=== PATIENT | male | born 1975 | race Caucasian/White ===

== ENCOUNTER 2017-01-20 18:09 | Inpatient (IN) | payer OTHER, MEDICARE ==
[~2017-01-20] VITALS: Ht 177.8 cm; Wt 95.3 kg
[~2017-01-20 18:09] MED LIST: COLACE100 MG PO; GOOD NEIGHBOR100 M5 PO; KEPPRA 500MG T500 MG PO; METFORMIN HCL500 MG PO; MIRTAZAPINE15 MG PO; NEURONTIN300 MG PO; OS-CAL 500500 M1 PO; OXYCODONE HYDRO10 M1 PO; OXYCODONE5 M1 PO; PROTONIX 40MG T40 MG PO; TRAZODONE100 MG PO; WARFARIN SODIU7.5 MG PO
--- NOTE | 2017-01-20 18:15 | NUR ---
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 PT HAD NO INCONTINENCE NO LOC.
--- NOTE | 2017-01-20 18:18 | ED NECK/BACK PAIN COMPLAINT ---
History of Present Illness General Chief Complaint: Low Back Pain/Injury Stated Complaint: BIBA FOR BACK PAIN Vital Signs & Intake/Output Vital Signs & Intake/Output Vital Signs Date Time Temp Pulse Resp B/P Pulse O2 O2 Flow FiO2 Ox Delivery Rate 01/21 709 97.3 75 18 130/74 93 Room Air 01/20 2210 77 22 124/71 98 Room Air 01/20 2200 96.9 67 20 120/78 94 Room Air 01/20 2046 97.8 81 16 130/74 95 Room Air 01/20 1820 98.5 92 18 129/64 92 Room Air ED Intake and Output 01/21 0000 01/20 1200 Intake Total Output Total 350 Balance -350 Output, Urine 350 Patient 210 lb Weight Allergies Coded Allergies: cat pelt standardized allergenic ex (CAT PELT STANDARDIZED EXTRACT) (CATS ) Reconcile Medications Folic Acid 1 MG TABLET 1 TAB PO DAILY SUPPLEMENT (Reported) Furosemide (Unknown Strength) TABLET (Unknown Dose) UNKNOWN (Reported) Gabapentin 300 MG CAPSULE 1 CAP PO TID NERVE PAIN (Reported) Levetiracetam (Keppra) 750 MG TABLET 1 TAB PO BID SEIZURES (Reported) Lidocaine 5 % ADH..PATCH 1 PAT TOP DAILY PAIN (Reported) Metformin HCl 500 MG TABLET 1 TAB PO BID DM (Reported) Oxycodone HCl 10 MG TABLET 1 TAB PO TID PAIN (Reported) Trazodone HCl 100 MG TABLET 1 TAB PO QPM SLEEP (Reported) Warfarin Sodium (Coumadin) (Unknown Strength) TABLET (Unknown Dose) PO AD BLOOD THINNER (Reported) Triage Note: PER PT GOING TO SIT IN CHAIR LAST NIGHT AND LEGS GAVE OUT LAST DOSE OF 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 PT HAD NO INCONTINENCE NO LOC. Past History Travel History Traveled to [place] past 21 day No Medical History Neurological: seizure, BRAIN LESIONS EENT: NONE Cardiovascular: NONE Respiratory: NONE Gastrointestinal: NONE Hepatic: NONE Renal: NONE Musculoskeletal: BACK PAIN Psychiatric: ETOH USE Endocrine: NIDDM Blood Disorders: DVT Cancer(s): NONE ALARM MECHANIC/Reproductive: NONE History of MRSA: No History of VRE: No History of CDIFF: No Surgical History Surgical History: non-contributory Psychosocial History Who do you live with Family Services at Home None What is your primary language South African Tobacco Use: Never used Progress Plan of Care: Orders Procedure Date/time Status Regular Diet 01/21 B Active PROTHROMBIN TIME 01/21 06 Complete CBC WITHOUT DIFFERENTIAL 01/21 06 Complete BASIC ELECTROLYTES PLUS BUN&CR 01/21 06 Complete Seizure Precautions 01/21 0143 Active PT EVAL MOD COMPLEX 30 MIN 01/21 UNK Complete Nursing Misc 01/21 UNK Active FingerStick- Glucose 01/21 UNK Active MISSING MEDICATION FORM 01/21 UNK Active PHYSICIAN CONSULT 01/21 UNK Active Vital Signs 01/20 2259 Active Teach/Educate 01/20 225 Active Pain Treatment and Response 01/20 2259 Active Nutritional Intake, Monitor 01/20 2259 Active Isolation 01/20 2259 Active Intake & Output 01/20 2259 Active Patient Care Conference 01/20 2259 Active Activity/Ambulation 01/20 225 Active Pathway - chart 01/20 221 Active House Staff 01/20 221 Active Patient Data 01/20 221 Active Saline Lock 01/20 2150 Active Misc Message 01/20 215 Active ED Holding Orders 01/20 215 Active Admit to inpatient 01/20 215 Active Vital Signs 01/20 215 Active Activity/Ambulation 01/20 215 Active Code Status 01/20 215 Active Intake & Output 01/20 2125 Active URINALYSIS 01/20 211 Complete Patient Data 01/20 210 Active PARTIAL THROMBOPLASTIN TIME 01/20 204 Complete PROTHROMBIN TIME 01/20 204 Complete COMPREHENSIVE METABOLIC PANEL 01/20 204 Complete CBC WITHOUT DIFFERENTIAL 01/20 2042 Complete PT Evaluate & Treat 01/20 UNK Active Lab Add-on Test 01/20 UNK Active VTE Mechanical Prophylaxis 01/20 UNK Active Current Medications Sig/Diane Start time Last Medication Dose Stop Time Status Admin Trazodone HCl 100 MG QPM 01/21 2200 AC (Desyrel) Hydromorphone HCl 1 MG Q6P PRN 01/21 1200 AC (Dilaudid) Hydromorphone HCl 2 MG Q6P PRN 01/21 1145 CAN (Dilaudid) Enoxaparin Sodium 40 MG DAILY 01/21 1000 CAN (Lovenox) Insulin Aspart 0 TIDAC 01/21 0800 AC (NovoLOG) Ibuprofen 600 MG Q6P PRN 01/20 2215 AC (Motrin) Laboratory Tests 01/21/17 0636: Anion Gap 8, Estimated GFR > 60, BUN/Creatinine Ratio 13.3, PT 28.5 H, INR 2.74 H, CBC w Diff NO MAN DIFF REQ, RBC 4.63 L, MCV 87.4, MCH 29.1, RDW 15.6 H, MPV 8.5, Gran % 67.8, Lymphocytes % 19.4 L, Monocytes % 10.3 H, Eosinophils % 2.1, Basophils % 0.4, Absolute Granulocytes 4.1, Absolute Lymphocytes 1.2, Absolute Monocytes 0.6, Absolute Eosinophils 0.1, Absolute Basophils 0, PUBS MCHC 33.3 01/20/170: Anion Gap 10, Estimated GFR > 60, BUN/Creatinine Ratio 11.7, Glucose 90, Calcium 9.5, Total Bilirubin 1.0, AST 24, ALT 27, Alkaline Phosphatase 141 H, Total Protein 7.3, Albumin 3.9, Globulin 3.4, Albumin/Globulin Ratio 1.1, PT 37.6 H, INR 3.63 H, APTT 45 H, CBC w Diff NO MAN DIFF REQ, RBC 4.73, MCV 86.7, MCH 28.7, RDW 15.2 H, MPV 8.0, Gran % 64.4, Lymphocytes % 23.1, Monocytes % 9.9 H, Eosinophils % 1.7, Basophils % 0.9, Absolute Granulocytes 4.2, Absolute Lymphocytes 1.5, Absolute Monocytes 0.6, Absolute Eosinophils 0.1, Absolute Basophils 0.1, PUBS MCHC 33.1, Urinalysis LIGHT H, Urine Color YEL, Urine Clarity CLEAR, Urine pH 7.5, Ur Specific [place] 1.020, Urine Protein TRACE H, Urine Ketones NEG, Urine Nitrite NEG, Urine Bilirubin NEG, Urine Urobilinogen 1.0, Ur Leukocyte Esterase NEG, Ur Microscopic SEDIMENT EXAMINED, Urine RBC RARE , Urine WBC RARE, Ur Epithelial Cells FEW, Urine Bacteria FEW H, Urine Mucus FEW, Urine Hemoglobin NEG, Urine Glucose NEG Departure Departure Condition: Stable Referrals: SANDY MANNING MD (PCP/Family) Departure Forms: Customer Survey General Discharge Information
[2017-01-20] MEDS ORDERED: OXYCODONE HCL10 M2 PO (18:20)
[2017-01-20] MEDS ORDERED: TRAZODONE HCL100 M1 PO (18:21)
[2017-01-20] MEDS ORDERED: COUMADIN2.5 M1 PO (18:21)
[2017-01-20] MEDS ORDERED: KEPPRA750 M1 PO (18:22)
[2017-01-20] MEDS ORDERED: FOLIC ACID1 M1 PO (18:22)
[2017-01-20] MEDS ORDERED: GABAPENTIN300 M2 PO (18:22)
[2017-01-20] MEDS ORDERED: METFORMIN HCL500 M3 PO (18:22)
[2017-01-20] MEDS ORDERED: LIDOCAINE1 EACH TOP (18:23)
[2017-01-20] MEDS ORDERED: FUROSEMIDE40 M1 PO (18:23)
--- NOTE | 2017-01-20 18:36 | ED NECK/BACK PAIN COMPLAINT ---
See Addendum History of Present Illness General Chief Complaint: Low Back Pain/Injury Stated Complaint: BIBA FOR BACK PAIN Source: patient, family Exam Limitations: no limitations Allergies Coded Allergies: cat pelt standardized allergenic ex (CAT PELT STANDARDIZED EXTRACT) (CATS ) Reconcile Medications Folic Acid 1 MG TABLET 1 TAB PO DAILY SUPPLEMENT (Reported) Furosemide (Unknown Strength) TABLET (Unknown Dose) UNKNOWN (Reported) Gabapentin 300 MG CAPSULE 1 CAP PO TID NERVE PAIN (Reported) Levetiracetam (Keppra) 750 MG TABLET 1 TAB PO BID SEIZURES (Reported) Lidocaine 5 % ADH..PATCH 1 PAT TOP DAILY PAIN (Reported) Metformin HCl 500 MG TABLET 1 TAB PO BID DM (Reported) Oxycodone HCl 10 MG TABLET 1 TAB PO TID PAIN (Reported) Trazodone HCl 100 MG TABLET 1 TAB PO QPM SLEEP (Reported) Warfarin Sodium (Coumadin) (Unknown Strength) TABLET (Unknown Dose) PO AD BLOOD THINNER (Reported) Triage Note: PER PT GOING TO SIT IN CHAIR LAST NIGHT AND LEGS GAVE OUT LAST DOSE OF OXYCODONE 10 MG 2 HRS HEAD OF INTEGRATED MEDIA WITH MINIMAL EFFECT. PT HAD NO INCONTINENCE NO LOC. Triage Nurses Notes Reviewed? yes Onset: Abrupt Duration: day(s): (1), constant, getting worse Timing: recent history Location: lumbar spine HPI: 41-year-old male brought into the emergency room by ambulance for low back pain. Patient has a history of brain tumor. Patient had been on prednisone chronically for a long time and therefore as a result has had some chronic issues with avascular necrosis of bilateral hips as well as he gets fractures easily. Patient reports that last night he slipped out of his chair and came down on the ground on his rear end and felt a crack. Patient has been having severe pain since then. Radiates down the left side. Denies any other associated symptoms. Pain is severe. Worse with range of motion. (TEN URBANO) Vital Signs & Intake/Output Vital Signs & Intake/Output Vital Signs Date Time Temp Pulse Resp B/P Pulse O2 O2 Flow FiO2 Ox Delivery Rate 01/22 0733 98.6 61 20 102/70 97 01/21 2229 98.2 84 20 122/82 96 01/21 1457 98.2 86 20 114/70 94 Room Air ED Intake and Output 03/09 0000 01/21 1200 Intake Total 800 120 Output Total 1000 Balance -200 120 Intake, IV 0 Intake, Oral 800 120 Number 0 Bowel Movements Output, Urine 1000 Past History Travel History Traveled to [place] past 21 day No Medical History Any Pertinent Medical History? see below for history Neurological: seizure, BRAIN LESIONS EENT: NONE Cardiovascular: NONE Respiratory: NONE Gastrointestinal: NONE Hepatic: NONE Renal: NONE Musculoskeletal: NONE Psychiatric: ETOH USE Endocrine: NONE Blood Disorders: DVT Cancer(s): NONE MANAGER INTERVENTIONAL/Reproductive: NONE History of MRSA: No History of VRE: No History of CDIFF: No Surgical History Surgical History: non-contributory Psychosocial History Who do you live with Family Services at Home None What is your primary language Lebanese Tobacco Use: Never used Family History Hx Contributory? No (TEN URBANO) Review of Systems Review of Systems Constitutional: Reports: no symptoms. Eyes: Reports: no symptoms. Ears, Nose, Throat, Mouth: Reports: no symptoms. Respiratory: Reports: no symptoms. Cardiovascular: Reports: no symptoms. Gastrointestinal/Abdominal: Reports: no symptoms. Musculoskeletal: Reports: see HPI. Skin: Reports: no symptoms. Neurological/Psychological: Reports: no symptoms. All Other Systems: Reviewed and Negative (TEN URBANO) Physical Exam Physical Exam General Appearance: well developed/nourished, mild distress Head: atraumatic Eyes: Bilateral: normal appearance, EOMI. Ears, Nose, Throat, Mouth: hearing grossly normal, moist mucous membrane Neck: normal inspection, full range of motion Respiratory: normal breath sounds, no respiratory distress Back: normal inspection, vertebral tenderness Extremities: normal range of motion Motor: Deficit L4 Right: No Deficit L4 Left: No Deficit L5 Right: No Deficit L5 Left: No Deficit S1 Right: No Deficit S1 Right: No Neurologic/Psych: awake, alert, oriented x 3, normal mood/affect Skin: intact, normal color, warm/dry (TEN URBANO) Progress Differential Diagnosis: cauda equina syn, herniated disc, myofascial strain, pyelo/UTI, sciatica, spinal cord inj, thoracic outlet syn, ureterolithiasis, COMPRESSION FRACTURE Diagnostic Imaging: Viewed by Me: CT Scan. Discussed w/RAD: CT Scan. Radiology Impression: SERVICE DATE: 01/20/17 EXAM TYPE: CAT - CT LUMB SPINE WO IV CONTRAST EXAMINATION: CT LUMBAR SPINE WITHOUT CONTRAST CLINICAL INFORMATION: Fall. Pain. History of osteoporosis. COMPARISON: Lumbar spine radiographs 04/25/2013. CT scan of the abdomen and pelvis 09/04/2008. TECHNIQUE: Helical non-contrast CT images were obtained through the lumbar spine and 1.25 and 2.5 mm axial reconstructions were reviewed along with sagittal and coronal MPRs. DLP: 781.73 mGy-cm FINDINGS: There is acute compression fracture of the L4 vertebral body with impaction of the upper endplate causing 10% vertebral body height loss centrally. There is no anterior wedging. No retropulsion of posterior cortex. Vertebral body heights are otherwise maintained and intervertebral disc spaces are preserved. There is no evidence of canal or neuroforaminal compromise. Limited visualization of the retroperitoneal structures demonstrates a retroaortic left renal vein. An IVC filter is noted below the venous confluence of the left renal vein and the IVC. Psoas and paraspinal muscle groups are symmetric. IMPRESSION: There is an acute compression fracture of the L4 vertebral body with impaction of the upper endplate causing 10% vertebral body height loss centrally. There is no anterior wedging. No retropulsion of the posterior cortex. Grossly no evidence of canal or neuroforaminal compromise. DICTATED BY: BIJAL DAVIS,SRIRAM Molina DATE/TIME DICTATED:01/20/171899 REFINISHER:TADEO DATE/TIME TRANSCRIBED:1899 Hand-Off Endorsed To: GASTON ESPINO Endorsed Time: 1945 Pending: labs, other (reevaluation) (TEN URBANO) Plan of Care: Orders Procedure Date/time Status PROTHROMBIN TIME 01/22 600 Complete CBC WITHOUT DIFFERENTIAL 01/22 600 Complete CALCIUM 01/21 0636 Complete Lab Add-on Test 01/21 UNK Active Nursing Misc 01/21 UNK Active Current Medications Sig/Diane Start time Last Medication Dose Stop Time Status Admin Hydromorphone HCl 2 MG Q6P PRN 01/21 1145 CAN (Dilaudid) Insulin Aspart 0 TIDAC 01/21 0800 AC (NovoLOG) Ibuprofen 600 MG Q6P PRN 01/20 2215 AC (Motrin) Laboratory Tests 01/22/17 0646: PT 23.4 H, INR 2.25 H, CBC w Diff NO MAN DIFF REQ, RBC 4.55 L, MCV 87.8, MCH 28.9, RDW 15.8 H, MPV 8.4, Gran % 62.3, Lymphocytes % 24.5, Monocytes % 10.1 H , Eosinophils % 2.5, Basophils % 0.6, Absolute Granulocytes 3.5, Absolute Lymphocytes 1.4, Absolute Monocytes 0.6, Absolute Eosinophils 0.1, Absolute Basophils 0, PUBS MCHC 32.9 L After medications were administered patient was severely limited to get out of bed and is a fall risk and has gait instability and which patient will be admitted for lumbar spine compression fracture and will require three-day stay and was likely short-term rehabilitation. Discussed disposition and plan with patient and family member who agrees (GASTON ESPINO) Departure Departure Disposition: STILL A PATIENT Condition: Stable Clinical Impression Primary Impression: Lumbar compression fracture Secondary Impressions: Gait instability, Intractable back pain Referrals: SANDY MANNING MD (PCP/Family) Departure Forms: Customer Survey General Discharge Information (TEN URBANO) Admission Note Spoke With: SANDY MANNING MD Documentation of Exam: Documentation of any treatments & extenuating circumstances including Concerns Regarding Discharge (functional status, medication knowledge or non-compliance, living conditions, etc.) that warrant an admission rather than observation: [ Intractable back pain with gait instability. Patient is unsafe to go home. Patient will require IV pain medication and PT evaluation.] PA/ADVERTISING AGENCY MANAGER Co-Sign Statement Statement: ED Attending supervision documentation- [X] I saw and evaluated the patient. I have also reviewed all the pertinent lab results and diagnostic results. I agree with the findings and the plan of care as documented in the PA's/ADVERTISING AGENCY MANAGER's documentation. [X] I have reviewed the ED Record and agree with the PA's/ADVERTISING AGENCY MANAGER's documentation. [] Additions or exceptions (if any) to the PAs/ADVERTISING AGENCY MANAGER's note and plan are summarized below: [] (YISSEL DAVIS,JOE Martinez) Admission Note Documentation of Exam: Documentation of any treatments & extenuating circumstances including Concerns Regarding Discharge (functional status, medication knowledge or non-compliance, living conditions, etc.) that warrant an admission rather than observation: (GASTON ESPINO) PA/ADVERTISING AGENCY MANAGER Co-Sign Statement Statement: ED Attending supervision documentation- [] I saw and evaluated the patient. I have also reviewed all the pertinent lab results and diagnostic results. I agree with the findings and the plan of care as documented in the PA's/ADVERTISING AGENCY MANAGER's documentation. [] I have reviewed the ED Record and agree with the PA's/ADVERTISING AGENCY MANAGER's documentation. [] Additions or exceptions (if any) to the PAs/ADVERTISING AGENCY MANAGER's note and plan are summarized below: [] (FRANCES DAVIS,GUZMAN) Absolute Monocytes 0.6, Absolute Eosinophils 0.1, Absolute Basophils 0, [facility] MCHC 33.3 01/20/172109: Anion Gap 10, Estimated GFR > 60, BUN/Creatinine Ratio 11.7, Glucose 90, Calcium 9.5, Total Bilirubin 1.0, AST 24, ALT 27, Alkaline Phosphatase 141 H, Total Protein 7.3, Albumin 3.9, Globulin 3.4, Albumin/Globulin Ratio 1.1, PT 37.6 H, INR 3.63 H, APTT 45 H, CBC w Diff NO MAN DIFF REQ, RBC 4.73, MCV 86.7, MCH 28.7, RDW 15.2 H, MPV 8.0, Gran % 64.4, Lymphocytes % 23.1, Monocytes % 9.9 H, Eosinophils % 1.7, Basophils % 0.9, Absolute Granulocytes 4.2, Absolute Lymphocytes 1.5, Absolute Monocytes 0.6, Absolute Eosinophils 0.1, Absolute Basophils 0.1, PUBS MCHC 33.1, Urinalysis LIGHT H, Urine Color YEL, Urine Clarity CLEAR, Urine pH 7.5, Ur Specific [place] 1.020, Urine Protein TRACE H, Urine Ketones NEG, Urine Nitrite NEG, Urine Bilirubin NEG, Urine Urobilinogen 1.0, Ur Leukocyte Esterase NEG, Ur Microscopic SEDIMENT EXAMINED, Urine RBC RARE , Urine WBC RARE, Ur Epithelial Cells FEW, Urine Bacteria FEW H, Urine Mucus FEW, Urine Hemoglobin NEG, Urine Glucose NEG After medications were administered patient was severely limited to get out of bed and is a fall risk and has gait instability and which patient will be admitted for lumbar spine compression fracture and will require three-day stay and was likely short-term rehabilitation. Discussed disposition and plan with patient and family member who agrees (BENTON MICHAEL,GASTON) Departure Departure Disposition: STILL A PATIENT Condition: Stable Clinical Impression Primary Impression: Lumbar compression fracture Secondary Impressions: Gait instability, Intractable back pain Referrals: SANDY MANNING MD (PCP/Family) Departure Forms: Customer Survey General Discharge Information (TEN URBANO) Admission Note Spoke With: SANDY MANNING MD Documentation of Exam: Documentation of any treatments & extenuating circumstances including Concerns Regarding Discharge (functional status, medication knowledge or non-compliance, living conditions, etc.) that warrant an admission rather than observation: [ Intractable back pain with gait instability. Patient is unsafe to go home. Patient will require IV pain medication and PT evaluation.] PA/ADVERTISING AGENCY MANAGER Co-Sign Statement Statement: ED Attending supervision documentation- [X] I saw and evaluated the patient. I have also reviewed all the pertinent lab results and diagnostic results. I agree with the findings and the plan of care as documented in the PA's/ADVERTISING AGENCY MANAGER's documentation. [X] I have reviewed the ED Record and agree with the PA's/ADVERTISING AGENCY MANAGER's documentation. [] Additions or exceptions (if any) to the PAs/ADVERTISING AGENCY MANAGER's note and plan are summarized below: [] (YISSEL DAVIS,JOE Martinez) Admission Note Documentation of Exam: Documentation of any treatments & extenuating circumstances including Concerns Regarding Discharge (functional status, medication knowledge or non-compliance, living conditions, etc.) that warrant an admission rather than observation: (GASTON ESPINO) PA/ADVERTISING AGENCY MANAGER Co-Sign Statement Statement: ED Attending supervision documentation- [] I saw and evaluated the patient. I have also reviewed all the pertinent lab results and diagnostic results. I agree with the findings and the plan of care as documented in the PA's/ADVERTISING AGENCY MANAGER's documentation. [] I have reviewed the ED Record and agree with the PA's/ADVERTISING AGENCY MANAGER's documentation. [] Additions or exceptions (if any) to the PAs/ADVERTISING AGENCY MANAGER's note and plan are summarized below: [] (FRANCES DAVIS,GUZMAN)
--- NOTE | 2017-01-20 18:52 | NUR ---
PT AT CT SCAN
--- NOTE | 2017-01-20 19:10 | CT SCAN REPORT ---
EXAMINATION: CT LUMBAR SPINE WITHOUT CONTRAST CLINICAL INFORMATION: Fall. Pain. History of osteoporosis. COMPARISON: Lumbar spine radiographs 04/25/2013. CT scan of the abdomen and pelvis 09/04/2008. TECHNIQUE: Helical non-contrast CT images were obtained through the lumbar spine and 1.25 and 2.5 mm axial reconstructions were reviewed along with sagittal and coronal MPRs. DLP: 781.73 mGy-cm FINDINGS: There is acute compression fracture of the L4 vertebral body with impaction of the upper endplate causing 10% vertebral body height loss centrally. There is no anterior wedging. No retropulsion of posterior cortex. Vertebral body heights are otherwise maintained and intervertebral disc spaces are preserved. There is no evidence of canal or neuroforaminal compromise. Limited visualization of the retroperitoneal structures demonstrates a retroaortic left renal vein. An IVC filter is noted below the venous confluence of the left renal vein and the IVC. Psoas and paraspinal muscle groups are symmetric. IMPRESSION: There is an acute compression fracture of the L4 vertebral body with impaction of the upper endplate causing 10% vertebral body height loss centrally. There is no anterior wedging. No retropulsion of the posterior cortex. Grossly no evidence of canal or neuroforaminal compromise.
--- NOTE | 2017-01-20 20:42 | NUR ---
PT UNABLE TO AMBULATE WITH SIGNIFICANT ASSISTANCE, MOM AT BEDSIDE, DOES NOT GIVE ANY ENCOURAGEMENT TO PT, PRIOR TO ATTEMPTING TO AMBULATE WITH CANE, MOTHER STATES, HE CANT DO IT, I CANT LISTEN TO HIM SCREAMING AND THE PAIN MEDS DON'T WORK. PT ENCOURAGED TO TRY, ATTEMPTED BUT CAN ONLY GET UP [address] WITHOUT SIGNIFICANT INCREASE IN PAIN.
--- NOTE | 2017-01-20 21:00 | NUR ---
PER MOTHER PT NEEDS TO GO TO LONGTERM FROM HERE SHE CANNOT MANAGE HIM AT HOME, PT "JUST LEFT [facility]" MOTHER WOULD LIKE HIM TO GO BACK THERE.
--- NOTE | 2017-01-20 21:23 | NUR ---
LABS DRAWN AND SENT PT ONCOUMADIN WAS TO HAVE LABS DONE IN AM AND DR. PENNINGTON IN AM.
[2017-01-20 21:31] LABS: ABSOLUTE BASOPHIL COUNT 0.1 /CUMM (0.0-0.2); ABSOLUTE EOSINOPHIL COUNT 0.1 /CUMM (0.0-0.7); ABSOLUTE GRANULOCYTE CT 4.2 /CUMM (1.4-6.5); ABSOLUTE LYMPH COUNT 1.5 /CUMM (1.2-3.4); ABSOLUTE MONOCYTE COUNT 0.6 /CUMM (0.10-0.60); BASOPHIL % 0.9 % (0.0-2.0); EOSINOPHIL % 1.7 % (0-5); GRANULOCYTE % 64.4 % (42.2-75.2); MEAN CORPUSCULAR HGB 28.7 PG (27.0-31.0); MEAN CORPUSCULAR HGB CONC 33.1 G/DL (33.0-37.0); MEAN CORPUSCULAR VOLUME 86.7 FL (80.0-94.0); PLATELET COUNT 183 /CUMM (130-400); RBC DISTRIBUTION WIDTH 15.2 % (11.5-14.5); RED BLOOD CELL CT 4.73 /CUMM (4.70-6.10); WHITE BLOOD CELL COUNT 6.5 /CUMM (4.8-10.8)
[2017-01-20 21:40] LABS: PT 37.6 SEC (9.4-12.5); PTT 45 SEC (25-37)
--- NOTE | 2017-01-20 21:47 | NUR ---
PT MED WITH 1 MG OF DILAUDID IV, RED SLIPPERS PLACED, FALL LBAND IN PLACE.
[2017-01-20 22:00] VITALS: BP 120/78
--- NOTE | 2017-01-20 22:03 | NUR ---
HOUSESTAFF AT BEDSIDE.
--- NOTE | 2017-01-20 22:03 | NUR ---
HOUSESTAFF AT BEDSIDE FOR EVAL.
--- NOTE | 2017-01-20 22:05 | History & Physical ---
JON DAVIS,[facility] 01/20/17 2204: General Information and HPI MD Statement: I have seen and personally examined SRIRAM GILL and documented this H&P. The patient is a 41 year old M who presented with a patient stated chief complaint of back pain. Source of Information: patient Exam Limitations: no limitations History of Present Illness: This is a 41-year-old gentleman with past medical history of type 2 diabetes, chronic back pain seizures, brain lesions, pulmonary embolism 2013 on Coumadin therapy, b/l hip degeneration with some necrosis secondary to chronic prednisone use who was in rehabilitation for 8 months and discharged 3 weeks ago is BIBA for evaluation of severe back pain secondary to a fall. Patient reports that last night, while attempting to stand up using his crutchesm he fell down on his buttocks and felt a cracking sound. Patient denies hitting his head and losing consciousness. He reports expressing severe pain after the episode and today in the afternoon his mother decided to activate EMS. She describes the pain as severe stabbing 10 out of 10 worsened by movement or range of motion. He reports taking his home medication of Oxycodone with minimal relief. He denies any dizziness, focal neurological deficits, seizure-like activities, chest pain, palpitation, fever, chills, nausea, vomiting abdominal pain or dysuria. Of note, patient has been wheelchair-bound most of the time during rehabilitation. He is also scheduled for bilateral hip replacement. Currently at home patient uses crutches to help him stand up and minimally ambulate. Allergies/Medications Allergies: Coded Allergies: cat pelt standardized allergenic ex (CAT PELT STANDARDIZED EXTRACT) (CATS ) Home Med list Folic Acid 1 MG TABLET 1 TAB PO DAILY SUPPLEMENT (Reported) Furosemide (Unknown Strength) TABLET (Unknown Dose) UNKNOWN (Reported) Gabapentin 300 MG CAPSULE 1 CAP PO TID NERVE PAIN (Reported) Levetiracetam (Keppra) 750 MG TABLET 1 TAB PO BID SEIZURES (Reported) Lidocaine 5 % ADH..PATCH 1 PAT TOP DAILY PAIN (Reported) Metformin HCl 500 MG TABLET 1 TAB PO BID DM (Reported) Oxycodone HCl 10 MG TABLET 1 TAB PO TID PAIN (Reported) Trazodone HCl 100 MG TABLET 1 TAB PO QPM SLEEP (Reported) Warfarin Sodium (Coumadin) (Unknown Strength) TABLET (Unknown Dose) PO AD BLOOD THINNER (Reported) Past History Travel History Traveled to [place] past 21 day No Medical History Neurological: seizure, BRAIN LESIONS EENT: NONE Cardiovascular: NONE Respiratory: PULM EMBOLUS Gastrointestinal: NONE Hepatic: NONE Renal: NONE Musculoskeletal: BACK PAIN, BILAT NECROCTI HIPS Psychiatric: ETOH USE Endocrine: NIDDM Blood Disorders: DVT Cancer(s): NONE SALES AND LEASING CONSULTANT/Reproductive: NONE History of MRSA: No History of VRE: No History of CDIFF: No Surgical History Surgical History: non-contributory Past Family/Social History Psychosocial History Services at Home: None Review of Systems Review of Systems Constitutional: Reports: see HPI. EENTM: Denies: double vision, visual changes, eye pain. Cardiovascular: Denies: chest pain, edema, orthopena, palpitations, peripheral edema, syncope. Respiratory: Denies: cough, short of breath, sputum production, wheezing. GI: Denies: diarrhea, melena, nausea, vomiting. Genitourinary: Denies: frequency, hematuria, hesitation. Musculoskeletal: Reports: back pain. Skin: Denies: change in skin color, erythema. Neurological/Psychological: Denies: numbness. Hematologic/Endocrine: Reports: no symptoms. Exam & Diagnostic Data Last 24 Hrs of Vital Signs/I&O Vital Signs Date Time Temp Pulse Resp B/P Pulse O2 O2 Flow FiO2 Ox Delivery Rate 01/21 0709 97.3 75 18 130/74 93 Room Air 01/20 2210 77 22 124/71 98 Room Air 01/20 2200 96.9 67 20 120/78 94 Room Air 01/20 2046 97.8 81 16 130/74 95 Room Air 01/20 1820 98.5 92 18 129/64 92 Room Air Intake & Output 01/21 0800 / 0000 01/20 1600 Intake Total 120 Output Total 350 Balance 120 -350 Intake, IV 0 Intake, Oral 120 Number 0 Bowel Movements Output, Urine 350 Patient 95.254 kg Weight Physical Exam General Appearance Alert, Oriented X3, Cooperative Skin No Significant Lesion HEENT Atraumatic, PERRLA, EOMI Neck Supple, No JVD, No thryomegaly, +2 Carotid Pulse wo Bruit Lymphatic Cervical nl Cardiovascular Regular Rate, Normal S1, Normal S2, No Murmurs, Gallops, Rubs Lungs Clear to Auscultation, Normal Air Movement Abdomen Normal Bowel Sounds, Soft, No Tenderness Neurological Normal Speech, Sensation Intact, Reflexes 2+, not able to assess pain due to patient's pain Extremities No Clubbing, No Cyanosis, Normal Pulses, No Tenderness/Swelling Assessment/Plan Assessment: This is a 41-year-old gentleman with a past medical history significant for chronic back pain, tonic-clonic seizures, peripheral neuropathy, chronic prednisone use is resulting in bilateral hip degenerative changes and scheduled for bilateral hip replacement in the near future, is presenting for evaluation of acute low back pain secondary to a fall. Assessment and plan #Intractable back pain This is secondary to a fall. Plan Would admit to general medicine floor Will start patient on oxycodone to monitor pain morphine for severe pain #Acute Compression fracture Radiological finding of a compression fracture of L4 vertebral body. Secondary to a fall in the setting of chronic use of prednisone. Plan Conservative management with pain regimen, bracing, and rehabilitation is normally adequate for compression fractures with no neurological complications If pain is persistent and intractable, percutaneous vertebroplasty could be considered Will obtain orthopedic consult in the morning PT/OT evaluation tomorrow morning As Ranked By This Provider Problem List: 1. Intractable back pain 2. Lumbar compression fracture Core Measures/Miscellaneous Acute Coronary Syndrome ACS Diagnosis: No Cerebrovascular Accident CVA/TIA Diagnosis: No Congestive Heart Failure CHF Diagnosis: No Venous Thromboembolism VTE Risk Factors: Age > 40 No [facility] VTE prophylaxis d/t: No contraindications No VTE Pharm Prophylaxis d/t: No contraindications VTE Diagnosis: No VTE Type: NONE VTE Confirmed by (Test): NONE Severe Sepsis Severe Sepsis Present: No Septic Shock Septic Shock Present: No Miscellaneous Documentation Attending Case Discussed With: SANDY MANNING MD Primary Care Physician: SANDY MANNING MD Patient sees these Specialists . 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 Patient reported that last night he slipped out of his chair and then came down on the floor, and felt a crack, denied any evidence of head injury. Since then he's been having severe lower back pain as 9/10 in severity sharp in character tried oxycodone at home without any improvement in his symptoms, worse with movement, not associated with any numbness and tingling or weakness in his legs denied any urinary bowel incontinence. Patient remained in pain all day and decided to come to the ED for further evaluation. While on admission temperature 98.5, pulse 92, respiratory rate 18, blood pressure 128/64 on room air. On examination General Appearance: Alert and oriented 3 , not in acute distress Skin: Grossly normal HEENT: PEERLA Neck: Supple, No JVD Cardiovascular: Regular Rate, Normal S1, Normal S2, No Murmurs Lungs: Chest clear to auscultation bilaterally on exam Abdomen: Normal Bowel Sounds, without any tenderness, Extremities: No evidence of any lower extremity swelling/injuries. Vascular: Normal Pulses. Pertinent labs: Normal CBC and BEP, slightly elevated ALP CT lumbar spine:There is an acute compression fracture of the L4 vertebral body with impaction of the upper endplate causing 10% vertebral body height loss centrally. There is no anterior wedging. No retropulsion of the posterior cortex. Grossly no evidence of canal or neuroforaminal compromise. Assessment and plan: 1. Acute compression fracture of the L4 vertebral body: * We'll admit the patient is a [facility] floor * And obtain orthopedic consult in the morning * Moderate to severe pain control with IV morphine and oxycodone * PT/OT consult in the morning * Patient will be evaluated for possible rehabilitation. 2. History of diabetes mellitus with peripheral neuropathy * Hold metformin * Maintain finger sugar controlled with NovoLog sliding scale * Accu-Cheks. * Continue home dose of gabapentin 3. History of pulmonary embolism: * INR today is 3.63 * Repeat INR tomorrow dose Coumadin accordingly. 4. History of anxiety with insomnia * Continue home dose of trazodone Moderate to severe pain control with IV morphine and oxycodone DVT prophylaxis with Lovenox Patient is full code
--- NOTE | 2017-01-20 22:08 | NUR ---
Emergency Dept UC Admit Note: To be admitted to [facility] by DR MANNING with FRACTURE,PLACEMENT as the diagnosis, to [facility] location. Nursing Resident Caregiver and admitting notified 01/20/17 at 2153 PT WILL GO TO ROOM 210-1
--- NOTE | 2017-01-20 22:40 | NUR ---
PT'S BED HAS CHANGED TO 216-1
--- NOTE | 2017-01-20 22:41 | NUR ---
REPORT TO Mario OSEGUERA TRANSPORT BOOKED.
--- NOTE | 2017-01-21 00:28 | NUR ---
PT ARRIVED TO FLOOR AT 2247 VIA STRETCHER. A&OX3, ON RA, LUNGS CLEAR, VSS. COMPLIANTS OF PAIN WHEN TRANSFERRING FROM STRETCHER TO BED, PT REQUESTING TRAZADONE MED HE NORMALLY TAKES AT HOME, DENIES NEED FOR PAIN MEDICATION AT THIS TIME. EXPLAINED PAIN MEDS AVAILABLE TO HIM, ONE TIME ORDER OF TRAZADONE ORDERED. SKIN INTACT, +SENSATION OF LOWER EXTREMITIES, PT STATES BASELINE IS WHEELCHAIR DEPENDENT, BED ALARM IN PLACE AND FALL PRECAUTIONS IN PLACE. IV #[address], WILL CONTINUE TO MONITOR.
[2017-01-21 07:09] VITALS: BP 130/74
--- NOTE | 2017-01-21 07:26 | PN- Housestaff ---
Subjective Follow-up For: Low back pain Subjective: I saw and examined the patient this morning. He is alert awake oriented appears in mild distress, reports 8/10 pain in the lower back. Patient reports weakness in his legs during the last 8 months for which he has been wheelchair-bound. Patient denies bowel and bladder incontinence, tingling or numbness in the lower extremities. Denies any headache, coughing, fever chills, shortness of breath, abdominal pain , changes in the stool or urine. Review of Systems Constitutional: Reports: weakness. Denies: chills, fever. EENTM: Reports: no symptoms. Cardiovascular: Denies: chest pain, palpitations. Respiratory: Denies: cough, short of breath. Gastrointestinal: Denies: abdominal pain, changes in stool. Genitourinary: Denies: discharge, dysuria, frequency. Musculoskeletal: Reports: back pain. Denies: joint pain, joint swelling. Skin: Reports: no symptoms. Neurological/Psychological: Reports: weakness. Hematologic/Endocrine: Reports: no symptoms. Objective Last 24 Hrs of Vital Signs/I&O Vital Signs Date Time Temp Pulse Resp B/P Pulse O2 O2 Flow FiO2 Ox Delivery Rate 01/21 0709 97.3 75 18 130/74 93 Room Air 01/20 2210 77 22 124/71 98 Room Air 01/20 2200 96.9 67 20 120/78 94 Room Air 01/20 2046 97.8 81 16 130/74 95 Room Air 01/20 1820 98.5 92 18 129/64 92 Room Air Intake & Output 01/21 1600 /08 0800 / 0000 Intake Total 120 Output Total 350 Balance 120 -350 Intake, IV 0 Intake, Oral 120 Number 0 Bowel Movements Output, Urine 350 Patient 95.254 kg Weight Physical Exam General Appearance: Alert, Oriented X3, Cooperative, Mild Distress Skin: No Significant Lesion HEENT: Atraumatic, EOMI Neck: Supple, No JVD Cardiovascular: Regular Rate, Normal S1, Normal S2, No Murmurs Lungs: Clear to Auscultation, Normal Air Movement Abdomen: Soft, No Tenderness Neurological: Normal Speech, Normal Tone Extremities: Normal Pulses, No Tenderness/Swelling Vascular: Pulses Symmetrical Current Medications: Current Medications Sig/Diane Start time Last Medication Dose Route Stop Time Status Admin Diazepam 0 .STK-MED ONE 01/20 1918 DC .ROUTE Diazepam 5 MG ONCE ONE 01/20 1845 DC 01/20 IV 01/20 1846 191 Enoxaparin Sodium 40 MG DAILY 01/21 1000 AC SC Gabapentin 0 .STK-MED ONE 01/21 2240 DC PO Gabapentin 300 MG TID 01/20 2217 AC 01/20 PO 2241 Hydromorphone HCl 1 MG ONCE ONE 01/20 2145 DC 01/20 IV 01/20 Hydromorphone HCl 0 .STK-MED ONE 01/20 2145 DC .ROUTE Hydromorphone HCl 0 .STK-MED ONE 01/20 1937 DC .ROUTE Hydromorphone HCl 1 MG ONCE ONE 01/20 1845 DC 01/20 IV 01/20 Ibuprofen 600 MG Q6P PRN 01/20 2215 AC PO Insulin Aspart 0 TIDAC 01/21 08 AC SC Levetiracetam 750 MG BID 01/20 2245 AC 01/20 PO 2241 Morphine Sulfate 4 MG Q4P PRN 01/20 2215 AC 01/21 IV 0903 Oxycodone HCl 10 MG Q4-6 PRN PRN 01/20 221 AC 01/21 PO 0755 Trazodone HCl 100 MG QPM 01/21 2200 AC PO Trazodone HCl 100 MG ONCE ONE 01/21 0015 DC 01/21 PO 01/21 0016 0041 Last 24 Hrs of Lab/Osorio Results Last 24 Hrs of Labs/Mics: Laboratory Tests 01/21/17 0636: Anion Gap 8, Estimated GFR > 60, BUN/Creatinine Ratio 13.3, PT 28.5 H, INR 2.74 H, CBC w Diff NO MAN DIFF REQ, RBC 4.63 L, MCV 87.4, MCH 29.1, RDW 15.6 H, MPV 8.5, Gran % 67.8, Lymphocytes % 19.4 L, Monocytes % 10.3 H, Eosinophils % 2.1, Basophils % 0.4, Absolute Granulocytes 4.1, Absolute Lymphocytes 1.2, Absolute Monocytes 0.6, Absolute Eosinophils 0.1, Absolute Basophils 0, PUBS MCHC 33.3 01/20/172109: Anion Gap 10, Estimated GFR > 60, BUN/Creatinine Ratio 11.7, Glucose 90, Calcium 9.5, Total Bilirubin 1.0, AST 24, ALT 27, Alkaline Phosphatase 141 H, Total Protein 7.3, Albumin 3.9, Globulin 3.4, Albumin/Globulin Ratio 1.1, PT 37.6 H, INR 3.63 H, APTT 45 H, CBC w Diff NO MAN DIFF REQ, RBC 4.73, MCV 86.7, MCH 28.7, RDW 15.2 H, MPV 8.0, Gran % 64.4, Lymphocytes % 23.1, Monocytes % 9.9 H, Eosinophils % 1.7, Basophils % 0.9, Absolute Granulocytes 4.2, Absolute Lymphocytes 1.5, Absolute Monocytes 0.6, Absolute Eosinophils 0.1, Absolute Basophils 0.1, PUBS MCHC 33.1, Urinalysis LIGHT H, Urine Color YEL, Urine Clarity CLEAR, Urine pH 7.5, Ur Specific [place] 1.020, Urine Protein TRACE H, Urine Ketones NEG, Urine Nitrite NEG, Urine Bilirubin NEG, Urine Urobilinogen 1.0, Ur Leukocyte Esterase NEG, Ur Microscopic SEDIMENT EXAMINED, Urine RBC RARE , Urine WBC RARE, Ur Epithelial Cells FEW, Urine Bacteria FEW H, Urine Mucus FEW, Urine Hemoglobin NEG, Urine Glucose NEG Assessment/Plan Assessment: Patient is a 41-year-old woman with a past medical history significant for 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 Problem list and plan: Acute compression fracture of the L4 vertebral body * Obtained orthopedic consult in the morning, followed recs, ordered a lumbosacral corset type brace * Moderate to severe pain control with IV dilaudid and oxycodone * PT/OT consult placed, will work further after immobilizing of the lumbar spine with the brace * Patient will be evaluated for possible rehabilitation History of diabetes mellitus with peripheral neuropathy * Hold metformin * Maintain finger sugar controlled with NovoLog sliding scale * Accu-Cheks. * Continue home dose of gabapentin History of pulmonary embolism Patient has been taking coumadin 2.5 mg most recently (was previously on a combination of 2.5 and 4). He tool 2.5 mg for 2 consecutive days before presentation and came with INR of 3.63 * INR today is 2.7 * gave 2 mg coumadin today, check INr again tomorrow, attending, Dr. Cornejo aware of the plan. History of anxiety with insomnia * Continue home dose of trazodone Regular diet Moderate to severe pain control with IV morphine and oxycodone DVT prophylaxis coumadin (home med) Full code Problem List: 1. Alcohol abuse 2. Seizure 3. History of pulmonary embolism 4. Gait instability 5. Lumbar compression fracture Pain Ratin Pain Location: lower back Pain Goal: Pain 4 or less Pain Plan: Tylenol for mild pain, Oxycodone for moderate pain, morphine for severe pain Tomorrow's Labs & Rationales: INR (on coumadin) * INR today is 3.63 * Repeat INR tomorrow dose Coumadin accordingly. History of anxiety with insomnia * Continue home dose of trazodone Regular diet Moderate to severe pain control with IV morphine and oxycodone DVT prophylaxis coumadin (home med) Full code Problem List: 1. Alcohol abuse 2. Seizure 3. History of pulmonary embolism 4. Gait instability 5. Lumbar compression fracture Pain Ratin Pain Location: lower back Pain Goal: Pain 4 or less Pain Plan: Tylenol for mild pain, Oxycodone for moderate pain, morphine for severe pain On examination General Appearance: Alert and oriented 3 , not in acute distress Skin: Grossly normal HEENT: PEERLA Neck: Supple, No JVD Cardiovascular: Regular Rate, Normal S1, Normal S2, No Murmurs Lungs: Chest clear to auscultation bilaterally on exam Abdomen: Normal Bowel Sounds, without any tenderness, Extremities: No evidence of any lower extremity swelling/injuries. Vascular: Normal Pulses. Pertinent labs: Normal CBC and BEP, slightly elevated ALP CT lumbar spine:There is an acute compression fracture of the L4 vertebral body with impaction of the upper endplate causing 10% vertebral body height loss centrally. There is no anterior wedging. No retropulsion of the posterior cortex. Grossly no evidence of canal or neuroforaminal compromise. Assessment and plan: Acute compression fracture of the L4 vertebral body * We'll admit the patient is a [facility] floor * And obtain orthopedic consult in the morning * Moderate to severe pain control with IV morphine and oxycodone * PT/OT consult in the morning * Patient will be evaluated for possible rehabilitation. History of diabetes mellitus with peripheral neuropathy * Hold metformin * Maintain finger sugar controlled with NovoLog sliding scale * Accu-Cheks. * Continue home dose of gabapentin History of pulmonary embolism * INR today is 3.63 * Repeat INR tomorrow dose Coumadin accordingly. History of anxiety with insomnia * Continue home dose of trazodone Regular diet Moderate to severe pain control with IV morphine and oxycodone DVT prophylaxis with Lovenox Full code Problem List: 1. Alcohol abuse 2. Seizure 3. History of pulmonary embolism 4. Gait instability 5. Lumbar compression fracture Pain Ratin Pain Location: lower back Pain Goal: Pain 4 or less Pain Plan: Tylenol for mild pain, Oxycodone for moderate pain, morphine for severe pain
[2017-01-21 08:19] LABS: ABSOLUTE BASOPHIL COUNT 0 /CUMM (0.0-0.2); ABSOLUTE EOSINOPHIL COUNT 0.1 /CUMM (0.0-0.7); ABSOLUTE GRANULOCYTE CT 4.1 /CUMM (1.4-6.5); ABSOLUTE LYMPH COUNT 1.2 /CUMM (1.2-3.4); ABSOLUTE MONOCYTE COUNT 0.6 /CUMM (0.10-0.60); BASOPHIL % 0.4 % (0.0-2.0); EOSINOPHIL % 2.1 % (0-5); GRANULOCYTE % 67.8 % (42.2-75.2); HEMATOCRIT 40.5 % (42-52); MEAN CORPUSCULAR HGB 29.1 PG (27.0-31.0); MEAN CORPUSCULAR HGB CONC 33.3 G/DL (33.0-37.0); MEAN CORPUSCULAR VOLUME 87.4 FL (80.0-94.0); MEAN PLATELET VOLUME 8.5 FL (7.4-10.4); PLATELET COUNT 180 /CUMM (130-400); RBC DISTRIBUTION WIDTH 15.6 % (11.5-14.5); RED BLOOD CELL CT 4.63 /CUMM (4.70-6.10)
--- NOTE | 2017-01-21 08:33 | Cons- Orthopedic ---
General Information and HPI Consulting Request Date of Consult: 01/21/17 Requested By: SANDY MANNING MD Reason for Consult: New back pain and chronic hip pain Source of Information: patient, family, old records Exam Limitations: no limitations History of Present Illness: This patient is a 41-year-old man who has been admitted for acute injury to his back. There was a fall that resulted in a fracture of his L4 vertebral body. Patient states that he was getting up from the wheelchair using crutches and fell with significant impacted back onto the chair. Patient is primarily wheelchair bound secondary to severe sequela of avascular necrosis of both hips. This condition most likely resulted from chronic use of prednisone/ corticosteroids for treatment of brain tumor. He is known to our office due to evaluation of his hips. He was originally planning for total hip arthroplasty but there were some medical issues that needed to be assessed by his primary physician. Intervention for his hip problem was postponed indefinitely due to these medical/social issues. He denies any lower extremity weakness following the fall. Allergies/Medications Allergies: Coded Allergies: cat pelt standardized allergenic ex (CAT PELT STANDARDIZED EXTRACT) (CATS ) Home Med List: Folic Acid 1 MG TABLET 1 TAB PO DAILY SUPPLEMENT (Reported) Furosemide (Unknown Strength) TABLET (Unknown Dose) UNKNOWN (Reported) Gabapentin 300 MG CAPSULE 1 CAP PO TID NERVE PAIN (Reported) Levetiracetam (Keppra) 750 MG TABLET 1 TAB PO BID SEIZURES (Reported) Lidocaine 5 % ADH..PATCH 1 PAT TOP DAILY PAIN (Reported) Metformin HCl 500 MG TABLET 1 TAB PO BID DM (Reported) Oxycodone HCl 10 MG TABLET 1 TAB PO TID PAIN (Reported) Trazodone HCl 100 MG TABLET 1 TAB PO QPM SLEEP (Reported) Warfarin Sodium (Coumadin) (Unknown Strength) TABLET (Unknown Dose) PO AD BLOOD THINNER (Reported) Past History Medical History Blood Transfusion Hx: Yes Neurological: seizure, BRAIN LESIONS EENT: NONE Cardiovascular: NONE Respiratory: PULM EMBOLUS Gastrointestinal: NONE Hepatic: NONE Renal: NONE Musculoskeletal: BACK PAIN, BILAT NECROCTI HIPS Psychiatric: ETOH USE Endocrine: NIDDM Blood Disorders: DVT Cancer(s): NONE ENTRY LEVEL SALES REPRESENTATIVE/Reproductive: NONE Surgical History Pertinent Surgical History: non-contributory Psychosocial History Services at Home: None Smoking Status: Never Smoked Exam & Diagnostic Data Vital Signs and I&O Vital Signs Date Time Temp Pulse Resp B/P Pulse O2 O2 Flow FiO2 Ox Delivery Rate 01/21 709 97.3 75 18 130/74 93 Room Air 01/20 2210 77 22 124/71 98 Room Air 01/20 2200 96.9 67 20 120/78 94 Room Air 01/20 2046 97.8 81 16 130/74 95 Room Air 01/20 1820 98.5 92 18 129/64 92 Room Air Intake & Output 01/21 0000 01/20 1600 01/20 0801/20 0000 Intake Total 120 Output Total 350 Balance 120 -350 Intake, IV 0 Intake, Oral 120 Number 0 Bowel Movements Output, Urine 350 Patient 210 lb Weight Physical Exam: Patient is alert and appropriate. He answers questions appropriately. Patient lies in a supine position in bed. There is discomfort with movement. Primarily complains of low back pain Calf is soft and nontender bilaterally Rotation of both hips causes discomfort and apprehension. No rotatory deformity. No leg length discrepancy. Normal strength and ankle dorsiflexion and plantarflexion. Quad and hamstring testing is limited by patient's back pain. No definite focal neurologic findings on exam. Imaging Results: I reviewed CT scan of the lumbar spine. It did show compression deformity of L4. No evidence of foraminal stenosis. No evidence of central canal stenosis Assessment/Plan Assessment/Plan #1. Acute L4 compression fracture secondary to fall and presumably patient's underlying pharmacologic osteopenia/ osteoporosis(previous corticosteroid use)- this injury will be treated conservatively. Initial bedrest for a couple of days is reasonable. DVT prophylaxis should be instituted. With mobilization, would benefit from a lumbosacral corset type brace for support. 2. Bilateral hip avascular necrosis-this has been a documented problem. At one time he was planning total hip arthroplasty but this needed to be postponed indefinitely due to medical/social issues. This has been previously discussed with his primary. No plan for acute hip arthroplasty at this time. This decision can be revisited in the future after healing of his compression fracture as well as resolution of previous concerns involving alcohol use Consult Acknowledgment - Thank you for your consult request. Attending Review Statement Attending Statement Attending Statement: examined this patient, discuss w/resident/PA/REGIONAL CLINICAL DIRECTOR, reviewed images
[2017-01-21 08:55] LABS: PT 28.5 SEC (9.4-12.5)
--- NOTE | 2017-01-21 13:20 | Admission Certification ---
Admission Certification Certification Statement - As attending physician, I certify that at the time of - admission, based on clinical presentation, severity of - symptoms, need for further diagnostic testing and - therapeutic interventions, and risk of adverse outcomes - without in-hospital treatment, in my clinical assessment, - this patient requires an acute hospital stay for a minimum - of two nights or longer. I have also considered psychsocial - factors such as support system, advanced age, financial - issues, cognitive issues, and failed out-patient treatments, - past re-admission history, safety of patient, and lack of - compliance as applicable. Specific rationale supporting this admission is: Recurrent falls and weakness severe back pain secondary to no compression fracture of the spine
--- NOTE | 2017-01-21 13:25 | PN- Att Addend ---
Attending Addendum Attending Brief Note 41-year-old white male who spent several weeks in a senior living for rehabilitation recently went back home, still on anticoagulation fluctuating INRs, had a fall at home and after also complaining of severe back pain despite being on home pain medications came to the ER and the workup showed an acute compression fracture of L4 patient was admitted for pain management and probably will need to return to the senior living but does not seem to be safe at home. Laboratory Tests 01/21 01/20 0636 2110 Chemistry Sodium (137 - 145 mmol/L) 137 139 Potassium (3.5 - 5.1 mmol/L) 4.0 4.2 Chloride (98 - 107 mmol/L) 102 102 Carbon Dioxide (22 - 30 mmol/L) 27 27 Anion Gap (5 - 16) 8 10 BUN (9 - 20 mg/dL) 8 L 7 L Creatinine (0.7 - 1.2 mg/dL) 0.6 L 0.6 L Estimated GFR (>60 ml/min) > 60 > 60 BUN/Creatinine Ratio (7 - 25 %) 13.3 11.7 Glucose (65 - 99 mg/dL) 90 Calcium (8.4 - 10.2 mg/dL) 9.5 Total Bilirubin (0.2 - 1.3 mg/dL) 1.0 AST (17 - 59 U/L) 24 ALT (21 - 72 U/L) 27 Alkaline Phosphatase (< 127 U/L) 141 H Total Protein (6.3 - 8.2 g/dL) 7.3 Albumin (3.5 - 5.0 g/dL) 3.9 Globulin (1.9 - 4.2 gm/dL) 3.4 Albumin/Globulin Ratio (1.1 - 2.2 %) 1.1 Coagulation PT (9.4 - 12.5 SEC) 28.5 H 37.6 H INR (0.90 - 1.17) 2.74 H 3.63 H APTT (25 - 37 SEC) 45 H Hematology CBC w Diff NO MAN DIFF REQ NO MAN DIFF REQ WBC (4.8 - 10.8 /CUMM) 6.0 6.5 RBC (4.70 - 6.10 /CUMM) 4.63 L 4.73 Hgb (14.0 - 18.0 G/DL) 13.5 L 13.6 L Hct (42 - 52 %) 40.5 L 41.0 L MCV (80.0 - 94.0 FL) 87.4 86.7 MCH (27.0 - 31.0 PG) 29.1 28.7 RDW (11.5 - 14.5 %) 15.6 H 15.2 H Plt Count (130 - 400 /CUMM) 180 183 MPV (7.4 - 10.4 FL) 8.5 8.0 Gran % (42.2 - 75.2 %) 67.8 64.4 Lymphocytes % (20.5 - 51.1 %) 19.4 L 23.1 Monocytes % (1.7 - 9.3 %) 10.3 H 9.9 H Eosinophils % (0 - 5 %) 2.1 1.7 Basophils % (0.0 - 2.0 %) 0.4 0.9 Absolute Granulocytes (1.4 - 6.5 /CUMM) 4.1 4.2 Absolute Lymphocytes (1.2 - 3.4 /CUMM) 1.2 1.5 Absolute Monocytes (0.10 - 0.60 /CUMM) 0.6 0.6 Absolute Eosinophils (0.0 - 0.7 /CUMM) 0.1 0.1 Absolute Basophils (0.0 - 0.2 /CUMM) 0 0.1 PUBS MCHC (33.0 - 37.0 G/DL) 33.3 33.1 Urines Urinalysis LIGHT H Urine Color (YEL,AMB,STR) YEL Urine Clarity (CLEAR) CLEAR Urine pH (5.0 - 8.0) 7.5 Ur Specific [place] (1.001 - 1.035) 1.020 Urine Protein (NEG,<30 MG/DL) TRACE H Urine Ketones (NEG) NEG Urine Nitrite (NEG) NEG Urine Bilirubin (NEG) NEG Urine Urobilinogen (0.1 - 1.0 EU/dl) 1.0 Ur Leukocyte Esterase (NEG) NEG Ur Microscopic SEDIMENT EXAMINED Urine RBC (0 - 5 /HPF) RARE Urine WBC (0 - 2 /HPF) RARE Ur Epithelial Cells (NONE,FEW) FEW Urine Bacteria (NEG/NONE) FEW H Urine Mucus (FEW,NONE) FEW Urine Hemoglobin (NEG) NEG Urine Glucose (N MG/DL) NEG
[2017-01-21 14:57] VITALS: BP 114/70
--- NOTE | 2017-01-21 19:24 | Discharge Summary ---
Visit Information Visit Dates Admission Date: 01/20/17 Discharge Date: 01/24/17 Hospital Course Course Attending Physician: SANDY MANNING MD Primary Care Physician: SANDY MANNING MD Consulting Request: Consulting Specialty: Orthopedics Hospital Course: Mr. 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 Patient reported a mechanical fall while ambulating with his crutches landing on his bottom with no preceding dizziness, LOC. Patient describes the pain as 10/ 10 worse with any movement with no relief on his current pain regimen of oxycodone. VS on admission: BP 129/64, HR 92, RR 18, SPO2 92% on RA, T 95 Physical exam: Alert, no acute distress. Extraocular muscles intact. RRR, normal S1/S2. Lungs CTA BL. Normal bowel sounds. Unable to assess straight leg test secondary to severe pain. Sensation intact to the distal lower extremities Pertinent labs: WBC 6.5, H&H 13.6/41.0, platelets 183, BUN/CR 7/0.6, alkaline phosphatase 141 INR: 3.[address]: There is an acute compression fracture of the L4 vertebral body with impaction of the upper endplate causing 10% vertebral body height loss centrally. There is no anterior wedging. No retropulsion of the posterior cortex. Grossly no evidence of canal or neuroforaminal compromise. The patient was admitted to the general medicine floor for management of foreign problems: 1. Acute compression fracture of L4 2. Pain management 3. Supratherapeutic INR 4. Diabetes 5. History of seizure disorder Hospital course: 1. Acute compression fracture of L4 * Consulted with the orthopedic team (Dr. 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 Initial plan was for total hip arthroplasty which unfortunately has not occurred at this point secondary to medical/social challenges. * Recommendations moving forward: Conservative management with bedrest for a few days. Patient would benefit from a lumbosacral corset brace for support * PT/OT during hospital stay 2. Pain management * Previous home dose of oxycodone 10 mg PO TID was adjusted in the setting of acute compression fracture. Additional Dilaudid 1 mg IV PRN that he did require approximately 3 times per day 3. Supratherapeutic INR * INR on admission was 3.63 for which we adjusted the Coumadin dose with target INR between 2 and 3 4. Diabetes * Started the patient on low-dose sliding scale with Accu-Cheks showing well- controlled blood sugars run hospital course 5. History of seizure disorder * We continued the patient on Keppra 750 mg PO BID 6. Neuropathy * Continue the patient on gabapentin 300 mg TID * Renal function remained normal Allergies: Coded Allergies: cat pelt standardized allergenic ex (CAT PELT STANDARDIZED EXTRACT) (CATS ) Disposition Summary Disposition Principal Diagnosis: Acute L4 compression fracture Additional Diagnosis: Pain management Supratherapeutic INR Diabetes History of seizure disorder Discharge Disposition: SNF Discharge Instructions General Discharge Information Code Status: Full Code Patient's Diet: Diabetic diet Patient's Activity: Bedrest for the first few days. lumbosacral corset brace for support Follow-Up Instructions/Appts: Please follow-up with her PCP within 1-2 weeks after discharge. Please follow-up with the orthopedic surgeon in the future for possible intervention for avascular necrosis of the hip Medications at Discharge Discharge Medications: Stop taking the following medications: Furosemide (Furosemide) (Unknown Strength) TABLET ORAL DAILY Qty = 14 Continue taking these medications: Oxycodone HCl (Oxycodone HCl) 10 MG TABLET 1 Tablet ORAL THREE TIMES DAILY as needed for Pain Qty = 90 Comments: Last Taken: 01/24/17 Time: 0550 AM Trazodone HCl (Trazodone HCl) 100 MG TABLET 1 Tablet ORAL Every night Qty = 30 Comments: Last Taken: 01/23/17 Time: 10:20 PM Warfarin Sodium (Coumadin) (Unknown Strength) TABLET 2.5 Milligram ORAL 5 PM Qty = 30 Comments: Last Taken: 01/23/17 Time: 6:18 PM Metformin HCl (Metformin HCl) 500 MG TABLET 1 Tablet ORAL TWICE DAILY Qty = 60 Comments: NOT GIVEN IN HOSPITAL ON NOVOLOG SS- HAD NOT RECIEVED ANY UNITS THIS VISIT PSS Levetiracetam (Keppra) 750 MG TABLET 1 Tablet ORAL TWICE DAILY Qty = 60 Comments: Last Taken: 01/24/17 Time: 0900 AM Folic Acid (Folic Acid) 1 MG TABLET 1 Tablet ORAL DAILY Qty = 30 Comments: NOT GIVEN IN HOSPITAL Gabapentin (Gabapentin) 300 MG CAPSULE 1 Capsule ORAL THREE TIMES DAILY Qty = 90 Comments: Last Taken: 01/24/17 Time: 0900 AM Lidocaine (Lidocaine) 5 % ADH..PATCH 1 Patch On the skin DAILY Qty = 30 Comments: NOT GIVEN IN HOSPITAL Start taking the following new medications: Oxycodone HCl/Acetaminophen (Percocet 5-325 MG Tablet) 5 MG-325 MG TABLET 1 Tablet ORAL EVERY 4-6 HOURS as needed for PAIN SCALE 7-10 (SEVERE) Qty = 20 No Refills Comments: Last Taken: 01/24/17 Time: 09:10 AM Docusate Sodium (Colace) 100 MG CAPSULE 1 Capsule ORAL DAILY as needed for CONSTIPATION Qty = 30 No Refills Comments: Last Taken: 01/24/17 Time: 09:00 AM Copies To: SHIRIN DAVIS,MICHAEL Reeder; CHITO DAVIS,HARRIS; SANDY MANNING MD
[2017-01-21 22:29] VITALS: BP 122/82
--- NOTE | 2017-01-22 07:00 | PN- Housestaff ---
Subjective Follow-up For: back pain, compression fx lumbosacral spine Hx of PE on coumadin Subjective: I saw and examined the patient at bedside in the a.m., patient is alert awake and oriented. Does not report any pain in states that his pain has been well controlled with medications. Patient has been able to walk to the bathroom using a walker. However he feels pain when he does weightbearing on the hips. He has been using the lumbosacral brace when sitting and walking. Patient reports that he has not been drinking alcohol since 8 months ago. Review of Systems Constitutional: Denies: chills, fever, weakness. EENTM: Reports: no symptoms. Cardiovascular: Denies: chest pain, palpitations. Respiratory: Denies: cough, short of breath. Gastrointestinal: Denies: abdominal pain, changes in stool. Genitourinary: Reports: no symptoms. Musculoskeletal: Reports: back pain. Skin: Reports: no symptoms. Neurological/Psychological: Reports: no symptoms. Hematologic/Endocrine: Reports: no symptoms. Objective Last 24 Hrs of Vital Signs/I&O Vital Signs Date Time Temp Pulse Resp B/P Pulse O2 O2 Flow FiO2 Ox Delivery Rate 01/22 733 98.6 61 20 102/70 97 01/21 2229 98.2 84 20 122/82 96 01/21 1457 98.2 86 20 114/70 94 Room Air Intake & Output 01/22 1600 01/22 0800 01/22 0000 Intake Total 100 200 Output Total 350 300 600 Balance -350 -200 -400 Intake, Oral 100 200 Output, Urine 350 300 600 Physical Exam General Appearance: Alert, Oriented X3, Cooperative, No Acute Distress Skin: No Significant Lesion HEENT: Atraumatic, EOMI Neck: Supple Cardiovascular: Normal S1, Normal S2, No Murmurs Lungs: Clear to Auscultation, Normal Air Movement Abdomen: Soft, No Tenderness Neurological: Normal Speech, Normal Tone, 4+/5 forces in the lower extremities, 5/5 which is on the upper extremities. Extremities: No Edema, Normal Pulses Vascular: Pulses Symmetrical Current Medications: Current Medications Sig/Diane Start time Last Medication Dose Route Stop Time Status Admin Enoxaparin Sodium 40 MG DAILY 01/21 1156 DC SC Enoxaparin Sodium 40 MG DAILY 01/21 1000 CAN SC Gabapentin 300 MG TID 01/20 2217 AC 01/21 PO 2127 Hydromorphone HCl 1 MG Q6P PRN 01/21 1200 AC 01/22 IV 0314 Hydromorphone HCl 1 MG ONCE ONE 01/21 1145 DC 01/21 IV 01/21 1146 1237 Hydromorphone HCl 2 MG Q6P PRN 01/21 1145 CAN PO Ibuprofen 600 MG Q6P PRN 01/20 2215 AC PO Insulin Aspart 0 TIDAC 01/21 0800 AC SC Levetiracetam 750 MG BID 01/20 2245 AC 01/21 PO 2127 Morphine Sulfate 4 MG Q4P PRN 01/20 2215 DC 01/21 IV 0903 Oxycodone HCl 10 MG Q4-6 PRN PRN 01/20 2215 AC 01/22 PO 0712 Patient Medication 1 ED .STK-MED ONE 01/21 1349 DC Teaching ED 01/21 1350 Trazodone HCl 100 MG QPM 01/21 2200 AC 01/21 PO 2127 Warfarin Sodium 2 MG COUMADIN 1700 ONE 01/21 1700 DC 01/21 PO 01/21 1701 1650 Last 24 Hrs of Lab/Osorio Results Last 24 Hrs of Labs/Mics: Laboratory Tests 01/22/17 0646: PT Pending, INR Pending, CBC w Diff Pending, WBC Pending, RBC Pending, Hgb Pending, Hct Pending, MCV Pending, MCH Pending, RDW Pending, Plt Count Pending, MPV Pending, PUBS MCHC Pending Assessment/Plan Assessment: Patient is a 41-year-old woman with a past medical history significant for 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 Problem list and plan: Acute compression fracture of the L4 vertebral body * Obtained orthopedic consult , followed recs, patient is using the lumbosacral corset type brace * Moderate to severe pain control with IV dilaudid and oxycodone * PT/OT consult placed, will work further after immobilizing of the lumbar spine with the brace * Patient will be evaluated for possible rehabilitation History of diabetes mellitus with peripheral neuropathy Sugars have been in the range of 70 to 100 * Held metformin * Maintain finger sugar controlled with NovoLog sliding scale * Accu-Cheks. * Continue home dose of gabapentin History of pulmonary embolism Patient has been taking coumadin 2.5 mg most recently (was previously on a combination of 2.5 and 4). He tool 2.5 mg for 2 consecutive days before presentation and came with INR of 3.63 * INR today is 2.25 * will give 2 mg coumadin today, check INr again tomorrow History of anxiety with insomnia * Continue home dose of trazodone Regular diet Moderate to severe pain control with IV morphine and oxycodone DVT prophylaxis coumadin (home med) Full code Problem List: 1. History of pulmonary embolism 2. Gait instability 3. Intractable back pain 4. Lumbar compression fracture 5. Seizure 6. Hyperlipidemia Pain Ratin Pain Location: Currently no pain, patient has back pain Pain Goal: Pain 4 or less Pain Plan: Mild, moderate and severe pain pathways. Tomorrow's Labs & Rationales: INR (patient is on Coumadin) Consulting Request: Consulting Specialty: Orthopedics
[2017-01-22 07:33] VITALS: BP 102/70
[2017-01-22 08:24] LABS: ABSOLUTE BASOPHIL COUNT 0 /CUMM (0.0-0.2); ABSOLUTE EOSINOPHIL COUNT 0.1 /CUMM (0.0-0.7); ABSOLUTE GRANULOCYTE CT 3.5 /CUMM (1.4-6.5); ABSOLUTE LYMPH COUNT 1.4 /CUMM (1.2-3.4); ABSOLUTE MONOCYTE COUNT 0.6 /CUMM (0.10-0.60); BASOPHIL % 0.6 % (0.0-2.0); EOSINOPHIL % 2.5 % (0-5); GRANULOCYTE % 62.3 % (42.2-75.2); HEMATOCRIT 39.9 % (42-52); MEAN CORPUSCULAR HGB 28.9 PG (27.0-31.0); MEAN CORPUSCULAR HGB CONC 32.9 G/DL (33.0-37.0); MEAN CORPUSCULAR VOLUME 87.8 FL (80.0-94.0); MEAN PLATELET VOLUME 8.4 FL (7.4-10.4); PLATELET COUNT 188 /CUMM (130-400); RBC DISTRIBUTION WIDTH 15.8 % (11.5-14.5); RED BLOOD CELL CT 4.55 /CUMM (4.70-6.10); WHITE BLOOD CELL COUNT 5.6 /CUMM (4.8-10.8)
[2017-01-22 08:30] LABS: PT 23.4 SEC (9.4-12.5)
--- NOTE | 2017-01-22 09:36 | PN- Att Addend ---
Attending Addendum Attending Brief Note I saw and examined the patient at bedside in the a.m., patient is alert awake and oriented. Does not report any pain in states that his pain has been well controlled with medications. Patient has been able to walk to the bathroom using a walker. However he feels pain when he does weightbearing on the hips. He has been using the lumbosacral brace when sitting and walking. Patient reports that he has not been drinking alcohol since 8 months ago. Review of Systems Constitutional: Denies: chills, fever, weakness. EENTM: Reports: no symptoms. Cardiovascular: Denies: chest pain, palpitations. Respiratory: Denies: cough, short of breath. Gastrointestinal: Denies: abdominal pain, changes in stool. Genitourinary: Reports: no symptoms. Musculoskeletal: Reports: back pain. Skin: Reports: no symptoms. Neurological/Psychological: Reports: no symptoms. Hematologic/Endocrine: Reports: no symptoms. Physical Exam General Appearance: Alert, Oriented X3, Cooperative, No Acute Distress Skin: No Significant Lesion HEENT: Atraumatic, EOMI Neck: Supple Cardiovascular: Normal S1, Normal S2, No Murmurs Lungs: Clear to Auscultation, Normal Air Movement Abdomen: Soft, No Tenderness Neurological: Normal Speech, Normal Tone, 4+/5 forces in the lower extremities, 5/5 which is on the upper extremities. Extremities: No Edema, Normal Pulses Vascular: Pulses Symmetrical Intake & Output 01/22 1600 01/22 0800 01/22 0000 Intake Total 100 200 Output Total 350 300 600 Balance -350 -200 -400 Intake, Oral 100 200 Output, Urine 350 300 600 Current Medications Sig/Diane Start time Last Medication Dose Route Stop Time Status Admin Enoxaparin Sodium 40 MG DAILY 01/21 1156 DC SC Enoxaparin Sodium 40 MG DAILY 01/21 1000 CAN SC Gabapentin 300 MG TID 01/20 2217 AC 01/21 PO 2127 Hydromorphone HCl 1 MG Q6P PRN 01/21 1200 AC 01/22 IV 0314 Hydromorphone HCl 1 MG ONCE ONE 01/21 1145 DC 01/21 IV 01/21 1146 1237 Hydromorphone HCl 2 MG Q6P PRN 01/21 1145 CAN PO Ibuprofen 600 MG Q6P PRN 01/20 2215 AC PO Insulin Aspart 0 TIDAC 01/21 0800 AC SC Levetiracetam 750 MG BID 01/20 2245 AC 01/21 PO 2127 Morphine Sulfate 4 MG Q4P PRN 01/20 221 DC 01/21 IV 0903 Oxycodone HCl 10 MG Q4-6 PRN PRN 01/20 2215 AC 01/22 PO 0712 Patient Medication 1 ED .STK-MED ONE 01/21 1349 DC Teaching ED 01/21 1350 Trazodone HCl 100 MG QPM 01/21 2200 AC 01/21 PO 2127 Warfarin Sodium 2 MG COUMADIN 1700 ONE 01/21 1700 DC 01/21 PO 01/21 1701 1650 Laboratory Tests 01/22 01/21 0646 0636 Chemistry Sodium (137 - 145 mmol/L) 137 Potassium (3.5 - 5.1 mmol/L) 4.0 Chloride (98 - 107 mmol/L) 102 Carbon Dioxide (22 - 30 mmol/L) 27 Anion Gap (5 - 16) 8 BUN (9 - 20 mg/dL) 8 L Creatinine (0.7 - 1.2 mg/dL) 0.6 L Estimated GFR (>60 ml/min) > 60 BUN/Creatinine Ratio (7 - 25 %) 13.3 Calcium (8.4 - 10.2 mg/dL) 9.7 Coagulation PT (9.4 - 12.5 SEC) 23.4 H 28.5 H INR (0.90 - 1.17) 2.25 H 2.74 H Hematology CBC w Diff NO MAN DIFF REQ NO MAN DIFF REQ WBC (4.8 - 10.8 /CUMM) 5.6 6.0 RBC (4.70 - 6.10 /CUMM) 4.55 L 4.63 L Hgb (14.0 - 18.0 G/DL) 13.1 L 13.5 L Hct (42 - 52 %) 39.9 L 40.5 L MCV (80.0 - 94.0 FL) 87.8 87.4 MCH (27.0 - 31.0 PG) 28.9 29.1 RDW (11.5 - 14.5 %) 15.8 H 15.6 H Plt Count (130 - 400 /CUMM) 188 180 MPV (7.4 - 10.4 FL) 8.4 8.5 Gran % (42.2 - 75.2 %) 62.3 67.8 Lymphocytes % (20.5 - 51.1 %) 24.5 19.4 L Monocytes % (1.7 - 9.3 %) 10.1 H 10.3 H Eosinophils % (0 - 5 %) 2.5 2.1 Basophils % (0.0 - 2.0 %) 0.6 0.4 Absolute Granulocytes (1.4 - 6.5 /CUMM) 3.5 4.1 Absolute Lymphocytes (1.2 - 3.4 /CUMM) 1.4 1.2 Absolute Monocytes (0.10 - 0.60 /CUMM) 0.6 0.6 Absolute Eosinophils (0.0 - 0.7 /CUMM) 0.1 0.1 Absolute Basophils (0.0 - 0.2 /CUMM) 0 0 PUBS MCHC (33.0 - 37.0 G/DL) 32.9 L 33.3 03/07 2110 Chemistry Sodium (137 - 145 mmol/L) 139 Potassium (3.5 - 5.1 mmol/L) 4.2 Chloride (98 - 107 mmol/L) 102 Carbon Dioxide (22 - 30 mmol/L) 27 Anion Gap (5 - 16) 10 BUN (9 - 20 mg/dL) 7 L Creatinine (0.7 - 1.2 mg/dL) 0.6 L Estimated GFR (>60 ml/min) > 60 BUN/Creatinine Ratio (7 - 25 %) 11.7 Glucose (65 - 99 mg/dL) 90 Calcium (8.4 - 10.2 mg/dL) 9.5 Total Bilirubin (0.2 - 1.3 mg/dL) 1.0 AST (17 - 59 U/L) 24 ALT (21 - 72 U/L) 27 Alkaline Phosphatase (< 127 U/L) 141 H Total Protein (6.3 - 8.2 g/dL) 7.3 Albumin (3.5 - 5.0 g/dL) 3.9 Globulin (1.9 - 4.2 gm/dL) 3.4 Albumin/Globulin Ratio (1.1 - 2.2 %) 1.1 Coagulation PT (9.4 - 12.5 SEC) 37.6 H INR (0.90 - 1.17) 3.63 H APTT (25 - 37 SEC) 45 H Hematology CBC w Diff NO MAN DIFF REQ WBC (4.8 - 10.8 /CUMM) 6.5 RBC (4.70 - 6.10 /CUMM) 4.73 Hgb (14.0 - 18.0 G/DL) 13.6 L Hct (42 - 52 %) 41.0 L MCV (80.0 - 94.0 FL) 86.7 MCH (27.0 - 31.0 PG) 28.7 RDW (11.5 - 14.5 %) 15.2 H Plt Count (130 - 400 /CUMM) 183 MPV (7.4 - 10.4 FL) 8.0 Gran % (42.2 - 75.2 %) 64.4 Lymphocytes % (20.5 - 51.1 %) 23.1 Monocytes % (1.7 - 9.3 %) 9.9 H Eosinophils % (0 - 5 %) 1.7 Basophils % (0.0 - 2.0 %) 0.9 Absolute Granulocytes (1.4 - 6.5 /CUMM) 4.2 Absolute Lymphocytes (1.2 - 3.4 /CUMM) 1.5 Absolute Monocytes (0.10 - 0.60 /CUMM) 0.6 Absolute Eosinophils (0.0 - 0.7 /CUMM) 0.1 Absolute Basophils (0.0 - 0.2 /CUMM) 0.1 PUBS MCHC (33.0 - 37.0 G/DL) 33.1 Urines Urinalysis LIGHT H Urine Color (YEL,AMB,STR) YEL Urine Clarity (CLEAR) CLEAR Urine pH (5.0 - 8.0) 7.5 Ur Specific [place] (1.001 - 1.035) 1.020 Urine Protein (NEG,<30 MG/DL) TRACE H Urine Ketones (NEG) NEG Urine Nitrite (NEG) NEG Urine Bilirubin (NEG) NEG Urine Urobilinogen (0.1 - 1.0 EU/dl) 1.0 Ur Leukocyte Esterase (NEG) NEG Ur Microscopic SEDIMENT EXAMINED Urine RBC (0 - 5 /HPF) RARE Urine WBC (0 - 2 /HPF) RARE Ur Epithelial Cells (NONE,FEW) FEW Urine Bacteria (NEG/NONE) FEW H Urine Mucus (FEW,NONE) FEW Urine Hemoglobin (NEG) NEG Urine Glucose (N MG/DL) NEG Vital Signs Date Time Temp Pulse Resp B/P Pulse O2 O2 Flow FiO2 Ox Delivery Rate 01/22 0733 98.6 61 20 102/70 97 01/21 2229 98.2 84 20 122/82 96 01/21 1457 98.2 86 20 114/70 94 Room Air Patient is a 41-year-old woman with a past medical history significant for 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 Problem list and plan: Acute compression fracture of the L4 vertebral body * to rehab with po pain meds dc iv meds History of diabetes mellitus with peripheral neuropathy Sugars have been in the range of 70 to 100 * Accu-Cheks. * Continue home dose of gabapentin * May need metformin if sugars are high check hemoglobin azc * History of pulmonary embolism COnt warfarin History of anxiety with insomnia * Continue home dose of trazodone OK to dc
--- NOTE | 2017-01-22 09:51 | NUR ---
Physical Therapy: Pt's chart reviewed this morning for treatment. Ortho consult suggests bedrest for a few day. Will cx treatment today and follow up tomorrow as appropriate. Thank you.
[2017-01-22 14:32] VITALS: BP 112/77
[2017-01-22 22:26] VITALS: BP 118/62
--- NOTE | 2017-01-23 06:03 | Patient Discharge Instructions ---
Discharge Instructions General Discharge Information You were seen/treated for: L4 vertebral body fracture Watch for these problems: Numbness/weakness in the lower extremities. New onset bladder or bowel incontinence/retention Special Instructions: PLEASE CHECK BEP AND CBC IN 1 WEEK AND COPY PCP Please follow-up with your PCP within 1-2 weeks after discharge. Please contact the orthopedic doctor within 1 week after discharge for follow-up recommendations Diet Recommended Diet: Diabetic Activity Activity Self Limited: Yes Acute Coronary Syndrome Inclusion Criteria At DC or during hospital stay patient has or had the following: ACS DIAGNOSIS No Discharge Core Measures Meds if any: Prescribed or Continued at Discharge Meds if any: NOT Prescribed or Continued at Discharge Congestive Heart Failure Inclusion Criteria At DC or during hospital stay patient has or had the following: CHF DIAGNOSIS No Discharge Core Measures Meds if any: Prescribed or Continued at Discharge Meds if any: NOT Prescribed or Continued at Discharge Cerebrovascular accident Inclusion Criteria At DC or during hospital stay patient has or had the following: CVA/TIA Diagnosis No Discharge Core Measures Meds if any: Prescribed or Continued at Discharge Meds if any: NOT Prescribed or Continued at Discharge Venous thromboembolism Inclusion Criteria VTE Diagnosis No VTE Type NONE VTE Confirmed by (Test) NONE Discharge Core Measures - Per Current guidelines, there needs to be overlap - treatment for the first 5 days of Warfarin therapy. - If discharged on Warfarin prior to 5 days of - overlap therapy, the patient will need to be - assessed for post discharge needs including - *Post discharge parental anticoagulation - *Warfarin and/or parental anticoagulation education - *Follow up date to check INR post discharge At least 5 days overlap therapy as Inpatient No Meds if any: Prescribed or Continued at Discharge Note: Overlap Therapy is Warfarin and Anticoagulant Meds if any: NOT Prescribed or Continued at Discharge
[2017-01-23 06:13] VITALS: BP 118/76
--- NOTE | 2017-01-23 07:25 | PN- Housestaff ---
Subjective Follow-up For: back pain Subjective: I saw and examined the patient at bedside, he is laert and oriented in no distress, reports back pain is better controlled with the lumbosacral brace while sitting and walking. Has no complaints, will go to the rehab facility later today. Review of Systems Constitutional: Reports: no symptoms. EENTM: Reports: no symptoms. Cardiovascular: Reports: no symptoms. Respiratory: Reports: no symptoms. Gastrointestinal: Reports: no symptoms. Genitourinary: Reports: no symptoms. Musculoskeletal: Reports: back pain, joint pain. Skin: Reports: no symptoms. Neurological/Psychological: Reports: no symptoms. Hematologic/Endocrine: Reports: no symptoms. Objective Last 24 Hrs of Vital Signs/I&O Vital Signs Date Time Temp Pulse Resp B/P Pulse O2 O2 Flow FiO2 Ox Delivery Rate 01/23 1413 98.3 78 20 118/80 96 Room Air 01/23 0613 98.7 60 20 118/76 97 Room Air 01/22 2226 98.7 70 20 118/62 96 Room Air Intake & Output 01/23 1600 01/23 0800 01/23 0000 Intake Total 900 120 240 Output Total 200 400 700 Balance 700 -280 -460 Intake, Oral 900 120 240 Number 0 0 Bowel Movements Output, Urine 200 400 700 Physical Exam General Appearance: Alert, Oriented X3, Cooperative, No Acute Distress Skin: No Significant Lesion HEENT: Atraumatic, EOMI Neck: Supple, No JVD Cardiovascular: Regular Rate, Normal S1, Normal S2, No Murmurs Lungs: Normal Air Movement Abdomen: Soft, No Tenderness Neurological: Normal Speech, Normal Tone Extremities: No Edema, Normal Pulses, No Tenderness/Swelling Current Medications: Current Medications Sig/Diane Start time Last Medication Dose Route Stop Time Status Admin Docusate Sodium 100 MG DAILY 01/23 1000 AC 01/23 PO 1024 Gabapentin 300 MG TID 01/20 2217 AC 01/23 PO 1605 Hydromorphone HCl 1 MG Q6P PRN 01/21 1200 DC 01/23 IV 0003 Ibuprofen 600 MG .STK-MED ONE 01/22 204 DC PO 01/22 204 Ibuprofen 600 MG Q6P PRN 01/20 2215 AC 01/23 PO 1245 Insulin Aspart 0 TIDAC 01/21 0800 AC SC Levetiracetam 750 MG BID 01/20 2245 AC 01/23 PO 1024 Oxycodone HCl 10 MG Q4-6 PRN PRN 01/20 2215 AC 01/23 PO 1450 Oxycodone/ 1 TAB Q6P PRN 01/23 0615 AC 01/23 Acetaminophen PO 0845 Patient Medication 1 ED .STK-MED ONE 01/23 1408 DC Teaching ED 01/23 1409 Polyethylene Glycol 17 GM DAILY 01/23 0745 AC 01/23 PO 1024 Senna 187 MG ONCE ONE 01/23 0745 DC 01/23 PO 01/23 0746 1024 Trazodone HCl 100 MG QPM 01/21 2200 AC 01/22 PO 2058 Warfarin Sodium 2.5 MG COUMADIN 1700 ONE 01/23 1700 DC PO 01/23 170 Warfarin Sodium 2 MG ONCE ONE 01/22 2030 DC 01/22 PO 01/22 Last 24 Hrs of Lab/Osorio Results Last 24 Hrs of Labs/Mics: Laboratory Tests 01/23/17 0634: PT 19.6 H, INR 1.88 H Assessment/Plan Assessment: Patient is a 41-year-old woman with a past medical history significant for 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 Problem list and plan: Acute compression fracture of the L4 vertebral body * Obtained orthopedic consult , followed recs, patient is using the lumbosacral corset type brace, has been using the brace and reports improvement of pain while sitting and walking with brace * Moderate to severe pain control with IV dilaudid and oxycodone * Patient will go to rehabilitation today (he will go back to [place]) History of diabetes mellitus with peripheral neuropathy BS 86 in am * Metformin is on hold will resume at discharge * Maintain finger sugar controlled with NovoLog sliding scale * Accu-Cheks. * Continue home dose of gabapentin History of pulmonary embolism Patient has been taking coumadin 2.5 mg most recently (was previously on a combination of 2.5 and 4). He tool 2.5 mg for 2 consecutive days before presentation and came with INR of 3.63 * INR today is 1.88 * will give 2.5 mg coumadin today, check INr again tomorrow History of anxiety with insomnia * Continue home dose of trazodone Regular diet Moderate to severe pain control with IV morphine and oxycodone DVT prophylaxis coumadin (home med) Full code Problem List: 1. Gait instability 2. Intractable back pain 3. Lumbar compression fracture Pain Ratin Pain Location: lower back Pain Goal: Pain 4 or less Pain Plan: mild and moderate and severe pain pathways Tomorrow's Labs & Rationales: none Consulting Request: Consulting Specialty: Orthopedics
[2017-01-23 08:19] LABS: PT 19.6 SEC (9.4-12.5)
--- NOTE | 2017-01-23 11:08 | PN- Att Addend ---
Attending Addendum Attending Brief Note The only issue today is constipation, has not moved his bowels otherwise no major changes his vital signs are stable, no changes on physical. After having a bowel movement start disposition plans to short-term rehabilitation again, see the discharge summary and C [facility] georges will follow the patient at the facility. Current Medications Sig/Diane Start time Last Medication Dose Route Stop Time Status Admin Docusate Sodium 100 MG DAILY 01/23 1000 AC 01/23 PO 1024 Gabapentin 300 MG TID 01/20 2217 AC 01/23 PO 1026 Hydromorphone HCl 1 MG Q6P PRN 01/21 1200 DC 01/23 IV 0003 Ibuprofen 600 MG .STK-MED ONE 01/22 2041 DC PO 01/22 204 Ibuprofen 600 MG Q6P PRN 01/20 2215 AC 01/22 PO 2045 Insulin Aspart 0 TIDAC 01/21 0800 AC SC Levetiracetam 750 MG BID 01/20 2245 AC 01/23 PO 1024 Oxycodone HCl 10 MG Q4-6 PRN PRN 01/20 2215 AC 01/23 PO 1048 Oxycodone/ 1 TAB Q6P PRN 01/23 0615 AC 01/23 Acetaminophen PO 0845 Polyethylene Glycol 17 GM DAILY 01/23 0745 AC 01/23 PO 1024 Senna 187 MG ONCE ONE 01/23 0745 DC 01/23 PO 01/23 0746 1024 Trazodone HCl 100 MG QPM 01/21 2200 AC 01/22 PO 205 Warfarin Sodium 2 MG ONCE ONE 01/22 2030 DC 01/22 PO 01/22 Laboratory Tests 01/23/17 0634: PT 19.6 H, INR 1.88 H 01/22/17 0646: PT 23.4 H, INR 2.25 H, CBC w Diff NO MAN DIFF REQ, RBC 4.55 L, MCV 87.8, MCH 28.9, RDW 15.8 H, MPV 8.4, Gran % 62.3, Lymphocytes % 24.5, Monocytes % 10.1 H , Eosinophils % 2.5, Basophils % 0.6, Absolute Granulocytes 3.5, Absolute Lymphocytes 1.4, Absolute Monocytes 0.6, Absolute Eosinophils 0.1, Absolute Basophils 0, PUBS MCHC 32.9 L Vital Signs Date Time Temp Pulse Resp B/P Pulse O2 O2 Flow FiO2 Ox Delivery Rate 01/23 613 98.7 60 20 118/76 97 Room Air
[2017-01-23] MEDS ORDERED: PERCOCET 5-3251 EACH PO (11:40)
[2017-01-23] MEDS ORDERED: COLACE100 M1 PO (11:41)
[2017-01-23 14:13] VITALS: BP 118/80
--- NOTE | 2017-01-23 17:00 | NUR ---
NURSING NOTE: PATIENT NEEDS TO HAVE BOWEL MOVEMENT BEFORE HE CAN BE DISCHARGED TO REHAB. PATIENT GIVEN MIRALAX, SENNA AND COLACE DURING AM SHIFT. PATIENT ALSO GIVEN PRUNE JUICE, COFFEE AND OFFERED A SUPPOSITORY WHICH THE PATIENT REFUSED. PATIENT ALSO ENCOURAGED TO SIT ON TOILET AND TRY TO GO, BUT PATIENT REFUSED AND STATED "IT WILL COME IN A FEW HOURS, ILL JUST WAIT IT OUT". WILL CONTINUE TO MONITOR.
[2017-01-23 22:55] VITALS: BP 104/72
[2017-01-24 06:45] VITALS: BP 112/82
--- NOTE | 2017-01-24 08:15 | PN- Housestaff ---
Subjective Follow-up For: back pain Constipation Subjective: Patient is feeling well, pain is controlled with medication. Patient had BM this morning. Patient will be discharged to [facility] this morning. Review of Systems Constitutional: Reports: see HPI. Objective Last 24 Hrs of Vital Signs/I&O Vital Signs Date Time Temp Pulse Resp B/P Pulse O2 O2 Flow FiO2 Ox Delivery Rate 01/24 0645 98.1 65 20 112/82 97 01/23 2255 98.1 62 20 104/72 95 Room Air 01/23 1413 98.3 78 20 118/80 96 Room Air Intake & Output 01/24 1600 01/24 0800 01/24 0000 Intake Total 240 480 Output Total 700 300 Balance -460 180 Intake, Oral 240 480 Output, Urine 700 300 Physical Exam General Appearance: Alert, Oriented X3, Cooperative, No Acute Distress Skin: No Rashes, No Breakdown, No Significant Lesion HEENT: Atraumatic, PERRLA, EOMI, Mucous Membr. 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 Problem list and plan: Acute compression fracture of the L4 vertebral body * Obtained orthopedic consult , followed recs, patient is using the lumbosacral corset type brace, has been using the brace and reports improvement of pain while sitting and walking with brace * Moderate to severe pain control with IV dilaudid and oxycodone * Patient will go to rehabilitation today (he will go back to [place]). Patient had bowel movement this morning History of diabetes mellitus with peripheral neuropathy BS 86 in am * Metformin is on hold will resume at discharge * Maintain finger sugar controlled with NovoLog sliding scale * Accu-Cheks. * Continue home dose of gabapentin History of pulmonary embolism Patient has been taking coumadin 2.5 mg most recently (was previously on a combination of 2.5 and 4). He tool 2.5 mg for 2 consecutive days before presentation and came with INR of 3.63 * INR today is 1.65 * will give 2.5 mg coumadin today History of anxiety with insomnia * Continue home dose of trazodone Regular diet Moderate to severe pain control with IV morphine and oxycodone DVT prophylaxis coumadin (home med) Full code Problem List: 1. Gait instability 2. Intractable back pain 3. Lumbar compression fracture Pain Ratin Pain Location: Back pain Pain Goal: Pain 4 or less Pain Plan: Severe pain pathway Tomorrow's Labs & Rationales: None Consulting Request: Consulting Specialty: Orthopedics
[2017-01-24 08:33] LABS: PT 17.2 SEC (9.4-12.5)
[2017-01-24 09:26] VITALS: BP 112/82
== END 2017-01-24 10:20 | DRG 543 ==
LOC: ENRESERVDT → ENRESERVTM → ERH 18:09 → ERHI 21:50 → ENPENDDIS 21:50 → 2NB 21:50 → DELPENDDIS 21:50 → 2NB 22:45
PROVIDERS: Internal Medicine; Ophthalmology; Physician Assistant; Student in an Organized Health Care Education/Training Program; ADMIT Internal Medicine
DX: M80.88XA Other osteoporosis with current pathological fracture, vertebra(e), initial encounter for fracture (principal); M87.851 Other osteonecrosis, right femur; E11.42 Type 2 diabetes mellitus with diabetic polyneuropathy; R56.9 Unspecified convulsions; M87.852 Other osteonecrosis, left femur; F32.9 Major depressive disorder, single episode, unspecified; F41.9 Anxiety disorder, unspecified; Z79.01 Long term (current) use of anticoagulants; Z86.711 Personal history of pulmonary embolism; Z86.718 Personal history of other venous thrombosis and embolism; E78.5 Hyperlipidemia, unspecified; Z79.84 Long term (current) use of oral hypoglycemic drugs
CPT/HCPCS: 2NBSP; 36415; 81001; 82436; 96374; 96375; 97116-GO; 97162-GP; 97530-GO; J1170; J1650; J1953; J3360

== ENCOUNTER 2017-03-23 13:27 | Emergency (ER) | payer OTHER, MEDICARE ==
[~2017-03-23 13:27] MED LIST changes: +COLACE100 M1 PO; +COUMADIN2.5 M1 PO; +FOLIC ACID1 M1 PO; +FUROSEMIDE40 M1 PO; +GABAPENTIN300 M2 PO; +KEPPRA750 M1 PO; +LIDOCAINE1 EACH TOP; +METFORMIN HCL500 M3 PO; +OXYCODONE HCL10 M2 PO; +PERCOCET 5-3251 EACH PO; +TRAZODONE HCL100 M1 PO
--- NOTE | 2017-03-23 16:13 | ED GENERAL ADULT ---
History of Present Illness General Chief Complaint: General Adult Stated Complaint: PAIN MEDS Source: patient, family, old records Exam Limitations: poor historian Vital Signs & Intake/Output Vital Signs & Intake/Output Vital Signs Date Time Temp Pulse Resp B/P B/P Pulse O2 O2 Flow FiO2 Mean Ox Delivery Rate 03/23 1827 99.2 78 21 128/80 100 Room Air 03/23 1636 99 Room Air 03/23 1335 99.0 88 20 122/84 99 Room Air Allergies Coded Allergies: cat dander (CANT BREATHE PER PT 03/23/17) Reconcile Medications Docusate Sodium (Colace) 100 MG CAPSULE 1 CAP PO DAILY PRN CONSTIPATION Folic Acid 1 MG TABLET 1 TAB PO DAILY SUPPLEMENT (Reported) Gabapentin 300 MG CAPSULE 1 CAP PO TID NERVE PAIN (Reported) Levetiracetam (Keppra) 750 MG TABLET 1 TAB PO BID SEIZURES (Reported) Lidocaine 5 % ADH..PATCH 1 PAT TOP DAILY PAIN (Reported) Metformin HCl 500 MG TABLET 1 TAB PO BID DM (Reported) Ondansetron (Zofran Odt) 4 MG TAB.RAPDIS 1 TAB SL TID PRN nausea Oxycodone HCl 10 MG TABLET 1 TAB PO TID PRN Pain (Reported) Oxycodone HCl 10 MG TABLET 1 TAB PO TID PRN pain Trazodone HCl 100 MG TABLET 1 TAB PO QPM SLEEP (Reported) Warfarin Sodium (Coumadin) (Unknown Strength) TABLET 2.5 MG PO 1700 BLOOD THINNER (Reported) Triage Note: PT BIBA FOR CHRONIC LOW BACK PAIN. PT STATES HE NEEDS PAIN MEDICATION BECAUSE HIS BACK IS BOTHERING HIM. PT DENIES ANY RECENT INJURY OR TRAUMA TO BACK. PT STATES HE HAS HAD ONGOING BACK ISSUES FOR YEARS. PT STATES TODAY HE FEELS MORE TIRED THEN NORMAL. PT ALSO C/O OF NAUSEA Triage Nurses Notes Reviewed? yes HPI: Patient is a 42-year-old male presents complaining of severe bilateral hip pain and low back pain. Pain severe over the past 3-4 days. Patient ran out of his oxycodone on March 19. Patient had an appointment today with his primary care doctor but was not able to make it to the appointment secondary to pain and presents to the emergency department for further evaluation. Vomiting intermittently for a couple of weeks, worse over the past 2-3 days. Patient's mother reports that patient is often noncompliant with treatment. Patient had his INR checked yesterday and it was 2.5. Blood sugar this morning was 88. Positive diaphoresis. (RAFI MICHELLE) Past History Travel History Traveled to [place] past 21 day No Medical History Any Pertinent Medical History? see below for history Neurological: seizure, BRAIN LESIONS EENT: NONE Cardiovascular: NONE Respiratory: PULM EMBOLUS Gastrointestinal: NONE Hepatic: NONE Renal: NONE Musculoskeletal: BACK PAIN, BILAT NECROCTI HIPS Psychiatric: ETOH USE Endocrine: NIDDM Blood Disorders: DVT Cancer(s): NONE FIELD ARTILLERY OFFICER/Reproductive: NONE History of MRSA: No History of VRE: No History of CDIFF: No Influenza Vaccine: 08/16/16 Surgical History Surgical History: non-contributory Psychosocial History Who do you live with Family Services at Home None What is your primary language Greenlandic Tobacco Use: Current Daily Use Daily Tobacco Use Amount/Type: => 5 Cigarettes daily ETOH Use: heavy use Family History Hx Contributory? No (RAFI MICHELLE) Review of Systems Review of Systems Constitutional: Reports: chills, diaphoresis, malaise, weakness. Denies: fever. EENTM: Reports: no symptoms. Respiratory: Denies: cough, short of breath. Cardiovascular: Denies: chest pain. GI: Reports: nausea, vomiting. Denies: abdominal pain. Genitourinary: Reports: no symptoms. Musculoskeletal: Reports: back pain. Skin: Reports: no symptoms. Neurological/Psychological: Reports: no symptoms. Hematologic/Endocrine: Reports: no symptoms. Immunologic/Allergic: Reports: no symptoms. (RAFI MICHELLE) Physical Exam Physical Exam General Appearance: alert, awake Head: atraumatic, normal appearance Eyes: Bilateral: normal appearance, PERRL, EOMI. Ears, Nose, Throat: normal pharynx, normal ENT inspection, hearing grossly normal Neck: normal inspection, supple, full range of motion, no midline tenderness Respiratory: normal breath sounds, chest non-tender, no respiratory distress, lungs clear Cardiovascular: regular rate/rhythm Peripheral Pulses: 2+ dorsalis pedis (R), 2+ dorsalis pedis (L) Gastrointestinal: soft, non-tender Back: normal inspection, normal range of motion, diffuse lumbar tenderness. no significant midline tenderness Extremities: 1+ bilateral lower extremity edema Neurologic/Psych: awake, alert, oriented x 3 Skin: diaphoresis Lymphatic: no anterior cervical donna Core Measures ACS in differential dx? No CVA/TIA Diagnosis: No Severe Sepsis Present: No Septic Shock Present: No (TALITA MICHAEL,RAFI) Progress Differential Diagnoses I considered the following diagnoses in my evaluation of the patient: Opiate withdrawal, alcohol intoxication, alcohol withdrawal, electrolyte abnormality, sepsis Plan of Care: Orders Procedure Date/time Status CIWA 03/23 175 Active URINE DRUG SCREEN FOR ER ONLY 03/23 1623 Complete URINALYSIS 03/23 1623 Complete PROTHROMBIN TIME 03/23 1623 Complete ETHANOL 03/23 1623 Complete COMPREHENSIVE METABOLIC PANEL 03/23 1623 Complete CBC WITHOUT DIFFERENTIAL 03/23 1623 Complete Laboratory Tests 03/23/17 1814: Urine Opiates Screen > 4000.00 H, Methadone Screen < 40, Barbiturate Screen < 60, Ur Phencyclidine Scrn < 6.00, Amphetamines Screen < 100, U Benzodiazepines Scrn < 85, Urine Cocaine Screen < 50, Urine Cannabis Screen 33.80, Urinalysis LIGHT H, Urine Color NIALL, Urine Clarity HAZY H, Urine pH 6.0, Ur Specific [place] 1.025, Urine Protein 100 H, Urine Ketones >=80, Urine Nitrite NEG, Urine Bilirubin NEG@ICTO, Urine Urobilinogen 4.0 H, Ur Leukocyte Esterase NEG, Ur Microscopic SEDIMENT EXAMINED, Urine RBC 3-5, Urine WBC RARE, Ur Epithelial Cells FEW, Urine Bacteria FEW H, Urine Mucus PACKD H, Urine Hemoglobin SMALL H, Urine Glucose NEG 03/23/17 1703: Anion Gap 16, Estimated GFR > 60, BUN/Creatinine Ratio 10.0, Glucose 77, Calcium 8.8, Total Bilirubin 1.5 H, AST 269 H, ALT 156 H, Alkaline Phosphatase 148 H , Total Protein 7.6, Albumin 4.5, Globulin 3.1, Albumin/Globulin Ratio 1.5, PT 28.7 H, INR 2.76 H, CBC w Diff NO MAN DIFF REQ, RBC 4.57 L, MCV 93.8, MCH 31.8 H, RDW 21.2 H, MPV 7.0 L, Gran % 73.1, Lymphocytes % 17.3 L, Monocytes % 8.0, Eosinophils % 0.8, Basophils % 0.8, Absolute Granulocytes 2.9, Absolute Lymphocytes 0.7 L, Absolute Monocytes 0.3, Absolute Eosinophils 0, Absolute Basophils 0, PUBS MCHC 33.9, Serum Alcohol 87.0 1800: Discussed with Dr. Cornejo: prescribe 1-2 days of patient's pain medication, and patient should follow up with him in the office. (RAFI MICHELLE) Initial ED EKG: none (RAFI MICHELLE) Departure Departure Time of Disposition: 1821 Disposition: HOME OR SELF CARE Condition: Stable Clinical Impression Primary Impression: Opiate withdrawal Secondary Impressions: Alcohol use disorder Referrals: SANDY CORNEJO MD (PCP/Family) Additional Instructions: Follow up with Dr. Cornejo this week for further evaluation and management. Call in the morning for appointment. Do not mix alcohol with your pain medication. Departure Forms: Customer Survey General Discharge Information Prescriptions: Current Visit Scripts Oxycodone HCl 1 TAB PO TID PRN pain #6 TAB Ondansetron (Zofran Odt) 1 TAB SL TID PRN nausea #10 TAB (RAFI MICHELLE) PA/UI APPLICATION DEVELOPER Co-Sign Statement Statement: ED Attending supervision documentation- [] I saw and evaluated the patient. I have also reviewed all the pertinent lab results and diagnostic results. I agree with the findings and the plan of care as documented in the PA's/UI APPLICATION DEVELOPER's documentation. [X] I have reviewed the ED Record and agree with the PA's/UI APPLICATION DEVELOPER's documentation. [] Additions or exceptions (if any) to the PAs/UI APPLICATION DEVELOPER's note and plan are summarized below: [] (FRANCES DAVIS,GUZMAN) Critical Care Note Critical Care Note Critical Care Time: non-applicable (RAFI MICHELLE)
[2017-03-23 17:11] LABS: ABSOLUTE BASOPHIL COUNT 0 /CUMM (0.0-0.2); ABSOLUTE EOSINOPHIL COUNT 0 /CUMM (0.0-0.7); ABSOLUTE GRANULOCYTE CT 2.9 /CUMM (1.4-6.5); ABSOLUTE LYMPH COUNT 0.7 /CUMM (1.2-3.4); ABSOLUTE MONOCYTE COUNT 0.3 /CUMM (0.10-0.60); BASOPHIL % 0.8 % (0.0-2.0); EOSINOPHIL % 0.8 % (0-5); GRANULOCYTE % 73.1 % (42.2-75.2); HEMATOCRIT 42.8 % (42-52); MEAN CORPUSCULAR HGB 31.8 PG (27.0-31.0); MEAN CORPUSCULAR HGB CONC 33.9 G/DL (33.0-37.0); MEAN CORPUSCULAR VOLUME 93.8 FL (80.0-94.0); PLATELET COUNT 135 /CUMM (130-400); RBC DISTRIBUTION WIDTH 21.2 % (11.5-14.5); RED BLOOD CELL CT 4.57 /CUMM (4.70-6.10); WHITE BLOOD CELL COUNT 3.9 /CUMM (4.8-10.8)
[2017-03-23 17:18] LABS: PT 28.7 SEC (9.4-12.5)
[2017-03-23] MEDS ORDERED: ZOFRAN ODT4 M1 SL (18:23)
[2017-03-23] MEDS ORDERED: OXYCODONE HCL10 M2 PO (18:23)
[2017-03-23 18:27] VITALS: BP 128/80
== END 2017-03-23 18:38 ==
LOC: ERH 13:27
PROVIDERS: Physician Assistant
DX: F11.23 Opioid dependence with withdrawal (principal); F10.10 Alcohol abuse, uncomplicated; Z79.01 Long term (current) use of anticoagulants; F17.210 Nicotine dependence, cigarettes, uncomplicated; Z86.718 Personal history of other venous thrombosis and embolism; E11.9 Type 2 diabetes mellitus without complications; Z91.19 Patient's noncompliance with other medical treatment and regimen
CPT/HCPCS: 80307; 81001; 96374; 96375; G0480; J2405; J7040

== ENCOUNTER 2017-04-29 06:31 | Inpatient (IN) | payer OTHER, MEDICARE ==
[~2017-04-29] VITALS: Ht 188 cm; Wt 99.8 kg
[2017-04-29] VITALS (17 sets, daily range): BP systolic 102–143; BP diastolic 63–97
[~2017-04-29 06:31] MED LIST changes: +ZOFRAN ODT4 M1 SL
--- NOTE | 2017-04-29 06:35 | NUR ---
AT BEDSIDE TO QUINTIN PT
--- NOTE | 2017-04-29 06:41 | ED GENERAL ADULT ---
History of Present Illness General Chief Complaint: General Adult Stated Complaint: BIBA ? ANXIETY, GENEREL WEAKNESS Source: patient, old records Exam Limitations: no limitations Vital Signs & Intake/Output Vital Signs & Intake/Output Vital Signs Date Time Temp Pulse Resp B/P B/P Pulse O2 O2 Flow FiO2 Mean Ox Delivery Rate 04/29 0823 106 16 143/93 100 Nasal 2.0L Cannula 04/29 715 98.0 107 15 136/79 04/29 0713 107 15 136/79 98 Room Air 04/29 0644 Room Air 04/29 0633 97.5 127 22 136/91 98 Room Air Allergies Coded Allergies: cat dander (CANT BREATHE PER PT 03/23/17) Reconcile Medications Docusate Sodium (Colace) 100 MG CAPSULE 1 CAP PO DAILY PRN CONSTIPATION Folic Acid 1 MG TABLET 1 TAB PO DAILY SUPPLEMENT (Reported) Gabapentin 300 MG CAPSULE 1 CAP PO TID NERVE PAIN (Reported) Levetiracetam (Keppra) 750 MG TABLET 1 TAB PO BID SEIZURES (Reported) Lidocaine 5 % ADH..PATCH 1 PAT TOP DAILY PAIN (Reported) Metformin HCl 500 MG TABLET 1 TAB PO BID DM (Reported) Ondansetron (Zofran Odt) 4 MG TAB.RAPDIS 1 TAB SL TID PRN nausea Oxycodone HCl 10 MG TABLET 1 TAB PO TID PRN Pain (Reported) Oxycodone HCl 10 MG TABLET 1 TAB PO TID PRN pain Trazodone HCl 100 MG TABLET 1 TAB PO QPM SLEEP (Reported) Warfarin Sodium (Coumadin) (Unknown Strength) TABLET 2.5 MG PO 1700 BLOOD THINNER (Reported) Triage Nurses Notes Reviewed? yes HPI: Patient called 911 because he was not feeling well. Patient states that he's been feeling very anxious as well as nausea and vomiting since last night. Patient states that his last drink was last night. Patient states that he is treated been drinking heavily for the past few months. Patient denies any fevers or chills. Upon EMS arrival patient was tachypneic at 34 and having carpopedal spasms. Patient was instructed to slow down his respiratory rate which she was able to his usual and the carpopedal spasms resolved. Patient has a history of abusing narcotics but states that he is been on the taking his oxycodone as this is prescribed for his compression fracture in his back. Patient is not sure that he has been taking his medication appropriately. (JOE DEY MD) Onset: 2 weeks Duration: week(s): Timing: recent history Severity: severe Modifying Factors: Improves With: rest. Worsens With: eating, movement. (VANNESA DAVIS,CHARLES) Past History Travel History Traveled to [place] past 21 day No Medical History Any Pertinent Medical History? see below for history Neurological: seizure, BRAIN LESIONS EENT: NONE Cardiovascular: NONE Respiratory: PULM EMBOLUS Gastrointestinal: NONE Hepatic: NONE Renal: NONE Musculoskeletal: BACK PAIN, BILAT NECROCTI HIPS Psychiatric: ETOH USE Endocrine: NIDDM Blood Disorders: DVT Cancer(s): NONE RESERVATION AGENT/Reproductive: NONE History of MRSA: No History of VRE: No History of CDIFF: No Influenza Vaccine: 08/16/16 Surgical History Surgical History: non-contributory Psychosocial History Who do you live with Family Services at Home None What is your primary language Sammarinese Tobacco Use: Never used ETOH Use: alcoholic Illicit Drug Use: denies illicit drug use Family History Hx Contributory? No (JOE DEY MD) Review of Systems Review of Systems Constitutional: Reports: see HPI, weakness. EENTM: Reports: no symptoms. Respiratory: Reports: no symptoms. Cardiovascular: Reports: no symptoms. GI: Reports: see HPI, nausea, vomiting. Genitourinary: Reports: no symptoms. Musculoskeletal: Reports: see HPI, back pain. Skin: Reports: no symptoms. Neurological/Psychological: Reports: see HPI, anxiety. Hematologic/Endocrine: Reports: no symptoms. Immunologic/Allergic: Reports: no symptoms. All Other Systems: Reviewed and Negative (YISSEL DAVIS,JOE Martinez) Physical Exam Physical Exam General Appearance: well developed/nourished, alert, awake, anxious, severe distress Head: atraumatic, normal appearance Eyes: Bilateral: PERRL, EOMI. Ears, Nose, Throat: normal pharynx, DRY MUCOSA Neck: normal inspection, supple, full range of motion, NO JVD Respiratory: normal breath sounds, no respiratory distress, lungs clear, TACHYPNIC Cardiovascular: regular rate/rhythm, normal peripheral pulses Gastrointestinal: normal bowel sounds, soft, non-tender, no organomegaly Back: normal inspection Extremities: normal inspection, normal capillary refill, normal range of motion, no edema Neurologic/Psych: no motor/sensory deficits, awake, alert, oriented x 3, ANXIOUS Skin: warm/dry Lymphatic: no anterior cervical donna Core Measures ACS in differential dx? No CVA/TIA Diagnosis: No Severe Sepsis Present: No Septic Shock Present: No (YISSEL DAVIS,JOE Martinez) Progress Differential Diagnoses I considered the following diagnoses in my evaluation of the patient: [Alcohol withdrawal, drug withdrawal, lactic acidosis secondary to metformin, UTI, sepsis ] Plan of Care: Orders Procedure Date/time Status Regular Diet 04/29 L Active LACTIC ACID 04/29 0940 Active Patient Data 04/29 0758 Active Add-on Test (ER Only) 04/29 0725 Active OXYGEN SETUP (GEN) 04/29 0724 Active Saline Lock 04/29 0724 Active Admit to inpatient 04/29 0724 Active Vital Signs 04/29 0724 Active Activity/Ambulation 04/29 0724 Active Code Status 04/29 0724 Active PARTIAL THROMBOPLASTIN TIME 04/29 0640 Complete PROTHROMBIN TIME 04/29 0640 Complete LACTIC ACID 04/29 0640 Complete Telemetry/Associate Professor Of Medicine 04/29 0639 Active CIWA 04/29 0639 Active URINE DRUGS OF ABUSE 04/29 0639 Complete URINALYSIS 04/29 0639 Active TROPONIN LEVEL 04/29 0639 Complete LIPASE 04/29 0639 Complete ETHANOL 04/29 0639 Complete COMPREHENSIVE METABOLIC PANEL 04/29 0639 Complete CBC WITHOUT DIFFERENTIAL 04/29 0639 Complete AMYLASE 04/29 0639 Complete EKG 04/29 0639 Active MAGNESIUM 04/29 0635 Complete Current Medications Sig/Diane Start time Last Medication Dose Stop Time Status Admin Cyanocobalamin/ 1 BAG DAILY 04/29 1000 AC Thiamine/Pyridoxine (Vitamin in I.V.) Dextrose/Water 1,000 ML (D5W 1000) Magnesium Sulfate 1 GM Q2H 04/29 0815 AC 04/29 (Mag Sulfate in D5) 04/29 1214 0819 Dextrose/Water 100 ML (D5W) Magnesium Sulfate 2 GM ONCE ONE 04/29 0800 CAN 04/29 0801 Potassium Chloride 10 MEQ Q1H 04/29 0730 AC 04/29 04/29 0831 0734 Laboratory Tests 04/29/17 0754: Urine Opiates Screen < 100.00, Methadone Screen < 40, Barbiturate Screen < 60, Ur Phencyclidine Scrn < 6.00, Amphetamines Screen < 100, U Benzodiazepines Scrn < 85, Urine Cocaine Screen < 50, Urine Cannabis Screen 6.20, Urinalysis MOD H, Urine Color YEL, Urine Clarity CLEAR, Urine pH 6.5, Ur Specific [place] <= 1.005 , Urine Protein TRACE H, Urine Ketones NEG, Urine Nitrite NEG, Urine Bilirubin NEG, Urine Urobilinogen 4.0 H, Ur Leukocyte Esterase NEG, Ur Microscopic SEDIMENT EXAMINED, Urine RBC 1-3, Urine WBC 1-3 H, Ur Epithelial Cells RARE, Urine Bacteria FEW H, Urine Mucus RARE, Urine Hemoglobin TRACE-INTACT H, Urine Glucose NEG 04/29/17 0635: Lactic Acid 9.6 H 04/29/17 0635: Anion Gap 25 H, Estimated GFR > 60, BUN/Creatinine Ratio 14.3, Glucose 131 H, Calcium 8.5, Magnesium 0.8 *L, Total Bilirubin 3.8 H, AST 189 H, ALT 117 H, Alkaline Phosphatase 145 H, Troponin I 0.09, Total Protein 7.5, Albumin 4.5, Globulin 3.0, Albumin/Globulin Ratio 1.5, Amylase 68, Lipase 238, PT 15.8 H, INR 1.51 H, APTT 27, CBC w Diff NO MAN DIFF REQ, RBC 4.69 L, MCV 98.3 H, MCH 33.3 H, RDW 16.5 H, MPV 8.1, Gran % 68.3, Lymphocytes % 17.4 L, Monocytes % 13.5 H, Eosinophils % 0, Basophils % 0.8, Absolute Granulocytes 6.3, Absolute Lymphocytes 1.6, Absolute Monocytes 1.2 H, Absolute Eosinophils 0, Absolute Basophils 0.1, PUBS MCHC 33.9, Serum Alcohol < 10.0 Diagnostic Imaging: Viewed by Me: Radiology Read. Discussed w/RAD: Radiology Read. Initial ED EKG: S TACH, NO STT CHANGES Prior EKG: unchanged Rhythm Strip: sinus tachycardia Hand-Off Endorsed To: CHARLES GRANADO MD Endorsed Time: 0700 Pending: labs, Xray (YISSEL DAVIS,JOE Martinez) Differential Diagnoses I considered the following diagnoses in my evaluation of the patient: (CHARLES GRANADO MD) Departure Departure Disposition: STILL A PATIENT Condition: Stable Referrals: SANDY MANNING MD (PCP/Family) Departure Forms: Customer Survey General Discharge Information (JOE DEY MD) Departure Clinical Impression Primary Impression: Lactic acidosis Secondary Impressions: Dehydration, Hypokalemia, Hypomagnesemia, Hyponatremia syndrome Admission Note Spoke With: SANDY MANNING MD Documentation of Exam: Documentation of any treatments & extenuating circumstances including Concerns Regarding Discharge (functional status, medication knowledge or non-compliance, living conditions, etc.) that warrant an admission rather than observation: Serial lab exam electrolyte replacement medication adjustment psychiatric evaluation for alcohol dependence continuing care discharge planning (CHARLES GRANADO MD) Critical Care Note Critical Care Note Critical Care Time: non-applicable (YISSEL DAVIS,JOE Martinez) Critical Care Note Critical Care Time: 30-74 min (40) (CHARLES GRANADO MD)
--- NOTE | 2017-04-29 06:42 | NUR ---
PT BIBA FROM HOME C/O SOB, +N/+V. PT REPORTS HEAVY ALCOHOL USE REGULARLY. LAST DRINK "SOMETIME LAST NIGHT." UPON EMS ARRIVAL PT BREATHING 36 BPM AND HAVING CARPAL PEDAL SPASMS. PT ARRIVES FLUSHED, DIAPHORETIC, RR 22. PER EMS BS 146. PT TACHY 127. AT BEDSIDE.
[2017-04-29 06:55] LABS: ABSOLUTE BASOPHIL COUNT 0.1 /CUMM (0.0-0.2); ABSOLUTE EOSINOPHIL COUNT 0 /CUMM (0.0-0.7); ABSOLUTE GRANULOCYTE CT 6.3 /CUMM (1.4-6.5); ABSOLUTE LYMPH COUNT 1.6 /CUMM (1.2-3.4); ABSOLUTE MONOCYTE COUNT 1.2 /CUMM (0.10-0.60); BASOPHIL % 0.8 % (0.0-2.0); EOSINOPHIL % 0 % (0-5); GRANULOCYTE % 68.3 % (42.2-75.2); HEMATOCRIT 46.1 % (42-52); MEAN CORPUSCULAR HGB 33.3 PG (27.0-31.0); MEAN CORPUSCULAR HGB CONC 33.9 G/DL (33.0-37.0); MEAN CORPUSCULAR VOLUME 98.3 FL (80.0-94.0); MEAN PLATELET VOLUME 8.1 FL (7.4-10.4); PLATELET COUNT 195 /CUMM (130-400); RBC DISTRIBUTION WIDTH 16.5 % (11.5-14.5); RED BLOOD CELL CT 4.69 /CUMM (4.70-6.10); WHITE BLOOD CELL COUNT 9.2 /CUMM (4.8-10.8)
[2017-04-29 07:04] LABS: PT 15.8 SEC (9.4-12.5); PTT 27 SEC (25-37)
--- NOTE | 2017-04-29 07:18 | NUR ---
ASSUMED CARE OF PT, PT RESTING IN BED AT THIS TIME, RESPIRATIONS EVEN AND NONLABORED, EQUAL RISE AND FALL OF THE CHEST AND IN NAD AT THIS TIME. IVF RUNNING AT THIS TIME. PT ON MONITORS IN ROOM. REPORTS MILD TINGLING IN BILATERAL HANDS. DENIES SOB OR CP. NO TREMORS NOTED. MOTHER AT BEDSIDE, WILL CONT TO MONITOR.
--- NOTE | 2017-04-29 07:20 | NUR ---
CRITICAL TEST RESULTS [id number] SRIRAM GILL 42 M TESTS AND RESULTS: POTASSIUM 2.5, LACTATE ACID 9.6 Results received and read back by: HUAN HARMAN Results received date and time: 04/29/17 0721 The following provider was notified of the results, and read the results back: DR. GRANADO Notified date and time: 04/29/17 at 0721
--- NOTE | 2017-04-29 07:26 | NUR ---
PHARM CALLED FOR BANANA BAG.
--- NOTE | 2017-04-29 07:26 | RADIOLOGY REPORT ---
EXAMINATION: XR PORTABLE CHEST CLINICAL INFORMATION: Pneumonia cough COMPARISON: Prior chest March 2014 TECHNIQUE: Portable frontal view of the chest was obtained. FINDINGS: No significant abnormality is noted involving the heart, lungs, mediastinum, bony thorax or soft tissues. IMPRESSION: Unremarkable examination.
--- NOTE | 2017-04-29 07:48 | NUR ---
CRITICAL TEST RESULTS [id number] SRIRAM GILL 42 Mario TESTS AND RESULTS: MAGNESIUM 0.8 Results received and read back by: LEAH DE LEÓN Results received date and time: 04/29/17 0748 The following provider was notified of the results, and read the results back: DR. GRANADO Notified date and time: 04/29/17 at 0748
--- NOTE | 2017-04-29 07:56 | NUR ---
URINE OBTAINED AND SENT TO LAB
--- NOTE | 2017-04-29 08:24 | NUR ---
SLOWED KCL DOWN TO 50CC/HR PT C/O BURNING.
--- NOTE | 2017-04-29 08:55 | History & Physical ---
See Addendum General Information and HPI MD Statement: I have seen and personally examined SRIRAM GILL and documented this H&P. The patient is a 42 year old M who presented with a patient stated chief complaint of [nausea, vomiting]. 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 Patient states that for the last 1 month he has been drinking excessively about 1.75 L of vodka every 2 days. His last drink was yesterday evening. His by mouth intake has been very poor. He has been throwing up a lot at home secondary to excessive alcohol intake. Last night he was very anxious and had intense nausea and vomiting. He also started getting muscle cramps and pain all over his body. His mother reports that he has been abusing narcotics for a long time due to chronic back pain, Dr. Manning did not want him to take any more pain meds. Therefore he might be withdrawing from narcotics as well. Patient denies any fever, chills, chest pain, urinary or bowel symptoms. He has been having palpitations, carpopedal spasms, numbness and tingling all over his body. He also has diffuse abdominal pain. He normally uses crutches at home to ambulate as he has bilateral degeneration of his hip secondary to chronic prednisone at use. But for the past month he has been very weak and hasn't been able to walk at all. He wanted to get in a detox program but was denied because of his incapability to ambulate. He has been off Coumadin for the past 10 days due to supratherapeutic INR. In the ED vital showed a temp of 97.5, pulse 127, respirations 22, blood pressure 136/91, saturating 98% on room air. Pertinent labs showed no white count, H&H of 15.6/ 46.1, MCV 98.3, sodium 126, potassium 2.5, chloride 76, anion gap 25, creatinine 0.7, glucose 131, lactic acid 9.6, magnesium 0.8, total bilirubin 3.8, normal calcium, AST 189, ALT 117, alkaline phosphatase 145, troponin 0.09, normal amylase and lipase, INR 1.51 UA normal U tox negative, serum alcohol level less than 10 EKG :Sinus Tach 110, no ST-T wave changes, prolonged QTC 531 Chest x-ray negative for any acute pathology Allergies/Medications Allergies: Coded Allergies: cat dander (CANT BREATHE PER PT 03/23/17) Home Med list Docusate Sodium (Colace) 100 MG CAPSULE 1 CAP PO DAILY PRN CONSTIPATION Folic Acid 1 MG TABLET 1 TAB PO DAILY SUPPLEMENT (Reported) Gabapentin 300 MG CAPSULE 1 CAP PO TID NERVE PAIN (Reported) Levetiracetam (Keppra) 750 MG TABLET 1 TAB PO BID SEIZURES (Reported) Lidocaine 5 % ADH..PATCH 1 PAT TOP DAILY PAIN (Reported) Metformin HCl 500 MG TABLET 1 TAB PO BID DM (Reported) Ondansetron (Zofran Odt) 4 MG TAB.RAPDIS 1 TAB SL TID PRN nausea Oxycodone HCl 10 MG TABLET 1 TAB PO TID PRN Pain (Reported) Oxycodone HCl 10 MG TABLET 1 TAB PO TID PRN pain Trazodone HCl 100 MG TABLET 1 TAB PO QPM SLEEP (Reported) Warfarin Sodium (Coumadin) 2.5 MG TABLET 2.5 MG PO 1700 BLOOD THINNER ( Reported) Past History Travel History Traveled to [place] past 21 day No Medical History Neurological: seizure, BRAIN LESIONS EENT: NONE Cardiovascular: NONE Respiratory: PULM EMBOLUS Gastrointestinal: NONE Hepatic: NONE Renal: NONE Musculoskeletal: BACK PAIN, BILAT NECROCTI HIPS Psychiatric: ETOH USE Endocrine: NIDDM Blood Disorders: DVT Cancer(s): NONE MEDICAL TECHNOLOGIST PRN/Reproductive: NONE History of MRSA: No History of VRE: No History of CDIFF: No Surgical History Surgical History: non-contributory Past Family/Social History Psychosocial History Services at Home: None ETOH Use: alcoholic Illicit Drug Use: denies illicit drug use Review of Systems Review of Systems Constitutional: Reports: malaise, weakness. EENTM: Reports: no symptoms. Cardiovascular: Reports: palpitations. Respiratory: Reports: no symptoms. GI: Reports: abdominal pain, vomiting. Genitourinary: Reports: no symptoms. Musculoskeletal: Reports: back pain, muscle pain, muscle stiffness. Skin: Reports: no symptoms. Neurological/Psychological: Reports: anxiety, numbness, tingling, tremors. Hematologic/Endocrine: Reports: no symptoms. Exam & Diagnostic Data Last 24 Hrs of Vital Signs/I&O Vital Signs Date Time Temp Pulse Resp B/P B/P Pulse O2 O2 Flow FiO2 Mean Ox Delivery Rate 04/29 0823 106 16 143/93 100 Nasal 2.0L Cannula 04/29 0815 103 15 143/93 04/29 0715 98.0 107 15 136/79 04/29 0713 107 15 136/79 98 Room Air 04/29 0644 Room Air 04/29 0633 97.5 127 22 136/91 98 Room Air Intake & Output 04/29 1600 04/29 0800 04/29 0000 Intake Total 1000 Output Total 320 250 Balance -320 750 Intake, IV 1000 Output, Urine 320 250 Patient 99.79 kg Weight Weight Estimated Measurement Method Physical Exam General Appearance Alert, Oriented X3, Moderate Distress Skin No Rashes, No Breakdown, No Significant Lesion Skin Temp/Moisture Exam: Warm/Dry Sepsis Skin Exam (color): Normal for Ethnicity HEENT Atraumatic, PERRLA, EOMI, dry mucous membranes Neck Supple, No JVD Lymphatic Cervical nl Cardiovascular No Murmurs, tachycardia Lungs Clear to Auscultation, Normal Air Movement Abdomen diffuse tenderness Neurological Normal Tone, Sensation Intact, tremors, power 3/5 in b/l lower extremities, 4/5 in upper extremities Extremities No Clubbing, No Cyanosis, No Edema, Normal Pulses Vascular Normal Pulses Last 24 Hrs of Labs/Osorio: Laboratory Tests 04/29/17 0754: Urine Opiates Screen < 100.00, Methadone Screen < 40, Barbiturate Screen < 60, Ur Phencyclidine Scrn < 6.00, Amphetamines Screen < 100, U Benzodiazepines Scrn < 85, Urine Cocaine Screen < 50, Urine Cannabis Screen 6.20, Urinalysis MOD H, Urine Color YEL, Urine Clarity CLEAR, Urine pH 6.5, Ur Specific [place] <= 1.005 , Urine Protein TRACE H, Urine Ketones NEG, Urine Nitrite NEG, Urine Bilirubin NEG, Urine Urobilinogen 4.0 H, Ur Leukocyte Esterase NEG, Ur Microscopic SEDIMENT EXAMINED, Urine RBC 1-3, Urine WBC 1-3 H, Ur Epithelial Cells RARE, Urine Bacteria FEW H, Urine Mucus RARE, Urine Hemoglobin TRACE-INTACT H, Urine Glucose NEG 04/29/17 0635: Lactic Acid 9.6 H 04/29/17 0635: Anion Gap 25 H, Estimated GFR > 60, BUN/Creatinine Ratio 14.3, Glucose 131 H, Calcium 8.5, Magnesium 0.8 *L, Total Bilirubin 3.8 H, AST 189 H, ALT 117 H, Alkaline Phosphatase 145 H, Troponin I 0.09, Total Protein 7.5, Albumin 4.5, Globulin 3.0, Albumin/Globulin Ratio 1.5, Amylase 68, Lipase 238, PT 15.8 H, INR 1.51 H, APTT 27, CBC w Diff NO MAN DIFF REQ, RBC 4.69 L, MCV 98.3 H, MCH 33.3 H, RDW 16.5 H, MPV 8.1, Gran % 68.3, Lymphocytes % 17.4 L, Monocytes % 13.5 H, Eosinophils % 0, Basophils % 0.8, Absolute Granulocytes 6.3, Absolute Lymphocytes 1.6, Absolute Monocytes 1.2 H, Absolute Eosinophils 0, Absolute Basophils 0.1, PUBS MCHC 33.9, Serum Alcohol < 10.0 Assessment/Plan Assessment: Patient is a 42-year-old male with past medical history of brain tumor status post resection, seizures on Keppra, PE in 2013 on Coumadin, diabetes mellitus with peripheral neuropathy, anxiety and depression, chronic back pain, degenerative changes and 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 In the ED vital showed a temp of 97.5, pulse 127, respirations 22, blood pressure 136/91, saturating 98% on room air. Pertinent labs showed no white count, H&H of 15.6/ 46.1, MCV 98.3, sodium 126, potassium 2.5, chloride 76, anion gap 25, creatinine 0.7, glucose 131, lactic acid 9.6, magnesium 0.8, total bilirubin 3.8, normal calcium, AST 189, ALT 117, alkaline phosphatase 145, troponin 0.09, normal amylase and lipase. Umol 239, Serum Osmol 270 UA normal U tox negative, serum alcohol level less than 10 EKG :Sinus Tach 110, no ST-T wave changes, prolonged QTC 531 Chest x-ray negative for any acute pathology Assessment: * Alcohol withdrawal * Beer Potomania with hyponatremia, hypokalemia, hypomagnesemia, low serum and urine osmolarity * Anion gap metabolic acidosis * Lactic acidosis * Transaminitis * Chronic back pain * Diabetes mellitus with peripheral neuropathy * Opiate abuse and opiate Withdrawal * Subtherapeutic INR * Anxiety, depression and insomnia * Prolonged Qtc 531, watch for arrythmias Plan * Admit patient to telemetry for monitoring arrhythmias * Patient's symptoms are likely secondary to excessive alcohol intake leading to dehydration with poor solute intake. He received 3 L of fluid in the ED. Would aim for slow correction of sodium less than 10 mEq in 24 hours/less than 18meq in 48 hours. * We'll recheck BEP every 2-3 hours * Magnesium and potassium is being repleted * 3 sets of troponin and EKGs to rule out ACS * Continue banana bag for hydration * CIWA protocol * Scheduled IV Ativan and IV Ativan per CIWA protocol * INR 1.51, we will dose Coumadin at 2.5 mg today * Continue Keppra for seizure phophylaxsis * Hold metformin, continue 3 times a day Accu-Cheks and NovoLog sliding scale * Nephrology consult for management of hyponatremia * Pain control with Motrin and IV morphine * IM Tigan for Nausea given prolonged Qtc * USG abdomen for transaminitis * Psych consult for anxiety, depression and insomnia * freezing room worker consult * Diabetic diet * Full code As Ranked By This Provider Problem List: 1. Alcohol abuse 2. Alcohol dependence 3. Reactive depression (situational) 4. Intractable back pain 5. Lumbar compression fracture 6. Opiate withdrawal 7. Hypokalemia 8. Hypomagnesemia 9. Lactic acidosis 10. Dehydration Core Measures/Miscellaneous Acute Coronary Syndrome ACS Diagnosis: No Cerebrovascular Accident CVA/TIA Diagnosis: No Congestive Heart Failure CHF Diagnosis: No VTE (View Protocol) VTE Risk Factors: Age > 40, Immobility, paresis [facility] d/t: No contraindications No VTE Pharm Prophylaxis d/t: No contraindications VTE Diagnosis: No VTE Type: NONE VTE Confirmed by (Test): NONE Sepsis (View Protocol) Severe Sepsis Present: No Septic Shock Septic Shock Present: No Miscellaneous Documentation Attending Case Discussed With: SANDY MANNING MD Primary Care Physician: SANDY MANNING MD Patient sees these Specialists none Level of Patient Care: Telemetry
--- NOTE | 2017-04-29 09:17 | NUR ---
PT REQUESTING PAIN MEDS, WHEN THIS NURSE ASKED HIM WHAT HE TAKES , STATES THAT HE TAKES OXYCODONE BUT HAS BEEN OUT OF THEM FOR 1.5 WEEKS, MOTHER STATES THAT PT HAS BEEN VOMITTING FOR OVER 2 WEEKS NON STOP . PT MEDICATED WITH DILAUDID 1 MG IV AND MEDICATED WITH REGLAN FOR CONTINUE COMPLAINTS OF NAUSEA. DR CEBALLOS AT BEDSIDE
--- NOTE | 2017-04-29 09:40 | Admission Certification ---
Admission Certification Certification Statement - As attending physician, I certify that at the time of - admission, based on clinical presentation, severity of - symptoms, need for further diagnostic testing and - therapeutic interventions, and risk of adverse outcomes - without in-hospital treatment, in my clinical assessment, - this patient requires an acute hospital stay for a minimum - of two nights or longer. I have also considered psychsocial - factors such as support system, advanced age, financial - issues, cognitive issues, and failed out-patient treatments, - past re-admission history, safety of patient, and lack of - compliance as applicable. Specific rationale supporting this admission is: electrolyte imbalance, lactic acidosis opiod withdrawal alcohol withdrawal
--- NOTE | 2017-04-29 09:44 | NUR ---
PT RESTING IN BED AT THIS TIME, REMAINS ON MONITOR, RESP EVEN AND NONLABORED, A&OX4.
--- NOTE | 2017-04-29 09:46 | PN- Att Addend ---
Attending Addendum Attending Brief Note 42 year old male homebound, with chronic pain in his hips on chronic pain medications none for the last week, on anticoagulation and recently his INR was supratherapeutic and he was holding the anticoagulation for a couple of days. Also still drinking alcohol comes in not feeling well nausea vomiting usual pains, in the ER found to have hyponatremia, hypokalemia and hypomagnesemia, lactic acidosis.Sub Therapeutic INR now, also withdrawing from alcohol and opiates. Patient will be admitted try to correct the electrolyte imbalance, keep him on telemetry. Giv him his Coumadin monitor the labs very closely. Input from relief operator, may need ICU care depending on the next blood work. Also get psychiatry and social workers consultation. Laboratory Tests 04/29 04/29 04/29 0931 0931 075 Chemistry Sodium Pending Potassium Pending Chloride Pending Carbon Dioxide Pending Anion Gap Pending BUN Pending Creatinine Pending BUN/Creatinine Ratio Pending Lactic Acid Pending Troponin I Pending Urines Urinalysis MOD H Urine Color (YEL,AMB,STR) YEL Urine Clarity (CLEAR) CLEAR Urine pH (5.0 - 8.0) 6.5 Ur Specific [place] (1.001 - 1.035) <= 1.005 Urine Protein (NEG,<30 MG/DL) TRACE H Urine Ketones (NEG) NEG Urine Nitrite (NEG) NEG Urine Bilirubin (NEG) NEG Urine Urobilinogen (0.1 - 1.0 EU/dl) 4.0 H Ur Leukocyte Esterase (NEG) NEG Ur Microscopic SEDIMENT EXAMINED Urine RBC (0 - 5 /HPF) 1-3 Urine WBC (0 - 2 /HPF) 1-3 H Ur Epithelial Cells (NONE,FEW) RARE Urine Bacteria (NEG/NONE) FEW H Urine Mucus (FEW,NONE) RARE Urine Hemoglobin (NEG) TRACE-INTACT H Urine Glucose (N MG/DL) NEG 04/29 04/29 04/29 0754 0635 0635 Chemistry Sodium (137 - 145 mmol/L) 126 L Potassium (3.5 - 5.1 mmol/L) 2.5 *L Chloride (98 - 107 mmol/L) 76 L Carbon Dioxide (22 - 30 mmol/L) 25 Anion Gap (5 - 16) 25 H BUN (9 - 20 mg/dL) 10 Creatinine (0.7 - 1.2 mg/dL) 0.7 Estimated GFR (>60 ml/min) > 60 BUN/Creatinine Ratio (7 - 25 %) 14.3 Glucose (65 - 99 mg/dL) 131 H Serum Osmolality (285 - 295 MOSM/KG) 270 L Lactic Acid (0.7 - 2.1 mmol/L) 9.6 H Calcium (8.4 - 10.2 mg/dL) 8.5 Magnesium (1.6 - 2.3 mg/dL) 0.8 *L Total Bilirubin (0.2 - 1.3 mg/dL) 3.8 H AST (17 - 59 U/L) 189 H ALT (21 - 72 U/L) 117 H Alkaline Phosphatase (< 127 U/L) 145 H Creatine Kinase (55 - 170 U/L) 108 Troponin I (<0.11 ng/ml) 0.09 Total Protein (6.3 - 8.2 g/dL) 7.5 Albumin (3.5 - 5.0 g/dL) 4.5 Globulin (1.9 - 4.2 gm/dL) 3.0 Albumin/Globulin Ratio (1.1 - 2.2 %) 1.5 Amylase (30 - 110 U/L) 68 Lipase (23 - 300 U/L) 238 Coagulation PT (9.4 - 12.5 SEC) 15.8 H INR (0.90 - 1.17) 1.51 H APTT (25 - 37 SEC) 27 Hematology CBC w Diff NO MAN DIFF REQ WBC (4.8 - 10.8 /CUMM) 9.2 RBC (4.70 - 6.10 /CUMM) 4.69 L Hgb (14.0 - 18.0 G/DL) 15.6 Hct (42 - 52 %) 46.1 MCV (80.0 - 94.0 FL) 98.3 H MCH (27.0 - 31.0 PG) 33.3 H RDW (11.5 - 14.5 %) 16.5 H Plt Count (130 - 400 /CUMM) 195 MPV (7.4 - 10.4 FL) 8.1 Gran % (42.2 - 75.2 %) 68.3 Lymphocytes % (20.5 - 51.1 %) 17.4 L Monocytes % (1.7 - 9.3 %) 13.5 H Eosinophils % (0 - 5 %) 0 Basophils % (0.0 - 2.0 %) 0.8 Absolute Granulocytes (1.4 - 6.5 /CUMM) 6.3 Absolute Lymphocytes (1.2 - 3.4 /CUMM) 1.6 Absolute Monocytes (0.10 - 0.60 /CUMM) 1.2 H Absolute Eosinophils (0.0 - 0.7 /CUMM) 0 Absolute Basophils (0.0 - 0.2 /CUMM) 0.1 PUBS MCHC (33.0 - 37.0 G/DL) 33.9 Toxicology Urine Opiates Screen (>2000 NG/ML) < 100.00 Methadone Screen (>300 NG/ML) < 40 Barbiturate Screen (>200 NG/ML) < 60 Ur Phencyclidine Scrn (>25 NG/ML) < 6.00 Amphetamines Screen (>1000 NG/ML) < 100 U Benzodiazepines Scrn (>200 NG/ML) < 85 Urine Cocaine Screen (>300 NG/ML) < 50 Urine Cannabis Screen (>50 NG/ML) 6.20 Serum Alcohol (<10 MG/DL) < 10.0 Urines Urine Osmolality (300 - 1000 MOSM/KG) 239 L Ur Random Creatinine (mg/dL) 66.7 Ur Random Sodium (30 - 90 mmol/L) 40 Ur Random Potassium (mmol/L) 16.4 Fraction Sodium Excret (<1% %) 0.3
--- NOTE | 2017-04-29 10:17 | NUR ---
PT TO US AT THIS TIME.
--- NOTE | 2017-04-29 10:19 | NUR ---
CRITICAL TEST RESULTS [id number] SRIRAM GILL 42 Mario TESTS AND RESULTS: LACTIC 2.6 Results received and read back by: TAVO BURNS Results received date and time: 04/29/17 1019 The following provider was notified of the results, and read the results back: DR RAMIREZ Notified date and time: 04/29/17 at 1019
--- NOTE | 2017-04-29 10:22 | NUR ---
CRITICAL TEST RESULTS [id number] SRIRAM GILL 42 Mario TESTS AND RESULTS: K+ 2.4 Results received and read back by: TAVO BURNS Results received date and time: 04/29/17 1022 The following provider was notified of the results, and read the results back: DR RAMIREZ Notified date and time: 04/29/17 at 1022
--- NOTE | 2017-04-29 10:24 | NUR ---
PT TO US VIA STRETCHER AT THIS TIME
--- NOTE | 2017-04-29 10:53 | NUR ---
60MEQ PO POTASSIUM ADMINISTERED PER PRIOR EMAR ORDER. PT VS UPDATED, HAD MINIMAL COUGHING AFTER TAKING PO POTASSIUM. IN NAD AT THIS TIME.
--- NOTE | 2017-04-29 11:03 | ULTRASOUND REPORT ---
EXAMINATION: US ABDOMEN LIMITED CLINICAL INFORMATION: Transaminitis. COMPARISON: Abdominal ultrasound 11/28/2013 TECHNIQUE: Real-time imaging of the right upper quadrant abdominal viscera. FINDINGS: PANCREAS: The pancreas is obscured by overlying bowel gas. LIVER: The liver is slightly prominent and has diffusely increased echogenicity which is slightly heterogenous. The findings are consistent with hepatic steatosis. No focal lesion or intrahepatic biliary duct dilatation. GALLBLADDER: The gallbladder is physiologically distended without evidence of stones, sludge, polyps, wall thickening or pericholecystic fluid. COMMON BILE DUCT: Normal in caliber measuring 0.3 cm in diameter. RIGHT KIDNEY: There is no hydronephrosis. No renal calculi or focal parenchymal lesions. The kidney measures 12.8 cm in maximum dimension. FREE FLUID: None. IMPRESSION: 1. The study redemonstrates hepatic steatosis. 2. There is no evidence of cholecystitis and the intrahepatic ducts are not distended.
--- NOTE | 2017-04-29 11:25 | NUR ---
DR RAMIREZ NOTIFIED OF DIFFICULTY SWALLOWING POST MEDICATION ADMINISTRATION AND SWALLOW EVAL ORDERED.
--- NOTE | 2017-04-29 12:59 | NUR ---
PT SLEEPING AT THIS TIME, REMAINS ON 2L NC. RESP EVEN AND NONLABORED, EQUAL RISE AND FALL OF THE CHEST AND IN NAD. REMAINS ON MONITORS IN ROOM, VSS. WILL CONT TO MONITOR.
--- NOTE | 2017-04-29 13:27 | NUR ---
PT AWAKE AND ALERT COMPLAINS OF FEELING ANXIOUS AND SHAKEY AT THIS TIME AND SLIGHT NAUSEA . PT NOTED WITH MILD VISIBLE TREMORS
--- NOTE | 2017-04-29 13:29 | Cons- Nephrology ---
General Information and HPI Consulting Request Date of Consult: 04/29/17 Requested By: SANDY MANNING MD Reason for Consult: Hyponatremia Source of Information: patient, old records Exam Limitations: no limitations History of Present Illness: Mr. Rowe is a 42 year old gentleman with a past medical history of NIDDM, a right frontal lobe brain mass which was diagnosed as a meningioma in 2013 status post resection and radiation therapy, a/w seizure d/o (on keppra), with subsequent DVT/pulmonary embolism in 2013, status post IVC filter placement, currently on Coumadin for anticoagulation, who presents to [facility] emergency department with complaints of nausea, vomiting and paresthesias. Of note, he was previously on opioid analgesics, and ran out of his prescription last week. He has not had any opioids for at least 1 week. He states that for the last 2 weeks approximately he has had a significant decrease in his appetite, eating only a few bites per day, with associated nausea and vomiting. He is unsure if he is eating less secondary to nausea/ vomiting, or just due to decreased appetite. He denies any significant abdominal pain but states that he does have abdominal cramping secondary to vomiting. He also states that in addition to his abdominal cramping, he developed paresthesias in his hands and legs, and subsequently describes carpopedal spasm. He denies any visual or hearing disturbances, headache. He denies any dizziness or lightheadedness. He does complain of throat pain and difficulty swallowing. He denies any dyspnea, chest pain or palpitations. He denies any abdominal pain [aside from his cramping with vomiting], changes in his bowel habits including diarrhea or constipation. He denies any abdominal distention were unintentional weight gain. He denies any other musculoskeletal or neurological problems aside from his paresthesias and spasms. He states that he has been drinking alcohol since being discharged from [place] in January 2017. He does have a previous history of 20 years of alcohol abuse, with delirium tremens, and unsuccessful detox. He states he drinks 1.75 L of vodka every 2 days. Additional social history includes previous tobacco use, as well as cocaine and one-time use of intravenous drugs. He does have a significant family history of alcohol abuse in his father, as well as his uncle of alcoholic cirrhosis. He lives with his parents as well as brothers. Vitals on admission, temperature 97.5, heart rate 127, respiratory rate 22, blood pressure 136/91 saturating 98% on room air. Admission labs were significant for hemoglobin/hematocrit 15.6/46.1. Electrolytes were significant for sodium 126, potassium 2.5. Cl 76 and bicarb 29. BUN/Cr 8/0.7. Magnesium was 0.8. Calcium 8.5. Phosphorus 1.5 [measured in 2012]. Lactic acid was 9.6, and came down to 2.6. Glucose 131. Total bilirubin 3.8 [direct bilirubin 0.7]. AST/a.l. T1 89/117, with alkaline phosphatase 145. INR was 1.51. Serum osmolarity was 270, urine osmolarity 239, urine Na 40 and FeNa 0.3%. CXR showed no acute patholgy. Abdominal U/S redemonstrated hepatic steatosis w/ o evidence of cholecystitis and the intrahepatic ducts distension. Allergies/Medications Allergies: Coded Allergies: cat dander (CANT BREATHE PER PT 03/23/17) Home Med List: Docusate Sodium (Colace) 100 MG CAPSULE 1 CAP PO DAILY PRN CONSTIPATION Folic Acid 1 MG TABLET 1 TAB PO DAILY SUPPLEMENT (Reported) Gabapentin 300 MG CAPSULE 1 CAP PO TID NERVE PAIN (Reported) Levetiracetam (Keppra) 750 MG TABLET 1 TAB PO BID SEIZURES (Reported) Lidocaine 5 % ADH..PATCH 1 PAT TOP DAILY PAIN (Reported) Metformin HCl 500 MG TABLET 1 TAB PO BID DM (Reported) Ondansetron (Zofran Odt) 4 MG TAB.RAPDIS 1 TAB SL TID PRN nausea Oxycodone HCl 10 MG TABLET 1 TAB PO TID PRN Pain (Reported) Oxycodone HCl 10 MG TABLET 1 TAB PO TID PRN pain Trazodone HCl 100 MG TABLET 1 TAB PO QPM SLEEP (Reported) Warfarin Sodium (Coumadin) (Unknown Strength) TABLET 2.5 MG PO 1700 BLOOD THINNER (Reported) Current Medications: Current Medications Sig/Diane Start time Last Medication Dose Route Stop Time Status Admin Cyanocobalamin/ 1 BAG DAILY 04/29 1000 AC 04/29 Thiamine/Pyridoxine IV 1015 Dextrose/Water 1,000 ML Docusate Sodium 100 MG DAILY PRN 04/29 0945 AC PO Gabapentin 0 .STK-MED ONE 04/29 1013 DC PO Gabapentin 300 MG TID 04/29 1000 AC 04/29 PO 1015 Hydromorphone HCl 0 .STK-MED ONE 04/29 0852 DC .ROUTE Hydromorphone HCl 1 MG ONCE ONE 04/29 0845 DC 04/29 IV 04/29 0846 0851 Insulin Aspart 0 TIDAC 04/29 1200 DC SC Levetiracetam 750 MG BID 04/29 1000 AC 04/29 PO 1015 Lorazepam 1 MG Q1P PRN 04/29 0915 AC IV Lorazepam 1 MG Q4P PRN 04/29 0915 AC IV Lorazepam 2 MG ONE ONE 04/29 0730 DC 04/29 IV 04/29 0731 0727 Lorazepam 0 .STK-MED ONE 04/29 0729 DC .ROUTE Lorazepam 0 .STK-MED ONE 04/29 0652 DC .ROUTE Lorazepam 1 MG ONCE ONE 04/29 0645 DC 04/29 IV 04/29 0646 0647 Magnesium Sulfate 1 GM Q2H 04/29 0815 DC 04/29 Dextrose/Water 100 ML IV 04/29 1214 0910 Magnesium Sulfate 2 GM ONCE ONE 04/29 0800 CAN IV 04/29 0801 Metoclopramide HCl 0 .STK-MED ONE 04/29 0852 DC .ROUTE Metoclopramide HCl 5 MG ONCE ONE 04/29 0845 DC 04/29 IV 04/29 0846 0851 Morphine Sulfate 2 MG Q4P PRN 04/29 0915 AC IV Ondansetron HCl 4 MG ONCE ONE 04/29 0645 DC 04/29 IV 04/29 0646 0644 Ondansetron HCl 0 .STK-MED ONE 04/29 0644 DC .ROUTE Potassium Chloride 20 MEQ ONCE ONE 04/29 1115 DC 04/29 PO 04/29 1116 1120 Potassium Chloride 0 .STK-MED ONE 04/29 1046 DC PO Potassium Chloride 10 MEQ ONCE ONE 04/29 1030 DC 04/29 IV 04/29 1031 1052 Potassium Chloride 10 MEQ ONCE ONE 04/29 1030 CAN IV 04/29 1031 Potassium Chloride 20 MEQ ONCE ONE 04/29 1030 CAN PO 04/29 1031 Potassium Chloride 40 MEQ BID 04/29 1023 AC 04/29 PO 04/29 2201 1053 Potassium Chloride 10 MEQ Q1H 04/29 0730 DC 04/29 IV 04/29 0831 0853 Sodium Chloride 1,000 ML BOLUS ONE 04/29 0730 DC / IV 04/29 0829 0734 Sodium Chloride 1,000 ML BOLUS ONE 04/29 0730 DC / IV 04/29 0829 0819 Sodium Chloride 1,000 ML BOLUS ONE 04/29 0645 DC / IV 04/29 0744 0644 Sodium Chloride 1,000 ML BOLUS ONE 04/29 0645 DC / IV 04/29 0744 0727 Tramadol HCl 50 MG Q6P PRN 04/29 0915 AC PO Trazodone HCl 100 MG QPM 04/29 2200 AC PO Trimethobenzamide HCl 200 MG 4 TIMES/DAY PRN 04/29 0915 AC IM Warfarin Sodium 2.5 MG COUMADIN 1700 ONE 04/29 1700 AC PO 04/29 1701 Review of Systems Review of Systems Constitutional: Reports: diaphoresis. Denies: chills, fever, malaise. EENTM: Reports: throat pain. Denies: blurred vision, visual changes. Cardiovascular: Denies: chest pain, edema, orthopena, palpitations. Respiratory: Denies: cough, hemoptysis, short of breath. GI: Reports: abdominal pain, nausea, vomiting. Denies: constipation, diarrhea, melena, bloody stool. Genitourinary: Reports: no symptoms. Musculoskeletal: Reports: see HPI. Neurological/Psychological: Reports: anxiety, numbness, paresthesia, tingling, tremors. Denies: cognitive dysfunction. Immunologic/Allergic: Reports: no symptoms. Past History Travel History Traveled to [place] past 21 day No Medical History Neurological: seizure, Meningioma EENT: NONE Cardiovascular: NONE Respiratory: PULM EMBOLUS Gastrointestinal: NONE Hepatic: NONE Renal: NONE Musculoskeletal: BACK PAIN, BILAT NECROCTI HIPS Psychiatric: ETOH USE Endocrine: NIDDM Blood Disorders: DVT Cancer(s): NONE TRACTOR OPERATOR/Reproductive: NONE Surgical History Surgical History: Brain lesion rescection Psychosocial History Where Do You Live? Home Who Do You Live With? 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 Exam & Diagnostic Data Vital Signs and I&O Vital Signs Date Time Temp Pulse Resp B/P B/P Pulse O2 O2 Flow FiO2 Mean Ox Delivery Rate 04/29 1329 98.9 99 20 104/68 04/29 1257 97.6 94 16 112/72 04/29 1256 97.4 94 16 112/72 98 Nasal 2.0L Cannula 04/29 1219 97.6 101 20 102/63 04/29 1155 97.6 101 20 102/63 04/29 1150 97.6 101 20 102/63 96 Room Air 04/29 1056 97.0 112 20 133/96 90 Room Air 04/29 1055 98.6 112 20 133/96 04/29 1017 102 15 117/72 98 04/29 1000 98.2 102 18 117/72 96 Room Air 04/29 0917 102 15 117/72 04/29 0854 106 19 125/78 98 Nasal 2.0L Cannula 04/29 0823 106 16 143/93 100 Nasal 2.0L Cannula 04/29 0815 103 15 143/93 04/29 0715 98.0 107 15 136/79 04/29 0713 107 15 136/79 98 Room Air 04/29 0644 Room Air 04/29 0633 97.5 127 22 136/91 98 Room Air Intake & Output 04/29 1600 04/29 0400 04/28 1600 04/28 0400 04/27 1600 04/27 0400 Intake Total 4400 Output Total 890 Balance 3510 Intake, IV 4400 Output, Urine 890 Patient 99.79 kg Weight Weight Reported by Patient Measurement Method Physical Exam General Appearance: well developed/nourished, alert, awake, anxious Head: atraumatic, normal appearance Eyes: Bilateral: EOMI, other (sceral icterus, nystagmus). Ears, Nose, Throat: odynophagia with bedside swallow evaluation with water Respiratory: normal breath sounds, chest non-tender, lungs clear Cardiovascular: tachycardia, S1, S2 w/o MRG Peripheral Pulses: 4+ brachial (R), 4+ brachial (L), 4+ dorsalis pedis (R), 4+ dorsalis pedis (L) Gastrointestinal: normal bowel sounds, soft, mild tenderness to palpation Rectal: deferred Extremities: normal inspection, normal capillary refill Neurologic/Psych: no motor/sensory deficits, awake, alert, oriented x 3, motor weakness, No asterixis or muscle fasiculation with prolonged contraction Results Pertinent Lab Results: Laboratory Tests 04/29 04/29 04/29 1311 0931 0931 Chemistry Sodium (137 - 145 mmol/L) Pending 132 L Potassium (3.5 - 5.1 mmol/L) Pending 2.4 *L Chloride (98 - 107 mmol/L) Pending 90 L Carbon Dioxide (22 - 30 mmol/L) Pending 29 Anion Gap (5 - 16) Pending 13 BUN (9 - 20 mg/dL) Pending 8 L Creatinine (0.7 - 1.2 mg/dL) Pending 0.6 L Estimated GFR (>60 ml/min) > 60 BUN/Creatinine Ratio (7 - 25 %) Pending 13.3 Lactic Acid (0.7 - 2.1 mmol/L) 2.6 H Magnesium (1.6 - 2.3 mg/dL) 1.3 L Troponin I Pending 04/29 04/29 04/29 0754 0754 0635 Chemistry Lactic Acid (0.7 - 2.1 mmol/L) 9.6 H Toxicology Urine Opiates Screen (>2000 NG/ML) < 100.00 Methadone Screen (>300 NG/ML) < 40 Barbiturate Screen (>200 NG/ML) < 60 Ur Phencyclidine Scrn (>25 NG/ML) < 6.00 Amphetamines Screen (>1000 NG/ML) < 100 U Benzodiazepines Scrn (>200 NG/ML) < 85 Urine Cocaine Screen (>300 NG/ML) < 50 Urine Cannabis Screen (>50 NG/ML) 6.20 Urines Urinalysis MOD H Urine Color (YEL,AMB,STR) YEL Urine Clarity (CLEAR) CLEAR Urine pH (5.0 - 8.0) 6.5 Ur Specific [place] (1.001 - 1.035) <= 1.005 Urine Protein (NEG,<30 MG/DL) TRACE H Urine Ketones (NEG) NEG Urine Nitrite (NEG) NEG Urine Bilirubin (NEG) NEG Urine Urobilinogen (0.1 - 1.0 EU/dl) 4.0 H Ur Leukocyte Esterase (NEG) NEG Ur Microscopic SEDIMENT EXAMINED Urine RBC (0 - 5 /HPF) 1-3 Urine WBC (0 - 2 /HPF) 1-3 H Ur Epithelial Cells (NONE,FEW) RARE Urine Bacteria (NEG/NONE) FEW H Urine Mucus (FEW,NONE) RARE Urine Hemoglobin (NEG) TRACE-INTACT H Urine Osmolality (300 - 1000 MOSM/KG) 239 L Ur Random Creatinine (mg/dL) 66.7 Ur Random Sodium (30 - 90 mmol/L) 40 Ur Random Potassium (mmol/L) 16.4 Fraction Sodium Excret (<1% %) 0.3 Urine Glucose (N MG/DL) NEG 04/29 0635 Chemistry Sodium (137 - 145 mmol/L) 126 L Potassium (3.5 - 5.1 mmol/L) 2.5 *L Chloride (98 - 107 mmol/L) 76 L Carbon Dioxide (22 - 30 mmol/L) 25 Anion Gap (5 - 16) 25 H BUN (9 - 20 mg/dL) 10 Creatinine (0.7 - 1.2 mg/dL) 0.7 Estimated GFR (>60 ml/min) > 60 BUN/Creatinine Ratio (7 - 25 %) 14.3 Glucose (65 - 99 mg/dL) 131 H Serum Osmolality (285 - 295 MOSM/KG) 270 L Calcium (8.4 - 10.2 mg/dL) 8.5 Magnesium (1.6 - 2.3 mg/dL) 0.8 *L Total Bilirubin (0.2 - 1.3 mg/dL) 3.8 H AST (17 - 59 U/L) 189 H ALT (21 - 72 U/L) 117 H Alkaline Phosphatase (< 127 U/L) 145 H Creatine Kinase (55 - 170 U/L) 108 Troponin I (<0.11 ng/ml) 0.09 Total Protein (6.3 - 8.2 g/dL) 7.5 Albumin (3.5 - 5.0 g/dL) 4.5 Globulin (1.9 - 4.2 gm/dL) 3.0 Albumin/Globulin Ratio (1.1 - 2.2 %) 1.5 Amylase (30 - 110 U/L) 68 Lipase (23 - 300 U/L) 238 Coagulation PT (9.4 - 12.5 SEC) 15.8 H INR (0.90 - 1.17) 1.51 H APTT (25 - 37 SEC) 27 Hematology CBC w Diff NO MAN DIFF REQ WBC (4.8 - 10.8 /CUMM) 9.2 RBC (4.70 - 6.10 /CUMM) 4.69 L Hgb (14.0 - 18.0 G/DL) 15.6 Hct (42 - 52 %) 46.1 MCV (80.0 - 94.0 FL) 98.3 H MCH (27.0 - 31.0 PG) 33.3 H RDW (11.5 - 14.5 %) 16.5 H Plt Count (130 - 400 /CUMM) 195 MPV (7.4 - 10.4 FL) 8.1 Gran % (42.2 - 75.2 %) 68.3 Lymphocytes % (20.5 - 51.1 %) 17.4 L Monocytes % (1.7 - 9.3 %) 13.5 H Eosinophils % (0 - 5 %) 0 Basophils % (0.0 - 2.0 %) 0.8 Absolute Granulocytes (1.4 - 6.5 /CUMM) 6.3 Absolute Lymphocytes (1.2 - 3.4 /CUMM) 1.6 Absolute Monocytes (0.10 - 0.60 /CUMM) 1.2 H Absolute Eosinophils (0.0 - 0.7 /CUMM) 0 Absolute Basophils (0.0 - 0.2 /CUMM) 0.1 PUBS MCHC (33.0 - 37.0 G/DL) 33.9 Toxicology Serum Alcohol (<10 MG/DL) < 10.0 Assessment/Plan Assessment/Recommendations Assessment: Mr. Rowe is a 42 year old gentleman with a past medical history of NIDDM, a right frontal lobe brain mass which was diagnosed as a meningioma in 2013 status post resection and radiation therapy, a/w seizure d/o (on keppra), with subsequent DVT/pulmonary embolism in 2013, status post IVC filter placement, currently on Coumadin for anticoagulation, who presents to [facility] emergency department with complaints of nausea, vomiting and paresthesias. Of note, he was previously on opioid analgesics, and ran out of his prescription last week. He has not had any opioids for at least 1 week. Admission labs were significant for hemoglobin/hematocrit 15.6/46.1. Electrolytes were significant for sodium 126, potassium 2.5. Cl 76 and bicarb 29. BUN/Cr 8/0.7. Magnesium was 0.8. Calcium 8.5. Phosphorus 1.5 [measured in 2012]. Lactic acid was 9.6, and came down to 2.6. Glucose 131. Total bilirubin 3.8 [direct bilirubin 0.7]. AST/a.l. T1 89/117, with alkaline phosphatase 145. INR was 1.51. Problem List/Assessment and Plan 1. Electrolyte imbalance - Hyponatremia/Hypokalemia/Hypomagnesemia 2. Hx of PE s/p IVC filter, on coumadin 3. Alcohol Abuse with hx of DTs Recommendations: 1. Electrolyte Imbalanace Hyponatremia * His total body water is approximately, 0.6 x his weight (100kg) = 60. * His Na deficit based on the most recent labs, Na 132 is = TBW x (goal Na - current Na) --> 60 x (140 - 132) = 480 mmol * Plasma osmolality was 270, and he appeared clinically euvolemic, however given his decreased PO intake and 2 week history of vomiting, he is most likely volume contracted and hypovolemic hyponatremia is the most likely cause of his hyponatremia. This corresponds with a FeNa of <1%. * He has been given 4 L of NS, which contain approximately 606mmol of Na, and I do not believe he needs any more boluses, but as he is also contracted, and has a low K of 2.4, please consider maintenance fluid of NS with 20 or 40mEq of K to be run at 125 cc/hour for 3 bags, as this will give him 60-120 mEq of potassium. * He does have U-waves on his EKG, and a prolonged QTc. An EKG should be repeated along with his lytes. Goal K should be around 4. * Additionally, given his profound hypomagesemia, please correct Mg prior to potassium, as Mg is needed for K absorption in the nephron, ROMK receptor. * He has been given 2g of Magnesium sulfate. Consider further repletion, based on his repeat labs. * Additionally, his previous Phosphorous was 1.5 in 2013. He does not appear malnourished, and his albumin and BUN are WNL, however given his alcohol abuse and poor PO intake, hypophosphatemia should also be considered and Phos rechecked. * Please also consider monitoring Phosphorus for a few days, as he is getting a banana bag w 5% dextrose, which will stimulate a catabolic state, and may induce refeeding syndrome. * Please monitor labs q2-4 hours initially to monitor for improvement of electrolytes, and not over correct Na. Goal: correct Na at a rate of 0.5 mEq/L/h with care not to rapidly correct for risk of central pontine myelinolysis. 2. Hx of PE * Patient status post IVC filter placement and has been on anticoagulation for the last 3 years. Upon further questioning, he states that his DVT/PE were diagnosed a few days after surgery. * I'm not sure if he's been worked up for hypercoagulable state, however given his immobility/stasis after the surgery, a thrombus/embolism would be considered provoked, and he may have been anticoagulated for longer than the recommended 6 months. * I do not believe he has history of dysrhythmias or atrial fibrillation. Please consider a pulmonary consult for evaluation if he still needs to be on anticoagulation for his previous pulmonary embolism. 3. Alcohol detox * He is on CIWA protocol with Ativan to prevent withdrawal and delirium tremens * Continue current treatment, however as mentioned above consider switching maintenance fluid from a banana bag with dextrose to normal saline with potassium, and recheck his phosphorus levels as they were low in 2013.
--- NOTE | 2017-04-29 13:30 | NUR ---
SWALLOW QUINTIN RN AT BEDSIDE AND REPORTS PT PASSED SCREEN AND SHE WILL SPEAK WITH MD TO ORDER A SOFT DIET.
--- NOTE | 2017-04-29 13:33 | NUR ---
PT MEDICATED WITH ATIVAN 1 MG IV FOR CIWA 13
--- NOTE | 2017-04-29 14:28 | NUR ---
ASHLEY CALLED AT THIS TIME ABOUT CHANGING DIET ORDER TO MECHANICAL SOFT
--- NOTE | 2017-04-29 15:00 | NUR ---
VS UPDATED AND STABLE AND CIWA NOW 1. PT CALM AND COOPERATIVE. STATES "THE MEDICATIONS HELPED." RESP EVEN AND NONLABORED, EQUAL RISE AND FALL OF THE CHEST. MOTHER NOW AT BEDSIDE AGAIN AFTER LEAVING APPROX 4 HOURS AGO. PT DENIES NEED OF ANYTHING. WILL CONT TO MONITOR.
--- NOTE | 2017-04-29 16:09 | NUR ---
REPEAT LACTIC DRAWN AND SENT
--- NOTE | 2017-04-29 16:12 | NUR ---
PT AWAKE AND ALERT FOR VITALS REPEAT LACTIC DRAWN AND SENT TO LAB BY NAA. CIWA 0.
--- NOTE | 2017-04-29 16:31 | NUR ---
D5W 1/2 NS INFUSING AT 75 ML/HR PER ORDER. PHARMACY CALLED FOR 1700 MEDS.
--- NOTE | 2017-04-29 17:32 | NUR ---
FS 95, PT SITTING UP AWAKE ALERT AND ORIENTED EATING AT THIS TIME
--- NOTE | 2017-04-29 18:23 | NUR ---
MAG SULFATE 1 GRAM INFUSING AT 25ML/HR. PT INC OF STOOL ON STRETCHER, ASSISTED UP TO COMMODE AT THIS TIME
--- NOTE | 2017-04-29 19:01 | NUR ---
PT HAD LARGE BM ON COMMODE
--- NOTE | 2017-04-29 20:06 | NUR ---
PAGER [phone] PAGED REGARDING CRITICAL POTASSIUM RESULT.
--- NOTE | 2017-04-29 20:17 | NUR ---
PER MOB PAGE [phone] REGARDING CRITICAL POTASSIUM. [phone] PAGED, AWAITING CALL.
--- NOTE | 2017-04-29 20:28 | NUR ---
MD HOWELL RETURNED CALL. CRITICAL POTASSIUM RELAYED TO YANNA.
--- NOTE | 2017-04-29 20:29 | NUR ---
CRITICAL TEST RESULTS [id number] SRIRAM GILL 42 Mario TESTS AND RESULTS: POTASSIUM 2.8 Results received and read back by: CHRISTIAN WU Results received date and time: 04/29/172028 The following provider was notified of the results, and read the results back: MD HOWELL Notified date and time: 04/29/17 at 2030
--- NOTE | 2017-04-29 21:55 | NUR ---
PT GOING TO ROOM 179-2
--- NOTE | 2017-04-29 22:25 | NUR ---
REPORT GIVEN TO CASSIUS CARVALOH ON TELEMETRY.
--- NOTE | 2017-04-29 22:36 | Cons- Nephrology ---
General Information and HPI Consulting Request Date of Consult: 04/29/17 Requested By: SANDY MANNING MD Reason for Consult: Electrolyte imbalance History of Present Illness: I have been asked to see this 42yo man b/o multiple electrolyte abnormalities. He has a past history that includes NIDDM, resection and RT for a frontal meningioma, post op DVT with pulm embolism (-->IVC filter + AC), and chronic alcohol abuse complicated by hepatic steatosis, episodes of DT's and multiple failed detox efforts. He consumes between 1.5 and 2L of vodka daily and also likely has an opioid dependence (back and hip pains). He ran out of his analgesic Rx about 1wk ago and his last drink of vodka was yesterday. He now comes in with a <1day h/o pernicious vomiting (no diarrhea), paresthesias and cramping of his extremities suggestive of carpopedal spasm, and is found to have a low serum Na, low K, low mag, high serum CO2. low Bun and creatinine with normal Ck level, mildly elevated LFT's, lactic acid of 9.6-->2.6. No phosphate level done. PMH positive as noted above. 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 Outpt meds: see below. Allergies: NKDA FH: + for alcoholism in his father and paternal uncle (cirrhosis, ), - for kidney disease. SH: Never , unemployed, lives with parents and brothers, 20 yr h/o alcohol abuse with DT's and unsuccessful detox efforts, former smoker, denies illicit drugs but admits to at least 1 episode of IV drug use many years ago. Allergies/Medications Allergies: Coded Allergies: cat dander (CANT BREATHE PER PT 03/23/17) Home Med List: Docusate Sodium (Colace) 100 MG CAPSULE 1 CAP PO DAILY PRN CONSTIPATION Folic Acid 1 MG TABLET 1 TAB PO DAILY SUPPLEMENT (Reported) Gabapentin 300 MG CAPSULE 1 CAP PO TID NERVE PAIN (Reported) Levetiracetam (Keppra) 750 MG TABLET 1 TAB PO BID SEIZURES (Reported) Lidocaine 5 % ADH..PATCH 1 PAT TOP DAILY PAIN (Reported) Metformin HCl 500 MG TABLET 1 TAB PO BID DM (Reported) Ondansetron (Zofran Odt) 4 MG TAB.RAPDIS 1 TAB SL TID PRN nausea Oxycodone HCl 10 MG TABLET 1 TAB PO TID PRN Pain (Reported) Oxycodone HCl 10 MG TABLET 1 TAB PO TID PRN pain Trazodone HCl 100 MG TABLET 1 TAB PO QPM SLEEP (Reported) Warfarin Sodium (Coumadin) (Unknown Strength) TABLET 2.5 MG PO 1700 BLOOD THINNER (Reported) Review of Systems Review of Systems Constitutional: Reports: see HPI, weakness. EENTM: Reports: throat pain. Cardiovascular: Reports: no symptoms. Respiratory: Reports: no symptoms. GI: Reports: see HPI, abdominal pain, nausea, vomiting. Genitourinary: Reports: no symptoms. Musculoskeletal: Reports: back pain, joint pain. Skin: Reports: no symptoms. Neurological/Psychological: Reports: anxiety, confusion, emotional problems, tingling, tremors. Hematologic/Endocrine: Reports: no symptoms. Immunologic/Allergic: Reports: no symptoms. All Other Systems: Reviewed and Negative Past History Travel History Traveled to [place] past 21 day No Medical History Neurological: seizure, Meningioma EENT: NONE Cardiovascular: NONE Respiratory: PULM EMBOLUS Gastrointestinal: NONE Hepatic: NONE Renal: NONE Musculoskeletal: BACK PAIN, BILAT NECROCTI HIPS Psychiatric: ETOH USE Endocrine: NIDDM Blood Disorders: DVT Cancer(s): NONE BLIND EYELETTER/Reproductive: NONE Surgical History Surgical History: Brain lesion rescection Psychosocial History Where Do You Live? Home Who Do You Live With? 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 Exam & Diagnostic Data Vital Signs and I&O Vital Signs Date Time Temp Pulse Resp B/P B/P Pulse O2 O2 Flow FiO2 Mean Ox Delivery Rate 04/29 2241 97.8 112 18 132/97 96 Room Air 04/29 2239 97.8 112 18 132/97 96 Room Air 04/29 2134 97.3 108 18 124/85 04/29 2121 97.3 108 18 124/85 04/29 2121 97.3 108 18 124/85 97 Room Air 04/29 1834 97.5 92 18 122/70 04/29 1736 97.9 98 20 127/79 96 Nasal 2.0L Cannula 04/29 173 97.9 98 20 127/79 04/29 1611 97.1 85 20 107/64 04/29 1610 97.1 85 20 107/64 98 Room Air 04/29 1459 96.7 96 16 127/84 14 1457 96.7 96 16 127/84 98 Nasal 2.0L Cannula 04/29 1358 98.9 99 20 104/68 96 Nasal 2.0L Cannula 04/29 1329 98.9 99 20 104/68 14 1257 97.6 94 16 112/72 04/29 1256 97.4 94 16 112/72 98 Nasal 2.0L Cannula 04/29 1219 97.6 101 20 102/63 04/29 1155 97.6 101 20 102/63 14 1150 97.6 101 20 102/63 96 Room Air 04/29 1056 97.0 112 20 133/96 90 Room Air 04/29 1055 98.6 112 20 133/96 04/29 1017 102 15 117/72 98 04/29 1000 98.2 102 18 117/72 96 Room Air 04/29 0917 102 15 117/72 04/29 0854 106 19 125/78 98 Nasal 2.0L Cannula 04/29 0823 106 16 143/93 100 Nasal 2.0L Cannula 04/29 0815 103 15 143/93 04/29 0715 98.0 107 15 136/79 04/29 0713 107 15 136/79 98 Room Air 04/29 0644 Room Air 04/29 0633 97.5 127 22 136/91 98 Room Air Intake & Output 04/29 1600 04/29 0400 04/28 1600 04/28 0400 04/27 1600 04/27 0400 Intake Total 4500 Output Total 1340 Balance 3160 Intake, IV 4400 Intake, Oral 100 Output, Urine 1340 Patient 220 lb Weight Weight Reported by Patient Measurement Method Physical Exam: General: Well-developed white male anxious but in no acute distress Skin: No rash or jaundice HEENT: Conjunctivae pale, sclerae mildly icteric, mucous membranes dry Neck: Without masses, no supraclavicular or cervical adenopathy Chest: Clear anterolaterally Heart: Regular rate and rhythm without S3 or rub Abdomen: Soft with mild diffuse superficial tenderness without palpable masses or organomegaly Extremities: Without cyanosis or edema, pedal pulses intact with well perfused toes Neuro: No focal findings, + coarse tremor without asterixis or myoclonus; no inducible carpopedal spasm Assessment/Plan Assessment/Recommendations Assessment: 42 yo man with multiple comorbidities as enumerated above, including chronic alcoholism and possible opioid dependence, now comes in with <1 day of severe vomiting with paresthesias, carpopedal spasm and multiple electrolyte abnormalities, mildly elevated LFT's and an elevated lactate level which is rapidly resolving. I believe there is a significant element of volume contraction based on the clinical presentation as well as the hemoconcentrated Hgb and albumin values. The low Bun and creat levels likely represent underlying malnutrition. There is no clinical evidence for GI bleeding or rhabdo, and his mildly elevated LFT's may be secondary to hepatic underperfusion and/or early alcoholic hepatitis. I favor the former. With re to his electrolytes, the low Na is secondary to volume depletion but another etiology cannot as yet be ruled out. That possibility can be pursued if his Na does not correct witn volume expansion.The low K and mag levels are a result of vomiting plus poor dietary intake, with the relatively high serum CO2 due to volume contraction. Parenthetically, the combimation of severe hypokalemia, hypomagnesemia and alkalemia (metabolic alkalosis due to vomiting and contraction; respiratory alkalosis secondary to escalating anxiety) explains the development of paresthesias and carpopedal spasm. Finally, hypophosphatemia needs to be looked for, especially after IV dextrose infusion. Recommendations: 1. Check serum phos level today and then daily 2. Runs of MagSulfate 2gms q4-6 hrs until serum mg++ wnl 3. He is is deficient in K by several hundred mEq's. Suggest IV NS with 40 KCL/ L at 100-125cc/hr today and reassess tonight and in a.m. 4. Follow lytes, LFT's, Ca, phos, Mg, cbc 5. DT precautions 6. Pulmonary opinion re need for continuing detention anticoagulation in this pt with a significant risk for bleeding Thank you. We will follow with you.
--- NOTE | 2017-04-30 07:39 | PN- Housestaff ---
Subjective Follow-up For: Hyponatremia Hypokalemia Hypomagnesemia hypophosphatemia Complaints: no complaints Subjective: Patient remained afebrile overnight. He was feeling better and was having his breakfast Review of Systems Constitutional: Denies: chills, fever. Cardiovascular: Denies: chest pain, palpitations. Respiratory: Denies: cough, short of breath. Gastrointestinal: Denies: abdominal pain, nausea, vomiting. Genitourinary: Denies: dysuria. Objective Last 24 Hrs of Vital Signs/I&O Vital Signs Date Time Temp Pulse Resp B/P B/P Pulse O2 O2 Flow FiO2 Mean Ox Delivery Rate 04/30 0800 98.9 104 18 134/84 94 Room Air 04/30 0000 Room Air 04/29 2359 99.2 104 18 128/90 96 Room Air 04/29 2241 97.8 112 18 132/97 96 Room Air 04/29 2239 97.8 112 18 132/97 96 Room Air 04/29 2134 97.3 108 18 124/85 04/29 2121 97.3 108 18 124/85 04/29 2121 97.3 108 18 124/85 97 Room Air 04/29 1834 97.5 92 18 122/70 04/29 1736 97.9 98 20 127/79 96 Nasal 2.0L Cannula 04/29 1733 97.9 98 20 127/79 04/29 1611 97.1 85 20 107/64 04/29 1610 97.1 85 20 107/64 98 Room Air Intake & Output 04/30 1600 04/30 0800 04/30 0000 Intake Total 600 1190 1000 Output Total 400 550 Balance 600 790 450 Intake, IV 950 1000 Intake, Oral 600 240 Number 1 1 1 Bowel Movements Output, Urine 400 550 Patient 220 lb Weight Physical Exam General Appearance: Alert, Oriented X3, Cooperative, No Acute Distress Skin: No Rashes HEENT: Atraumatic, PERRLA Cardiovascular: Regular Rate, Normal S1, Normal S2, No Murmurs Lungs: Clear to Auscultation, Normal Air Movement Abdomen: Normal Bowel Sounds, Soft, No Tenderness Extremities: No Edema Current Medications: Current Medications Sig/Diane Start time Last Medication Dose Route Stop Time Status Admin Cyanocobalamin/ 1 BAG DAILY 04/29 1000 AC 04/30 Thiamine/Pyridoxine IV 1050 Dextrose/Water 1,000 ML Dextrose/Sodium 1,000 ML Q13H 04/29 1630 DC 04/29 Chloride IV 04/30 0529 1629 Docusate Sodium 100 MG DAILY PRN 04/29 0945 AC PO Gabapentin 0 .STK-MED ONE 04/29 2233 DC PO Gabapentin 0 .STK-MED ONE 04/29 1612 DC PO Gabapentin 300 MG TID 04/29 1000 AC 04/30 PO 0851 Levetiracetam 0 .STK-MED ONE 04/29 2234 DC PO Levetiracetam 750 MG BID 04/29 1000 AC 04/30 PO 1228 Lorazepam 0 .STK-MED ONE 04/29 2234 DC PO Lorazepam 0 .STK-MED ONE 04/29 1745 DC .ROUTE Lorazepam 1 MG Q1P PRN 04/29 0915 AC 04/30 IV 1228 Lorazepam 1 MG Q4P PRN 04/29 0915 AC 04/30 IV 0851 Magnesium Chloride 64 MG BID 04/29 2045 AC 04/30 PO 1228 Magnesium Sulfate 1 GM Q2H 04/30 0600 DC 04/30 Dextrose/Water 100 ML IV 04/30 0959 0805 Magnesium Sulfate 1 GM Q2H 04/29 2230 DC 04/30 Dextrose/Water 100 ML IV 04/30 0229 0211 Magnesium Sulfate 1 GM ONCE ONE 04/29 1745 DC 04/29 Dextrose/Water 100 ML IV 04/29 2144 1815 Morphine Sulfate 1 MG Q4P PRN 04/29 1630 AC 04/30 IV 1050 Morphine Sulfate 2 MG Q4P PRN 04/29 0915 DC IV Patient Medication 1 ED .STK-MED ONE 04/30 1356 DC Teaching ED 04/30 1357 Potassium Chloride 40 MEQ Q10H 04/30 0315 DC 04/30 Sodium Chloride 1,000 ML IV 04/30 1314 0328 Potassium Chloride 0 .STK-MED ONE 04/29 2102 DC PO Potassium Chloride 40 MEQ BID 04/29 2045 AC 04/30 PO 0852 Potassium Chloride 40 MEQ ONCE ONE 04/29 1745 DC 04/29 PO 04/29 1746 1741 Potassium Chloride 0 .STK-MED ONE 04/29 1745 DC PO Potassium Chloride 40 MEQ BID 04/29 1023 DC 04/30 PO 04/29 2201 0021 Tramadol HCl 50 MG Q6P PRN 04/29 0915 AC PO Trazodone HCl 0 .STK-MED ONE 04/29 223 DC PO Trazodone HCl 100 MG QPM 04/29 2200 AC 04/29 PO 2238 Trimethobenzamide HCl 200 MG 4 TIMES/DAY PRN 04/29 0915 AC IM Warfarin Sodium 2.5 MG COUMADIN 1700 ONE 04/29 1700 DC 04/29 PO 04/29 1701 1705 Last 24 Hrs of Lab/Osorio Results Last 24 Hrs of Labs/Mics: Laboratory Tests 04/30/17 0702: Anion Gap 9, Estimated GFR > 60, BUN/Creatinine Ratio 15.0, Phosphorus 2.4 L, Magnesium 2.0, PT 12.3, INR 1.17, CBC w Diff NO MAN DIFF REQ, RBC 3.55 L, MCV 99.3 H, MCH 33.8 H, RDW 16.7 H, MPV 8.4, Gran % 62.9, Lymphocytes % 20.7, Monocytes % 15.4 H, Eosinophils % 0.3, Basophils % 0.7, Absolute Granulocytes 3.1, Absolute Lymphocytes 1.0 L, Absolute Monocytes 0.8 H, Absolute Eosinophils 0, Absolute Basophils 0, PUBS MCHC 34.1 04/30/17 0110: Anion Gap 12, Estimated GFR > 60, BUN/Creatinine Ratio 15.7, Magnesium 1.7 04/29/17 1920: Anion Gap 10, Estimated GFR > 60, BUN/Creatinine Ratio 16.7, Phosphorus 2.1 L, Magnesium 1.5 L, Troponin I 0.06 04/29/17 1609: Lactic Acid 1.5 Lines/Diet/Fluids Fluids/Infusions: BANANA BAG Lines: peripheral lines Restraints: none Assessment/Plan Assessment: 42-year-old man with past medical history significant for brain tumor status post resection, seizures on Keppra, PE in 2013 on Coumadin, diabetes mellitus with peripheral neuropathy, anxiety and depression, chronic back pain, degenerative changes and 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 Patient was admitted on telemetry so for the management of following problems Hypokalemia/hypomagnesemia Likely secondary to poor by mouth intake and malnutrition secondary to alcohol dependence We will repeat electrolytes appropriately Hypernatremia Most likely secondary to the beer potomania vs volume contraction. Current Sodium 134, improved approprietly with IVF. History of PE continue Coumadin, adjust dose according to INR Alcohol dependence - Vitals Q Shift - Give PRN IV Ativan. - CIWA Protocol - Banana Bag - Replete Lytes - Give Multivitamins, B12 and Folate - Psychiatry consult - Social work consult Chronic back pain Pain management pathway Adequate bowel regimen for narcotic induced constipation Patient is full code Patient is on diabetic diet Patient is on Accu-Cheks Patient is on Coumadin for DVT prophylaxis Patient is on pain management Problem List: 1. Alcohol dependence 2. Hypokalemia 3. Hyponatremia syndrome 4. Hypomagnesemia Pain Ratin Pain Location: na Pain Goal: Pain 4 or less Pain Plan: Continue current pain medications Tomorrow's Labs & Rationales: BEP and electrolytes for significant electrolyte abnormalities CBC for anemia
[2017-04-30 08:00] VITALS: BP 134/84
[2017-04-30 08:20] LABS: ABSOLUTE BASOPHIL COUNT 0 /CUMM (0.0-0.2); ABSOLUTE EOSINOPHIL COUNT 0 /CUMM (0.0-0.7); ABSOLUTE MONOCYTE COUNT 0.8 /CUMM (0.10-0.60)
[2017-04-30 09:03] LABS: ABSOLUTE GRANULOCYTE CT 3.1 /CUMM (1.4-6.5); BASOPHIL % 0.7 % (0.0-2.0); EOSINOPHIL % 0.3 % (0-5); GRANULOCYTE % 62.9 % (42.2-75.2); MEAN CORPUSCULAR HGB 33.8 PG (27.0-31.0); MEAN CORPUSCULAR HGB CONC 34.1 G/DL (33.0-37.0); MEAN CORPUSCULAR VOLUME 99.3 FL (80.0-94.0); MEAN PLATELET VOLUME 8.4 FL (7.4-10.4); PLATELET COUNT 137 /CUMM (130-400); RBC DISTRIBUTION WIDTH 16.7 % (11.5-14.5); RED BLOOD CELL CT 3.55 /CUMM (4.70-6.10); WHITE BLOOD CELL COUNT 4.9 /CUMM (4.8-10.8)
[2017-04-30 09:22] LABS: PT 12.3 SEC (9.4-12.5)
[2017-04-30 09:26] LABS: HEMATOCRIT 35.3 % (42-52)
--- NOTE | 2017-04-30 09:36 | PN- Nephrology ---
Assessment/Plan Assessment: Mr. Rowe is a 42 year old gentleman with a past medical history of NIDDM, a right frontal lobe brain mass which was diagnosed as a meningioma in 2014 status post resection and radiation therapy, a/w seizure d/o (on keppra), with subsequent DVT/pulmonary embolism in 2013, status post IVC filter placement, currently on Coumadin for anticoagulation, who presents to [facility] emergency department with complaints of nausea, vomiting and paresthesias. Problem List 1. Electrolyte imbalance - Hyponatremia/Hypokalemia/Hypomagnesemia 2. Hx of PE s/p IVC filter, on coumadin 3. Alcohol Abuse with hx of DTs Suggestion: 1. Electrolyte Imbalanace * His electrolytes are correcting quite nicely. His sodium this morning is 134, potassium 3.3, magnesium 2.0 and phosphorus 2.4. He is still slightly alkalotic with a bicarbonate of 29. BUN/Cr WNL. * Continue NS and K/Mg supplementation. Please continue to measure BEP daily. Please also add on Mg and P to evaluate Mg levels and monitor for refeeding syndrome. 2. Hx of PE s/p IVC filter, on coumadin * INR therapeutic. Pulm consult pending regarding assessment of continued need of AC. 3. Alcohol Abuse with hx of DTs * On CIWA protocol and ativan. Detox well controlled at the moment with stable vitals and no significant withdrawal symptoms. * Psych consult pending. Subjective Subjective: Mr. Rowe states he is doing much better today. In fact, at the time of the interview, he was enjoying breakfast. He tolerated it well and denies any more odynophagia. He also states that his paresthesias and spasms have resolved, although he does appear a little jittery. Review of Systems: He denies any more carpopedal spasms as noted above. He also denies any more episode of n/v. He denies any chest pain, dyspnea, palpitations, lightheadedness, dizziness, diplopia or tinnitus. He also denies any fevers, chills, diaphoresis, as well as diarrhea. Objective Vital Signs and I&Os Vital Signs Date Time Temp Pulse Resp B/P B/P Pulse O2 O2 Flow FiO2 Mean Ox Delivery Rate 04/30 0800 98.9 104 18 134/84 94 Room Air 04/30 0000 Room Air 04/29 2359 99.2 104 18 128/90 96 Room Air 04/29 2241 97.8 112 18 132/97 96 Room Air 04/29 2239 97.8 112 18 132/97 96 Room Air 04/29 2134 97.3 108 18 124/85 04/29 2121 97.3 108 18 124/85 04/29 2121 97.3 108 18 124/85 97 Room Air 04/29 1834 97.5 92 18 122/70 04/29 1736 97.9 98 20 127/79 96 Nasal 2.0L Cannula 04/29 1733 97.9 98 20 127/79 04/29 1611 97.1 85 20 107/64 04/29 1610 97.1 85 20 107/64 98 Room Air 04/29 1459 96.7 96 16 127/84 04/29 1457 96.7 96 16 127/84 98 Nasal 2.0L Cannula 04/29 1358 98.9 99 20 104/68 96 Nasal 2.0L Cannula 04/29 1329 98.9 99 20 104/68 04/29 1257 97.6 94 16 112/72 04/29 1256 97.4 94 16 112/72 98 Nasal 2.0L Cannula 04/29 1219 97.6 101 20 102/63 04/29 1155 97.6 101 20 102/63 04/29 1150 97.6 101 20 102/63 96 Room Air 04/29 1056 97.0 112 20 133/96 90 Room Air 04/29 1055 98.6 112 20 133/96 04/29 1017 102 15 117/72 98 04/29 1000 98.2 102 18 117/72 96 Room Air 04/29 0917 102 15 117/72 Intake & Output 04/30 1600 04/30 0400 04/29 1600 04/29 0400 04/28 1600 04/28 0400 Intake Total 1190 1000 4500 Output Total 166 821 1384 Balance 071 968 8529 Intake, IV 950 1000 4400 Intake, Oral 240 100 Number 1 1 Bowel Movements Output, Urine 050 513 4906 Patient 99.79 kg Weight Weight Reported by Patient Measurement Method Current Medications: Current Medications Sig/Diane Start time Last Medication Dose Route Stop Time Status Admin Cyanocobalamin/ 1 BAG DAILY 04/29 1000 AC 04/29 Thiamine/Pyridoxine IV 1015 Dextrose/Water 1,000 ML Dextrose/Sodium 1,000 ML Q13H 04/29 1630 DC 04/29 Chloride IV 04/30 0529 1629 Docusate Sodium 100 MG DAILY PRN 04/29 0945 AC PO Gabapentin 0 .STK-MED ONE 04/29 2233 DC PO Gabapentin 0 .STK-MED ONE 04/29 1612 DC PO Gabapentin 0 .STK-MED ONE 04/29 1013 DC PO Gabapentin 300 MG TID 04/29 1000 AC 04/30 PO 0851 Insulin Aspart 0 TIDAC 04/29 1200 DC SC Levetiracetam 0 .STK-MED ONE 04/29 2234 DC PO Levetiracetam 750 MG BID 04/29 1000 AC 04/29 PO 2238 Lorazepam 0 .STK-MED ONE 04/29 2234 DC PO Lorazepam 0 .STK-MED ONE 04/29 1745 DC .ROUTE Lorazepam 0 .STK-MED ONE 04/29 1338 DC .ROUTE Lorazepam 1 MG Q1P PRN 04/29 0915 AC 04/29 IV 2238 Lorazepam 1 MG Q4P PRN 04/29 0915 AC 04/30 IV 0851 Magnesium Chloride 64 MG BID 04/29 2045 AC 04/29 PO 2112 Magnesium Sulfate 1 GM Q2H 04/30 0600 AC 04/30 Dextrose/Water 100 ML IV 04/30 0959 0805 Magnesium Sulfate 1 GM Q2H 04/29 2230 DC 04/30 Dextrose/Water 100 ML IV 04/30 0229 0211 Magnesium Sulfate 1 GM ONCE ONE 04/29 1745 DC 04/29 Dextrose/Water 100 ML IV 04/29 2144 1815 Magnesium Sulfate 1 GM Q2H 04/29 0815 DC 04/29 Dextrose/Water 100 ML IV 04/29 1214 0910 Morphine Sulfate 1 MG Q4P PRN 04/29 1630 AC 04/30 IV 0554 Morphine Sulfate 2 MG Q4P PRN 04/29 0915 DC IV Potassium Chloride 40 MEQ Q10H 04/30 0315 AC 04/30 Sodium Chloride 1,000 ML IV 04/30 1314 0328 Potassium Chloride 0 .STK-MED ONE 04/29 2102 DC PO Potassium Chloride 40 MEQ BID 04/29 2045 AC 04/30 PO 0852 Potassium Chloride 40 MEQ ONCE ONE 04/29 1745 DC 04/29 PO 04/29 1746 1741 Potassium Chloride 0 .STK-MED ONE 04/29 1745 DC PO Potassium Chloride 20 MEQ ONCE ONE 04/29 1115 DC 04/29 PO 04/29 1116 1120 Potassium Chloride 0 .STK-MED ONE 04/29 1046 DC PO Potassium Chloride 10 MEQ ONCE ONE 04/29 1030 DC 04/29 IV 04/29 1031 1052 Potassium Chloride 10 MEQ ONCE ONE 04/29 1030 CAN IV 04/29 1031 Potassium Chloride 20 MEQ ONCE ONE 04/29 1030 CAN PO 04/29 1031 Potassium Chloride 40 MEQ BID 04/29 1023 DC 04/30 PO 04/29 2201 0021 Tramadol HCl 50 MG Q6P PRN 04/29 0915 AC PO Trazodone HCl 0 .STK-MED ONE 04/29 2234 DC PO Trazodone HCl 100 MG QPM 04/29 2200 AC 04/29 PO 2238 Trimethobenzamide HCl 200 MG 4 TIMES/DAY PRN 04/29 0915 AC IM Warfarin Sodium 2.5 MG COUMADIN 1700 ONE 04/29 1700 DC 04/29 PO 04/29 1701 1705 Results Pertinent Lab Results: Laboratory Tests 04/30 04/30 04/29 04/29 04/29 0702 0110 1920 1609 1311 Chemistry Sodium (137 - 145 mmol/L) 134 L 135 L 130 L 130 L Potassium (3.5 - 5.1 mmol/L) 3.3 L 3.6 2.8 *L 3.1 L Chloride (98 - 107 mmol/L) 96 L 92 L 90 L 89 L Carbon Dioxide (22 - 30 mmol/L) 29 30 31 H 31 H Anion Gap (5 - 16) 9 12 10 10 BUN (9 - 20 mg/dL) 9 11 10 8 L Creatinine (0.7 - 1.2 mg/dL) 0.6 L 0.7 0.6 L 0.6 L Estimated GFR (>60 ml/min) > 60 > 60 > 60 > 60 BUN/Creatinine Ratio (7 - 25 %) 15.0 15.7 16.7 13.3 Lactic Acid (0.7 - 2.1 mmol/L) 1.5 Phosphorus (2.5 - 4.5 mg/dL) 2.4 L 2.1 L Magnesium (1.6 - 2.3 mg/dL) 2.0 1.7 1.5 L Troponin I (<0.11 ng/ml) 0.06 0.08 Coagulation PT Pending INR Pending Hematology CBC w Diff Pending WBC Pending RBC Pending Hgb Pending Hct Pending MCV Pending MCH Pending RDW Pending Plt Count Pending MPV Pending PUBS MCHC Pending 04/29 04/29 04/29 0931 0931 0754 Chemistry Sodium (137 - 145 mmol/L) 132 L Potassium (3.5 - 5.1 mmol/L) 2.4 *L Chloride (98 - 107 mmol/L) 90 L Carbon Dioxide (22 - 30 mmol/L) 29 Anion Gap (5 - 16) 13 BUN (9 - 20 mg/dL) 8 L Creatinine (0.7 - 1.2 mg/dL) 0.6 L Estimated GFR (>60 ml/min) > 60 BUN/Creatinine Ratio (7 - 25 %) 13.3 Lactic Acid (0.7 - 2.1 mmol/L) 2.6 H Magnesium (1.6 - 2.3 mg/dL) 1.3 L Urines Urinalysis MOD H Urine Color (YEL,AMB,STR) YEL Urine Clarity (CLEAR) CLEAR Urine pH (5.0 - 8.0) 6.5 Ur Specific [place] (1.001 - 1.035) <= 1.005 Urine Protein (NEG,<30 MG/DL) TRACE H Urine Ketones (NEG) NEG Urine Nitrite (NEG) NEG Urine Bilirubin (NEG) NEG Urine Urobilinogen (0.1 - 1.0 EU/dl) 4.0 H Ur Leukocyte Esterase (NEG) NEG Ur Microscopic SEDIMENT EXAMINED Urine RBC (0 - 5 /HPF) 1-3 Urine WBC (0 - 2 /HPF) 1-3 H Ur Epithelial Cells (NONE,FEW) RARE Urine Bacteria (NEG/NONE) FEW H Urine Mucus (FEW,NONE) RARE Urine Hemoglobin (NEG) TRACE-INTACT H Urine Glucose (N MG/DL) NEG 04/29 04/29 04/29 0754 0635 0635 Chemistry Sodium (137 - 145 mmol/L) 126 L Potassium (3.5 - 5.1 mmol/L) 2.5 *L Chloride (98 - 107 mmol/L) 76 L Carbon Dioxide (22 - 30 mmol/L) 25 Anion Gap (5 - 16) 25 H BUN (9 - 20 mg/dL) 10 Creatinine (0.7 - 1.2 mg/dL) 0.7 Estimated GFR (>60 ml/min) > 60 BUN/Creatinine Ratio (7 - 25 %) 14.3 Glucose (65 - 99 mg/dL) 131 H Serum Osmolality (285 - 295 MOSM/KG) 270 L Lactic Acid (0.7 - 2.1 mmol/L) 9.6 H Calcium (8.4 - 10.2 mg/dL) 8.5 Magnesium (1.6 - 2.3 mg/dL) 0.8 *L Total Bilirubin (0.2 - 1.3 mg/dL) 3.8 H AST (17 - 59 U/L) 189 H ALT (21 - 72 U/L) 117 H Alkaline Phosphatase (< 127 U/L) 145 H Creatine Kinase (55 - 170 U/L) 108 Troponin I (<0.11 ng/ml) 0.09 Total Protein (6.3 - 8.2 g/dL) 7.5 Albumin (3.5 - 5.0 g/dL) 4.5 Globulin (1.9 - 4.2 gm/dL) 3.0 Albumin/Globulin Ratio (1.1 - 2.2 %) 1.5 Amylase (30 - 110 U/L) 68 Lipase (23 - 300 U/L) 238 Coagulation PT (9.4 - 12.5 SEC) 15.8 H INR (0.90 - 1.17) 1.51 H APTT (25 - 37 SEC) 27 Hematology CBC w Diff NO MAN DIFF REQ WBC (4.8 - 10.8 /CUMM) 9.2 RBC (4.70 - 6.10 /CUMM) 4.69 L Hgb (14.0 - 18.0 G/DL) 15.6 Hct (42 - 52 %) 46.1 MCV (80.0 - 94.0 FL) 98.3 H MCH (27.0 - 31.0 PG) 33.3 H RDW (11.5 - 14.5 %) 16.5 H Plt Count (130 - 400 /CUMM) 195 MPV (7.4 - 10.4 FL) 8.1 Gran % (42.2 - 75.2 %) 68.3 Lymphocytes % (20.5 - 51.1 %) 17.4 L Monocytes % (1.7 - 9.3 %) 13.5 H Eosinophils % (0 - 5 %) 0 Basophils % (0.0 - 2.0 %) 0.8 Absolute Granulocytes (1.4 - 6.5 /CUMM) 6.3 Absolute Lymphocytes (1.2 - 3.4 /CUMM) 1.6 Absolute Monocytes (0.10 - 0.60 /CUMM) 1.2 H Absolute Eosinophils (0.0 - 0.7 /CUMM) 0 Absolute Basophils (0.0 - 0.2 /CUMM) 0.1 PUBS MCHC (33.0 - 37.0 G/DL) 33.9 Toxicology Urine Opiates Screen (>2000 NG/ML) < 100.00 Methadone Screen (>300 NG/ML) < 40 Barbiturate Screen (>200 NG/ML) < 60 Ur Phencyclidine Scrn (>25 NG/ML) < 6.00 Amphetamines Screen (>1000 NG/ML) < 100 U Benzodiazepines Scrn (>200 NG/ML) < 85 Urine Cocaine Screen (>300 NG/ML) < 50 Urine Cannabis Screen (>50 NG/ML) 6.20 Serum Alcohol (<10 MG/DL) < 10.0 Urines Urine Osmolality (300 - 1000 MOSM/KG) 239 L Ur Random Creatinine (mg/dL) 66.7 Ur Random Sodium (30 - 90 mmol/L) 40 Ur Random Potassium (mmol/L) 16.4 Fraction Sodium Excret (<1% %) 0.3
--- NOTE | 2017-04-30 11:50 | PN- Att Addend ---
Attending Addendum Attending Brief Note Patient feeling better this morning, was able to tolerate breakfast. Complaining of less cramps and spasms with his vital signs are stable no fever, still a little shaky. Appreciate nephrology's input and recommendations , his blood work is improved today. We'll continue nephrology's recommendations and follow-up the blood work closely. Eventually again get a PT evaluation and see if the patient needs any short-term rehabilitation again. Also will check with pulmonary to see if the patient can come off anticoagulation. 24 TOTALS 04/30 0000 04/29 0000 Intake Total 5500 Output Total 1890 Balance 3610 Intake, IV 5400 Intake, Oral 100 Number 1 Bowel Movements Output, Urine 1890 Patient 220 lb Weight Weight Reported by Patient Measurement Method Current Medications Sig/Diane Start time Last Medication Dose Route Stop Time Status Admin Cyanocobalamin/ 1 BAG DAILY 04/29 1000 AC 04/30 Thiamine/Pyridoxine IV 1050 Dextrose/Water 1,000 ML Dextrose/Sodium 1,000 ML Q13H 04/29 1630 DC 04/29 Chloride IV 04/30 0529 1629 Docusate Sodium 100 MG DAILY PRN 04/29 0945 AC PO Gabapentin 0 .STK-MED ONE 04/29 2233 DC PO Gabapentin 0 .STK-MED ONE 04/29 1612 DC PO Gabapentin 300 MG TID 04/29 1000 AC 04/30 PO 0851 Insulin Aspart 0 TIDAC 04/29 1200 DC SC Levetiracetam 0 .STK-MED ONE 04/29 2234 DC PO Levetiracetam 750 MG BID 04/29 1000 AC 04/29 PO 2238 Lorazepam 0 .STK-MED ONE 04/29 2234 DC PO Lorazepam 0 .STK-MED ONE 04/29 1745 DC .ROUTE Lorazepam 0 .STK-MED ONE 04/29 1338 DC .ROUTE Lorazepam 1 MG Q1P PRN 04/29 0915 AC 04/29 IV 2238 Lorazepam 1 MG Q4P PRN 04/29 0915 AC 04/30 IV 0851 Magnesium Chloride 64 MG BID 04/29 2045 AC 04/29 PO 2112 Magnesium Sulfate 1 GM Q2H 04/30 0600 DC 04/30 Dextrose/Water 100 ML IV 04/30 0959 0805 Magnesium Sulfate 1 GM Q2H 04/29 2230 DC 04/30 Dextrose/Water 100 ML IV 04/30 0229 0211 Magnesium Sulfate 1 GM ONCE ONE 04/29 1745 DC 04/29 Dextrose/Water 100 ML IV 04/29 2144 1815 Magnesium Sulfate 1 GM Q2H 04/29 0815 DC 04/29 Dextrose/Water 100 ML IV 04/29 1214 0910 Morphine Sulfate 1 MG Q4P PRN 04/29 1630 AC 04/30 IV 1050 Morphine Sulfate 2 MG Q4P PRN 04/29 0915 DC IV Potassium Chloride 40 MEQ Q10H 04/30 0315 AC 04/30 Sodium Chloride 1,000 ML IV 04/30 1314 0328 Potassium Chloride 0 .STK-MED ONE 04/29 2102 DC PO Potassium Chloride 40 MEQ BID 04/29 2045 AC 04/30 PO 0852 Potassium Chloride 40 MEQ ONCE ONE 04/29 1745 DC 04/29 PO 04/29 1746 1741 Potassium Chloride 0 .STK-MED ONE 04/29 1745 DC PO Potassium Chloride 40 MEQ BID 04/29 1023 DC 04/30 PO 04/29 2201 0021 Tramadol HCl 50 MG Q6P PRN 04/29 0915 AC PO Trazodone HCl 0 .STK-MED ONE 04/29 2234 DC PO Trazodone HCl 100 MG QPM 04/29 2200 AC 04/29 PO 2238 Trimethobenzamide HCl 200 MG 4 TIMES/DAY PRN 04/29 0915 AC IM Warfarin Sodium 2.5 MG COUMADIN 1700 ONE 04/29 1700 DC 04/29 PO 04/29 1701 1705 Laboratory Tests 04/30/17 0702: Anion Gap 9, Estimated GFR > 60, BUN/Creatinine Ratio 15.0, Phosphorus 2.4 L, Magnesium 2.0, PT 12.3, INR 1.17, CBC w Diff NO MAN DIFF REQ, RBC 3.55 L, MCV 99.3 H, MCH 33.8 H, RDW 16.7 H, MPV 8.4, Gran % 62.9, Lymphocytes % 20.7, Monocytes % 15.4 H, Eosinophils % 0.3, Basophils % 0.7, Absolute Granulocytes 3.1, Absolute Lymphocytes 1.0 L, Absolute Monocytes 0.8 H, Absolute Eosinophils 0, Absolute Basophils 0, PUBS MCHC 34.1 04/30/17 0110: Anion Gap 12, Estimated GFR > 60, BUN/Creatinine Ratio 15.7, Magnesium 1.7 04/29/17 1920: Anion Gap 10, Estimated GFR > 60, BUN/Creatinine Ratio 16.7, Phosphorus 2.1 L, Magnesium 1.5 L, Troponin I 0.06 04/29/17 1609: Lactic Acid 1.5 04/29/17 1311: Anion Gap 10, Estimated GFR > 60, BUN/Creatinine Ratio 13.3, Troponin I 0.08 04/29/17 0931: Lactic Acid 2.6 H 04/29/17 0931: Anion Gap 13, Estimated GFR > 60, BUN/Creatinine Ratio 13.3, Magnesium 1.3 L 04/29/17 0754: Urinalysis MOD H, Urine Color YEL, Urine Clarity CLEAR, Urine pH 6.5, Ur Specific [place] <= 1.005, Urine Protein TRACE H, Urine Ketones NEG, Urine Nitrite NEG, Urine Bilirubin NEG, Urine Urobilinogen 4.0 H, Ur Leukocyte Esterase NEG, Ur Microscopic SEDIMENT EXAMINED, Urine RBC 1-3, Urine WBC 1-3 H, Ur Epithelial Cells RARE, Urine Bacteria FEW H, Urine Mucus RARE, Urine Hemoglobin TRACE-INTACT H, Urine Glucose NEG 04/29/17 0754: Urine Opiates Screen < 100.00, Methadone Screen < 40, Barbiturate Screen < 60, Ur Phencyclidine Scrn < 6.00, Amphetamines Screen < 100, U Benzodiazepines Scrn < 85, Urine Cocaine Screen < 50, Urine Cannabis Screen 6.20, Urine Osmolality 239 L, Ur Random Creatinine 66.7, Ur Random Sodium 40, Ur Random Potassium 16.4 , Fraction Sodium Excret 0.3 04/29/17 0635: Lactic Acid 9.6 H 04/29/17 0635: Anion Gap 25 H, Estimated GFR > 60, BUN/Creatinine Ratio 14.3, Glucose 131 H, Serum Osmolality 270 L, Calcium 8.5, Magnesium 0.8 *L, Total Bilirubin 3.8 H, AST 189 H, ALT 117 H, Alkaline Phosphatase 145 H, Creatine Kinase 108, Troponin I 0.09, Total Protein 7.5, Albumin 4.5, Globulin 3.0, Albumin/Globulin Ratio 1.5, Amylase 68, Lipase 238, PT 15.8 H, INR 1.51 H, APTT 27, CBC w Diff NO MAN DIFF REQ, RBC 4.69 L, MCV 98.3 H, MCH 33.3 H, RDW 16.5 H, MPV 8.1, Gran % 68.3, Lymphocytes % 17.4 L, Monocytes % 13.5 H, Eosinophils % 0, Basophils % 0.8, Absolute Granulocytes 6.3, Absolute Lymphocytes 1.6, Absolute Monocytes 1.2 H, Absolute Eosinophils 0, Absolute Basophils 0.1, PUBS MCHC 33.9 , Serum Alcohol < 10.0
--- NOTE | 2017-04-30 12:18 | Cons- Psychiatry ---
Psychiatric Consult Date of Consult: 04/30/17 Reason for Consult: "alcohol withdrawl" Odered by Dr. Yamilex Cardoza attending History of Present Illness: Identifying Info: 42-year-old single male presents to [facility] emergency department on 04/29/2017 with anxiety weakness, and muscle spasm. Subsequently admitted to medicine for alcohol withdrawal and multiple electrolyte abnormalities. CC: "I feel a lot better than yesterday... I have never been so ill before my life" HPI: For the past month the patient reports his alcohol intake has increased with him consuming approximately 1.75 L of vodka every 2 days. 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 Reports he's been drinking in an effort to control his pain and to sleep to avoid using narcotics. States he's been using opiate pain medication since 2013 when he broke his back in a fall. About a week ago he decided he would like to abstain and subsequently went through withdrawal syndrome for a few days. Review of [facility] reveals patient had been receiving oxycodone regularly up until January of this year, no prescriptions since 03/24/17. Per the patient's mother's report is in H and P the patient has been abusing narcotics. The patient endorses a history of depression which she largely attributes to his medical problems "if I could walk again that would really help." At present he is agreeable to antidepressant medication as well as intensive outpatient aftercare program. He was educated on medications for alcohol cravings but he declines this time. PMH: Please see the H&P for a complete listing Brain tumor status post resection, seizures on Keppra, PE in 2013 on Coumadin, diabetes mellitus with peripheral neuropathy Past Psych History: Denies previous antidepressant medications but medical record shows previously prescribed mirtazapine and wellbutrin -Outpatient Referred to IOP in 2013 but it appears he did not attend after intake -Inpatient Previously evaluated by consult service at [facility] in 2011 and at [facility] stay for depression and detox in 2012 Family Psych History: Father and brother - depressed Bother - Schizophrenia Substance History Alcohol use disorder, severe -Treatment [facility] Detox 2013 Inpatient Rehab in [place] in 2011 [place] 2011 Family Substance History: Father and brothers - EtOH Social: Currently lives with parents. 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 Has not worked since 2011. Abuse/Trauma: Denies Current Home Psychotropic Medications: Trazodone 100mg QHS Current Hospital Psychotropic Medications: Med Gabapentin 300 MG PO TID 04/29/17 1000 Lorazepam 1 MG IV Q1P PRN 04/29/17 0915 Lorazepam 1 MG IV Q4P PRN 04/29/17 0915 Trazodone HCl 100 MG PO QPM 04/29/17 2200 Allergies: Coded Allergies: cat dander (CANT BREATHE PER PT 03/23/17) Past History Past Medical History Neurological: seizure, BRAIN LESIONS RIGHT FRONTAL LOBE MENINGIOMA 2014 S/P RESECTION AND RADIATION EENT: NONE Cardiovascular: NONE Respiratory: PULM EMBOLUS Gastrointestinal: NONE Hepatic: NONE Renal: NONE Musculoskeletal: degen joint disease, BACK PAIN, BILAT NECROCTI HIPS Psychiatric: ETOH USE Endocrine: NIDDM Blood Disorders: DVT Cancer(s): NONE PARISH VISITOR/Reproductive: NONE Past Surgical History Surgical History: non-contributory Psychosocial History Strengths/Capabilities: Help seeking, supportive family Physical Limitations (Interventions): Chronic illness and pain Psychiatric Treatment History Psych Treatment Psychiatric Treatment Yes (as above) Diagnosis: Alcohol use disorder, severe Unspecified mood disorder Risk Factors: chronic/serious med cond., SA/MH hospitalized, substance abuse, isolate/no social support, poor impulse control, male Substance Use/Abuse History Drug Use/Abuse Substances Used/Abused Yes (as above) Substance Abuse Treatment Substance Abuse Treatment Past Substance Abuse [place] Yes (as above) Assessment/Plan Mental Status Mental Status Exam: Mental Status Exam Presentation/Appearance: Cooperative with evaluation. [facility] garb. Orientation: x4 Sensorium: Awake and alert Eye contact: Appropriate Affect: Blunted Mood: Dysphoric Depression: Endorses Anxiety: Endorses Thought Content: - Denies SI/HI, AH/VH, PI. States and also believes they will not kill themselves. - Denies Hopeless/Helpless Thoughts Thought Process: Linear Associations: Appropriate Speech: Soft Language: Judgment: Fair Insight: Fair Cognition: Memory: Grossly intact Attention/Concentration: Grossly intact Fund of Knowledge: Adequate Abstractions:Not assessed MMSE: Did not complete Brief ROS Gait: Impaired Sleep: Adequate Appetite: Adequate Energy: Low IADLs/ADLs: With assist Lab Results: Laboratory Tests 04/30/17 0702: Anion Gap 9, Estimated GFR > 60, BUN/Creatinine Ratio 15.0, Phosphorus 2.4 L, Magnesium 2.0, PT 12.3, INR 1.17, CBC w Diff NO MAN DIFF REQ, RBC 3.55 L, MCV 99.3 H, MCH 33.8 H, RDW 16.7 H, MPV 8.4, Gran % 62.9, Lymphocytes % 20.7, Monocytes % 15.4 H, Eosinophils % 0.3, Basophils % 0.7, Absolute Granulocytes 3.1, Absolute Lymphocytes 1.0 L, Absolute Monocytes 0.8 H, Absolute Eosinophils 0, Absolute Basophils 0, PUBS MCHC 34.1 04/30/17 0110: Anion Gap 12, Estimated GFR > 60, BUN/Creatinine Ratio 15.7, Magnesium 1.7 04/29/17 1920: Anion Gap 10, Estimated GFR > 60, BUN/Creatinine Ratio 16.7, Phosphorus 2.1 L, Magnesium 1.5 L, Troponin I 0.06 04/29/17 1609: Lactic Acid 1.5 04/29/17 1311: Anion Gap 10, Estimated GFR > 60, BUN/Creatinine Ratio 13.3, Troponin I 0.08 04/29/17 0931: Lactic Acid 2.6 H 04/29/17 0931: Anion Gap 13, Estimated GFR > 60, BUN/Creatinine Ratio 13.3, Magnesium 1.3 L 04/29/17 0754: Urinalysis MOD H, Urine Color YEL, Urine Clarity CLEAR, Urine pH 6.5, Ur Specific [place] <= 1.005, Urine Protein TRACE H, Urine Ketones NEG, Urine Nitrite NEG, Urine Bilirubin NEG, Urine Urobilinogen 4.0 H, Ur Leukocyte Esterase NEG, Ur Microscopic SEDIMENT EXAMINED, Urine RBC 1-3, Urine WBC 1-3 H, Ur Epithelial Cells RARE, Urine Bacteria FEW H, Urine Mucus RARE, Urine Hemoglobin TRACE-INTACT H, Urine Glucose NEG 04/29/17 0754: Urine Opiates Screen < 100.00, Methadone Screen < 40, Barbiturate Screen < 60, Ur Phencyclidine Scrn < 6.00, Amphetamines Screen < 100, U Benzodiazepines Scrn < 85, Urine Cocaine Screen < 50, Urine Cannabis Screen 6.20, Urine Osmolality 239 L, Ur Random Creatinine 66.7, Ur Random Sodium 40, Ur Random Potassium 16.4 , Fraction Sodium Excret 0.3 04/29/17 0635: Lactic Acid 9.6 H 04/29/17 0635: Anion Gap 25 H, Estimated GFR > 60, BUN/Creatinine Ratio 14.3, Glucose 131 H, Serum Osmolality 270 L, Calcium 8.5, Magnesium 0.8 *L, Total Bilirubin 3.8 H, AST 189 H, ALT 117 H, Alkaline Phosphatase 145 H, Creatine Kinase 108, Troponin I 0.09, Total Protein 7.5, Albumin 4.5, Globulin 3.0, Albumin/Globulin Ratio 1.5, Amylase 68, Lipase 238, PT 15.8 H, INR 1.51 H, APTT 27, CBC w Diff NO MAN DIFF REQ, RBC 4.69 L, MCV 98.3 H, MCH 33.3 H, RDW 16.5 H, MPV 8.1, Gran % 68.3, Lymphocytes % 17.4 L, Monocytes % 13.5 H, Eosinophils % 0, Basophils % 0.8, Absolute Granulocytes 6.3, Absolute Lymphocytes 1.6, Absolute Monocytes 1.2 H, Absolute Eosinophils 0, Absolute Basophils 0.1, PUBS MCHC 33.9 , Serum Alcohol < 10.0 Diffential Diagnosis: Alcohol use disorder severe Unspecified mood disorder versus mood disorder due to another medical condition versus alcohol-induced mood disorder Impression: 42-year-old single male presents with mood disturbance in the context of multiple medical issues, severe alcohol abuse, and pain. All 3 are likely contributing to his current depression. Patient would benefit from therapy medication to assist with mood and substance abuse. He is agreeable to this plan. Provisional Treatment Plan: 1. An SNRI like Cymbalta or Effexor may be helpful for this patient with depression, anxiety and pain, however given hyponatremia and liver issues these should be avoided at this time. Will consider new psychotropic once medication more medically stable. This can be done on an outpatient basis. 2. Patient would benefit from residential or [facility] level of care for substance abuse issues. He cannot attend [facility] if he remains on opiates. Appreciate social work assistance in disposition planning. 3. Continue CIWA, vitamin supplementation, and Ativan with plan to taper by 20% daily. Thank you for including psychiatry in this case we will continue to follow.
--- NOTE | 2017-04-30 13:48 | PN- Nephrology ---
Assessment/Plan Assessment: 1. Hyponatremia secondary to volume contraction - improved with volume expansion 2. Hypokalemia secondary to vomiting and poor by mouth intake - improved with supplementation 3. Hypomagnesemia primarily on a dietary basis - resolved with supplementation 4. Alcohol withdrawal - no evidence for active DTs at this time Suggestion: 1. Continue IV fluids and oral potassium and magnesium supplementation 2. Monitor BMP, phosphorus and magnesium levels daily 3. Repeat LFTs 4. Psychiatry consultation Subjective Subjective: Patient is alert and oriented today, and feeling much better in general. He is concerned about his overall prognosis, his chronic pain and dependence on opioids and alcohol. Chemistries have significantly improved on current regimen. There do not appear to be any signs of overt DTs. Objective Vital Signs and I&Os Vital Signs Date Time Temp Pulse Resp B/P B/P Pulse O2 O2 Flow FiO2 Mean Ox Delivery Rate 04/30 0800 98.9 104 18 134/84 94 Room Air 04/30 0000 Room Air 04/29 2359 99.2 104 18 128/90 96 Room Air 04/29 2241 97.8 112 18 132/97 96 Room Air 04/29 2239 97.8 112 18 132/97 96 Room Air 04/29 2134 97.3 108 18 124/85 04/29 2121 97.3 108 18 124/85 04/29 2121 97.3 108 18 124/85 97 Room Air 04/29 1834 97.5 92 18 122/70 04/29 1736 97.9 98 20 127/79 96 Nasal 2.0L Cannula 04/29 1733 97.9 98 20 127/79 04/29 1611 97.1 85 20 107/64 04/29 1610 97.1 85 20 107/64 98 Room Air 04/29 1459 96.7 96 16 127/84 04/29 1457 96.7 96 16 127/84 98 Nasal 2.0L Cannula 04/29 1358 98.9 99 20 104/68 96 Nasal 2.0L Cannula Intake & Output 04/30 0400 04/29 1600 04/29 0400 04/28 1600 04/28 0400 Intake Total 1190 1000 4500 Output Total 095 936 9147 Balance 001 474 9467 Intake, IV 950 1000 4400 Intake, Oral 240 100 Number 1 1 Bowel Movements Output, Urine 856 031 9729 Patient 220 lb Weight Weight Reported by Patient Measurement Method Physical Exam: General: Well-developed, chronically ill-appearing white male in NAD Skin: No rash or jaundice HEENT: Conjunctivae pink, sclerae mildly icteric, mucous membranes moist Neck: Without masses, no supraclavicular or cervical adenopathy Chest: Clear to P&A Heart: Regular rate and rhythm without S3 or rub Abdomen: Soft and nontender without palpable masses or organomegaly Extremities: Without cyanosis or edema Neuro: No focal findings, no asterixis or myoclonus, tremor improved Current Medications: Current Medications Sig/Diane Start time Last Medication Dose Route Stop Time Status Admin Cyanocobalamin/ 1 BAG DAILY 04/29 1000 AC 04/30 Thiamine/Pyridoxine IV 1050 Dextrose/Water 1,000 ML Dextrose/Sodium 1,000 ML Q13H 04/29 1630 DC 04/29 Chloride IV 04/30 0529 1629 Docusate Sodium 100 MG DAILY PRN 04/29 0945 AC PO Gabapentin 0 .STK-MED ONE 04/29 2233 DC PO Gabapentin 0 .STK-MED ONE 04/29 1612 DC PO Gabapentin 300 MG TID 04/29 1000 AC 04/30 PO 0851 Levetiracetam 0 .STK-MED ONE 04/29 2234 DC PO Levetiracetam 750 MG BID 04/29 1000 AC 04/30 PO 1228 Lorazepam 0 .STK-MED ONE 04/29 2234 DC PO Lorazepam 0 .STK-MED ONE 04/29 1745 DC .ROUTE Lorazepam 0 .STK-MED ONE 04/29 1338 DC .ROUTE Lorazepam 1 MG Q1P PRN 04/29 0915 04/30 IV 1228 Lorazepam 1 MG Q4P PRN 04/29 0915 AC 04/30 IV 0851 Magnesium Chloride 64 MG BID 04/29 2045 AC 04/30 PO 1228 Magnesium Sulfate 1 GM Q2H 04/30 0600 DC 04/30 Dextrose/Water 100 ML IV 04/30 0959 0805 Magnesium Sulfate 1 GM Q2H 04/29 2230 DC 04/30 Dextrose/Water 100 ML IV 04/30 0229 0211 Magnesium Sulfate 1 GM ONCE ONE 04/29 1745 DC 04/29 Dextrose/Water 100 ML IV 04/29 2144 1815 Morphine Sulfate 1 MG Q4P PRN 04/29 1630 AC 04/30 IV 1050 Morphine Sulfate 2 MG Q4P PRN 04/29 0915 DC IV Potassium Chloride 40 MEQ Q10H 04/30 0315 DC 04/30 Sodium Chloride 1,000 ML IV 04/30 1314 0328 Potassium Chloride 0 .STK-MED ONE 04/29 2102 DC PO Potassium Chloride 40 MEQ BID 04/29 2045 AC 04/30 PO 0852 Potassium Chloride 40 MEQ ONCE ONE 04/29 1745 DC 04/29 PO 04/29 1746 1741 Potassium Chloride 0 .STK-MED ONE 04/29 1745 DC PO Potassium Chloride 40 MEQ BID 04/29 1023 DC 04/30 PO 04/29 2201 0021 Tramadol HCl 50 MG Q6P PRN 04/29 0915 AC PO Trazodone HCl 0 .STK-MED ONE 04/29 2234 DC PO Trazodone HCl 100 MG QPM 04/29 2200 AC 04/29 PO 2238 Trimethobenzamide HCl 200 MG 4 TIMES/DAY PRN 04/29 915 AC IM Warfarin Sodium 2.5 MG COUMADIN 1700 ONE 04/29 1700 DC 04/29 PO 04/29 1701 1705 Results Pertinent Lab Results: Laboratory Tests 04/30 04/30 04/29 04/29 0702 0110 1920 1609 Chemistry Sodium (137 - 145 mmol/L) 134 L 135 L 130 L Potassium (3.5 - 5.1 mmol/L) 3.3 L 3.6 2.8 *L Chloride (98 - 107 mmol/L) 96 L 92 L 90 L Carbon Dioxide (22 - 30 mmol/L) 29 30 31 H Anion Gap (5 - 16) 9 12 10 BUN (9 - 20 mg/dL) 9 11 10 Creatinine (0.7 - 1.2 mg/dL) 0.6 L 0.7 0.6 L Estimated GFR (>60 ml/min) > 60 > 60 > 60 BUN/Creatinine Ratio (7 - 25 %) 15.0 15.7 16.7 Lactic Acid (0.7 - 2.1 mmol/L) 1.5 Phosphorus (2.5 - 4.5 mg/dL) 2.4 L 2.1 L Magnesium (1.6 - 2.3 mg/dL) 2.0 1.7 1.5 L Troponin I (<0.11 ng/ml) 0.06 Coagulation PT (9.4 - 12.5 SEC) 12.3 INR (0.90 - 1.17) 1.17 Hematology CBC w Diff NO MAN DIFF REQ WBC (4.8 - 10.8 /CUMM) 4.9 RBC (4.70 - 6.10 /CUMM) 3.55 L Hgb (14.0 - 18.0 G/DL) 12.0 L Hct (42 - 52 %) 35.3 L MCV (80.0 - 94.0 FL) 99.3 H MCH (27.0 - 31.0 PG) 33.8 H RDW (11.5 - 14.5 %) 16.7 H Plt Count (130 - 400 /CUMM) 137 MPV (7.4 - 10.4 FL) 8.4 Gran % (42.2 - 75.2 %) 62.9 Lymphocytes % (20.5 - 51.1 %) 20.7 Monocytes % (1.7 - 9.3 %) 15.4 H Eosinophils % (0 - 5 %) 0.3 Basophils % (0.0 - 2.0 %) 0.7 Absolute Granulocytes (1.4 - 6.5 /CUMM) 3.1 Absolute Lymphocytes (1.2 - 3.4 /CUMM) 1.0 L Absolute Monocytes (0.10 - 0.60 /CUMM) 0.8 H Absolute Eosinophils (0.0 - 0.7 /CUMM) 0 Absolute Basophils (0.0 - 0.2 /CUMM) 0 PUBS MCHC (33.0 - 37.0 G/DL) 34.1 04/29 04/29 04/29 1311 0931 0931 Chemistry Sodium (137 - 145 mmol/L) 130 L 132 L Potassium (3.5 - 5.1 mmol/L) 3.1 L 2.4 *L Chloride (98 - 107 mmol/L) 89 L 90 L Carbon Dioxide (22 - 30 mmol/L) 31 H 29 Anion Gap (5 - 16) 10 13 BUN (9 - 20 mg/dL) 8 L 8 L Creatinine (0.7 - 1.2 mg/dL) 0.6 L 0.6 L Estimated GFR (>60 ml/min) > 60 > 60 BUN/Creatinine Ratio (7 - 25 %) 13.3 13.3 Lactic Acid (0.7 - 2.1 mmol/L) 2.6 H Magnesium (1.6 - 2.3 mg/dL) 1.3 L Troponin I (<0.11 ng/ml) 0.08 04/29 04/29 04/29 0754 0754 0635 Chemistry Lactic Acid (0.7 - 2.1 mmol/L) 9.6 H Toxicology Urine Opiates Screen (>2000 NG/ML) < 100.00 Methadone Screen (>300 NG/ML) < 40 Barbiturate Screen (>200 NG/ML) < 60 Ur Phencyclidine Scrn (>25 NG/ML) < 6.00 Amphetamines Screen (>1000 NG/ML) < 100 U Benzodiazepines Scrn (>200 NG/ML) < 85 Urine Cocaine Screen (>300 NG/ML) < 50 Urine Cannabis Screen (>50 NG/ML) 6.20 Urines Urinalysis MOD H Urine Color (YEL,AMB,STR) YEL Urine Clarity (CLEAR) CLEAR Urine pH (5.0 - 8.0) 6.5 Ur Specific Melvin (1.001 - 1.035) <= 1.005 Urine Protein (NEG,<30 MG/DL) TRACE H Urine Ketones (NEG) NEG Urine Nitrite (NEG) NEG Urine Bilirubin (NEG) NEG Urine Urobilinogen (0.1 - 1.0 EU/dl) 4.0 H Ur Leukocyte Esterase (NEG) NEG Ur Microscopic SEDIMENT EXAMINED Urine RBC (0 - 5 /HPF) 1-3 Urine WBC (0 - 2 /HPF) 1-3 H Ur Epithelial Cells (NONE,FEW) RARE Urine Bacteria (NEG/NONE) FEW H Urine Mucus (FEW,NONE) RARE Urine Hemoglobin (NEG) TRACE-INTACT H Urine Osmolality (300 - 1000 MOSM/KG) 239 L Ur Random Creatinine (mg/dL) 66.7 Ur Random Sodium (30 - 90 mmol/L) 40 Ur Random Potassium (mmol/L) 16.4 Fraction Sodium Excret (<1% %) 0.3 Urine Glucose (N MG/DL) NEG 04/29 0635 Chemistry Sodium (137 - 145 mmol/L) 126 L Potassium (3.5 - 5.1 mmol/L) 2.5 *L Chloride (98 - 107 mmol/L) 76 L Carbon Dioxide (22 - 30 mmol/L) 25 Anion Gap (5 - 16) 25 H BUN (9 - 20 mg/dL) 10 Creatinine (0.7 - 1.2 mg/dL) 0.7 Estimated GFR (>60 ml/min) > 60 BUN/Creatinine Ratio (7 - 25 %) 14.3 Glucose (65 - 99 mg/dL) 131 H Serum Osmolality (285 - 295 MOSM/KG) 270 L Calcium (8.4 - 10.2 mg/dL) 8.5 Magnesium (1.6 - 2.3 mg/dL) 0.8 *L Total Bilirubin (0.2 - 1.3 mg/dL) 3.8 H AST (17 - 59 U/L) 189 H ALT (21 - 72 U/L) 117 H Alkaline Phosphatase (< 127 U/L) 145 H Creatine Kinase (55 - 170 U/L) 108 Troponin I (<0.11 ng/ml) 0.09 Total Protein (6.3 - 8.2 g/dL) 7.5 Albumin (3.5 - 5.0 g/dL) 4.5 Globulin (1.9 - 4.2 gm/dL) 3.0 Albumin/Globulin Ratio (1.1 - 2.2 %) 1.5 Amylase (30 - 110 U/L) 68 Lipase (23 - 300 U/L) 238 Coagulation PT (9.4 - 12.5 SEC) 15.8 H INR (0.90 - 1.17) 1.51 H APTT (25 - 37 SEC) 27 Hematology CBC w Diff NO MAN DIFF REQ WBC (4.8 - 10.8 /CUMM) 9.2 RBC (4.70 - 6.10 /CUMM) 4.69 L Hgb (14.0 - 18.0 G/DL) 15.6 Hct (42 - 52 %) 46.1 MCV (80.0 - 94.0 FL) 98.3 H MCH (27.0 - 31.0 PG) 33.3 H RDW (11.5 - 14.5 %) 16.5 H Plt Count (130 - 400 /CUMM) 195 MPV (7.4 - 10.4 FL) 8.1 Gran % (42.2 - 75.2 %) 68.3 Lymphocytes % (20.5 - 51.1 %) 17.4 L Monocytes % (1.7 - 9.3 %) 13.5 H Eosinophils % (0 - 5 %) 0 Basophils % (0.0 - 2.0 %) 0.8 Absolute Granulocytes (1.4 - 6.5 /CUMM) 6.3 Absolute Lymphocytes (1.2 - 3.4 /CUMM) 1.6 Absolute Monocytes (0.10 - 0.60 /CUMM) 1.2 H Absolute Eosinophils (0.0 - 0.7 /CUMM) 0 Absolute Basophils (0.0 - 0.2 /CUMM) 0.1 PUBS MCHC (33.0 - 37.0 G/DL) 33.9 Toxicology Serum Alcohol (<10 MG/DL) < 10.0
[2017-04-30 16:03] VITALS: BP 128/82
--- NOTE | 2017-04-30 16:14 | NUR ---
Referral received yesterday morning via lectronic video recorder mechanic. This patient is a 42 year old man, admitted to the hospital yesterday morning with dehydration and hypokalemia. Patient with a significant current history of active ETOH abuse; placed on CIWA and scoring 17 for tremors, headache, and sweats. Has received 5mg. ativan in 24 hours. Nursing assessment reports patient wheelchair bound at baseline; this could be a problem in securing outpatient treatment. Patient is medicare prime, so inpatient treatment not covered. Will follow to better assess for aftercare needs. WIll collaborate with case management and psychiatry.
[2017-04-30 20:00] VITALS: BP 120/80
[2017-04-30 22:00] VITALS: BP 122/74
[2017-05-01] VITALS: BP 118/64
[2017-05-01 00:18] VITALS: BP 118/64
[2017-05-01 02:00] VITALS: BP 116/60
[2017-05-01 06:00] VITALS: BP 120/70
[2017-05-01 08:00] VITALS: BP 142/100
[2017-05-01 08:02] LABS: ABSOLUTE BASOPHIL COUNT 0 /CUMM (0.0-0.2); ABSOLUTE EOSINOPHIL COUNT 0.1 /CUMM (0.0-0.7); ABSOLUTE GRANULOCYTE CT 2.7 /CUMM (1.4-6.5); ABSOLUTE LYMPH COUNT 1.5 /CUMM (1.2-3.4); ABSOLUTE MONOCYTE COUNT 0.7 /CUMM (0.10-0.60); BASOPHIL % 0.8 % (0.0-2.0); EOSINOPHIL % 1.7 % (0-5); GRANULOCYTE % 53.7 % (42.2-75.2); HEMATOCRIT 34.1 % (42-52); MEAN CORPUSCULAR HGB 33.8 PG (27.0-31.0); MEAN CORPUSCULAR HGB CONC 33.9 G/DL (33.0-37.0); MEAN CORPUSCULAR VOLUME 99.6 FL (80.0-94.0); MEAN PLATELET VOLUME 8.3 FL (7.4-10.4); PLATELET COUNT 144 /CUMM (130-400); RBC DISTRIBUTION WIDTH 16.9 % (11.5-14.5); RED BLOOD CELL CT 3.42 /CUMM (4.70-6.10); WHITE BLOOD CELL COUNT 5.1 /CUMM (4.8-10.8)
[2017-05-01 08:24] LABS: PT 12.2 SEC (9.4-12.5)
--- NOTE | 2017-05-01 11:06 | PN- Att Addend ---
Attending Addendum Attending Brief Note Patient laying in bed comfortably moving his hands better with less spasms. Vital signs are stable no fever. His lab work is overall improved. We'll continue observation and have school social worker evaluate the patient, patient eventually will need short-term rehabilitation and later on outpatient treatment of his alcohol dependency and pain management. 24 TOTALS 05/01 0000 04/30 0000 Intake Total 2670 5500 Output Total 1550 1890 Balance 1120 3610 Intake, IV 1350 5400 Intake, Oral 1320 100 Number 2 1 Bowel Movements Output, Urine 1550 1890 Patient 220 lb 220 lb Weight Weight Reported by Patient Measurement Method Current Medications Sig/Diane Start time Last Medication Dose Route Stop Time Status Admin Cyanocobalamin/ 1 BAG DAILY 04/29 1000 AC 04/30 Thiamine/Pyridoxine IV 1050 Dextrose/Water 1,000 ML Docusate Sodium 100 MG DAILY PRN 04/29 0945 AC PO Gabapentin 300 MG TID 04/29 1000 AC 05/01 PO 0905 Levetiracetam 750 MG BID 04/29 1000 AC 05/01 PO 0905 Lorazepam 1 MG Q1P PRN 04/29 0915 AC 05/01 IV 0904 Lorazepam 1 MG Q4P PRN 04/29 0915 AC 04/30 IV 1802 Magnesium Chloride 64 MG BID 04/29 2045 AC 05/01 PO 0904 Morphine Sulfate 1 MG Q4P PRN 04/29 1630 AC 05/01 IV 1049 Patient Medication 1 ED .STK-MED ONE 04/30 1356 DC Teaching ED 04/30 1357 Potassium Chloride 40 MEQ Q10H 04/30 0315 DC 04/30 Sodium Chloride 1,000 ML IV 04/30 1314 0328 Potassium Chloride 40 MEQ BID 04/29 2045 AC 05/01 PO 0905 Tramadol HCl 50 MG Q6P PRN 04/29 0915 AC 05/01 PO 0801 Trazodone HCl 100 MG QPM 04/29 2200 AC 04/30 PO 2128 Trimethobenzamide HCl 200 MG 4 TIMES/DAY PRN 04/29 0915 AC IM Warfarin Sodium 5 MG COUMADIN 1700 ONE 04/30 1700 DC 04/30 PO 04/30 1701 1617 Laboratory Tests 05/01/17 0648: Anion Gap 9, Estimated GFR > 60, BUN/Creatinine Ratio 13.3, Phosphorus 2.8, Magnesium 1.5 L, Total Bilirubin 2.2 H, Direct Bilirubin 1.2 H, AST 139 H, ALT 101 H, Alkaline Phosphatase 109, Total Protein 5.8 L, Albumin 3.2 L, PT 12.2, INR 1.16, CBC w Diff NO MAN DIFF REQ, RBC 3.42 L, MCV 99.6 H, MCH 33.8 H, RDW 16.9 H, MPV 8.3, Gran % 53.7, Lymphocytes % 29.3, Monocytes % 14.5 H, Eosinophils % 1.7, Basophils % 0.8, Absolute Granulocytes 2.7, Absolute Lymphocytes 1.5, Absolute Monocytes 0.7 H, Absolute Eosinophils 0.1, Absolute Basophils 0, PUBS MCHC 33.9 04/30/17 1940: Anion Gap 9, Estimated GFR > 60, BUN/Creatinine Ratio 11.7, Phosphorus 2.3 L, Magnesium 1.6 04/30/17 0702: Anion Gap 9, Estimated GFR > 60, BUN/Creatinine Ratio 15.0, Phosphorus 2.4 L, Magnesium 2.0, PT 12.3, INR 1.17, CBC w Diff NO MAN DIFF REQ, RBC 3.55 L, MCV 99.3 H, MCH 33.8 H, RDW 16.7 H, MPV 8.4, Gran % 62.9, Lymphocytes % 20.7, Monocytes % 15.4 H, Eosinophils % 0.3, Basophils % 0.7, Absolute Granulocytes 3.1, Absolute Lymphocytes 1.0 L, Absolute Monocytes 0.8 H, Absolute Eosinophils 0, Absolute Basophils 0, PUBS MCHC 34.1 04/30/17 0110: Anion Gap 12, Estimated GFR > 60, BUN/Creatinine Ratio 15.7, Magnesium 1.7 04/29/17 1920: Anion Gap 10, Estimated GFR > 60, BUN/Creatinine Ratio 16.7, Phosphorus 2.1 L, Magnesium 1.5 L, Troponin I 0.06 04/29/17 1609: Lactic Acid 1.5 04/29/17 1311: Anion Gap 10, Estimated GFR > 60, BUN/Creatinine Ratio 13.3, Troponin I 0.08
--- NOTE | 2017-05-01 14:03 | PN- Housestaff ---
Subjective Follow-up For: Electrolyte abnormalities Alcohol dependence/withdrawal Pain management Complaints: no complaints Tele-Events Since Last Visit: Sinus rhythm Subjective: Patient remained afebrile overnight. No complains of chest pain or shortness of breath Review of Systems Constitutional: Denies: chills, fever. Cardiovascular: Denies: chest pain, palpitations. Respiratory: Denies: cough, short of breath. Gastrointestinal: Denies: abdominal pain, nausea, vomiting. Genitourinary: Denies: discharge. Objective Last 24 Hrs of Vital Signs/I&O Vital Signs Date Time Temp Pulse Resp B/P B/P Pulse O2 O2 Flow FiO2 Mean Ox Delivery Rate 05/01 0800 98.3 103 20 142/100 95 Room Air 05/01 0600 88 20 120/70 05/01 0200 100 16 116/60 05/01 0018 98.8 102 16 118/64 97 Room Air 05/01 0000 98.8 102 20 118/64 04/30 2200 100 16 122/74 04/30 2000 108 20 120/80 04/30 1603 99.0 104 18 128/82 96 Room Air Intake & Output 05/01 1600 16 0800 05/01 0000 Intake Total 240 880 Output Total 300 1150 Balance -60 -270 Intake, IV 400 Intake, Oral 240 480 Output, Urine 300 1150 Physical Exam General Appearance: Alert, Oriented X3, Cooperative HEENT: Atraumatic Neck: Supple Cardiovascular: Regular Rate, Normal S1, Normal S2 Lungs: Clear to Auscultation, Normal Air Movement Abdomen: Normal Bowel Sounds, Soft, No Tenderness Neurological: Normal Speech, Normal Tone, Sensation Intact Extremities: No Edema Current Medications: Current Medications Sig/Diane Start time Last Medication Dose Route Stop Time Status Admin Cyanocobalamin/ 1 BAG DAILY 04/29 1000 AC 05/01 Thiamine/Pyridoxine IV 1137 Dextrose/Water 1,000 ML Docusate Sodium 100 MG DAILY PRN 04/29 0945 AC PO Gabapentin 300 MG TID 04/29 1000 AC 05/01 PO 09 Levetiracetam 750 MG BID 04/29 1000 AC 05/01 PO 09 Lorazepam 1 MG Q1P PRN 04/29 0915 AC 05/01 IV 0904 Lorazepam 1 MG Q4P PRN 04/29 09 AC 04/30 IV 1802 Magnesium Chloride 64 MG BID 04/29 2045 AC 05/01 PO 0904 Morphine Sulfate 1 MG Q4P PRN 04/29 1630 05/01 IV 1049 Potassium Chloride 40 MEQ BID 04/29 2045 05/01 PO 0905 Tramadol HCl 50 MG Q6P PRN 04/29 0915 05/01 PO 0801 Trazodone HCl 100 MG QPM 04/29 2200 AC 04/30 PO 2128 Trimethobenzamide HCl 200 MG 4 TIMES/DAY PRN 04/29 915 AC IM Warfarin Sodium 5 MG COUMADIN 1700 ONE 04/30 1700 DC 04/30 PO 04/30 1701 1617 Last 24 Hrs of Lab/Osorio Results Last 24 Hrs of Labs/Mics: Laboratory Tests 05/01/17 0648: Anion Gap 9, Estimated GFR > 60, BUN/Creatinine Ratio 13.3, Phosphorus 2.8, Magnesium 1.5 L, Total Bilirubin 2.2 H, Direct Bilirubin 1.2 H, AST 139 H, ALT 101 H, Alkaline Phosphatase 109, Total Protein 5.8 L, Albumin 3.2 L, PT 12.2, INR 1.16, CBC w Diff NO MAN DIFF REQ, RBC 3.42 L, MCV 99.6 H, MCH 33.8 H, RDW 16.9 H, MPV 8.3, Gran % 53.7, Lymphocytes % 29.3, Monocytes % 14.5 H, Eosinophils % 1.7, Basophils % 0.8, Absolute Granulocytes 2.7, Absolute Lymphocytes 1.5, Absolute Monocytes 0.7 H, Absolute Eosinophils 0.1, Absolute Basophils 0, PUBS MCHC 33.9 04/30/17 1940: Anion Gap 9, Estimated GFR > 60, BUN/Creatinine Ratio 11.7, Phosphorus 2.3 L, Magnesium 1.6 Assessment/Plan Assessment: 42-year-old man with past medical history significant for brain tumor status post resection, seizures on Keppra, PE in 2013 on Coumadin, diabetes mellitus with peripheral neuropathy, anxiety and depression, chronic back pain, 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 Patient was admitted on telemetry so for the management of following problems Hypokalemia/hypomagnesemia Likely secondary to poor by mouth intake and malnutrition secondary to alcohol dependence We will repeat electrolytes appropriately Hypernatremia Most likely secondary to the beer potomania vs volume contraction. Current Sodium 138, improved approprietly with IVF. History of PE continue Coumadin, adjust dose according to INR Alcohol dependence - Vitals Q Shift - Give PRN IV Ativan. - CIWA Protocol current CIWA scores 11 and 14 - Ativan 2 mg by mouth every 6 hours scheduled - Banana Bag - Replete Lytes - Give Multivitamins, B12 and Folate - Psychiatry consult - Social work consult Chronic back pain Pain management pathway Adequate bowel regimen for narcotic induced constipation Patient is full code Patient is on diabetic diet Patient is on Accu-Cheks Patient is on Coumadin for DVT prophylaxis Patient is on pain management Problem List: 1. Alcohol dependence 2. Hypokalemia 3. Hypomagnesemia Pain Ratin Pain Location: NA Pain Goal: Pain 4 or less Pain Plan: Continue pain management Tomorrow's Labs & Rationales: BEP electrolytes and LFTs for electrolyte abnormalities and transaminitis
[2017-05-01 16:06] VITALS: BP 134/88
[2017-05-02 01:18] VITALS: BP 134/94
--- NOTE | 2017-05-02 07:25 | PN- Housestaff ---
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 Patient was admitted on telemetry so for the management of following problems Hypokalemia/hypomagnesemia Likely secondary to poor by mouth intake and malnutrition secondary to alcohol dependence We will repeat electrolytes appropriately Hypernatremia Most likely secondary to the beer potomania vs volume contraction. Current Sodium 138, improved approprietly with IVF. History of PE continue Coumadin, adjust dose according to INR Alcohol dependence - Vitals Q Shift - Give PRN IV Ativan. - CIWA Protocol current CIWA scores 11 and 14 - Ativan 2 mg by mouth every 6 hours scheduled - Banana Bag - Replete Lytes - Give Multivitamins, B12 and Folate - Psychiatry consult - Social work consult Chronic back pain Pain management pathway Adequate bowel regimen for narcotic induced constipation Patient is full code Patient is on diabetic diet Patient is on Accu-Cheks Patient is on Coumadin for DVT prophylaxis Patient is on pain management
[2017-05-02 08:00] VITALS: BP 134/90
[2017-05-02 08:03] LABS: ABSOLUTE BASOPHIL COUNT 0.1 /CUMM (0.0-0.2); ABSOLUTE EOSINOPHIL COUNT 0.1 /CUMM (0.0-0.7); ABSOLUTE GRANULOCYTE CT 3.8 /CUMM (1.4-6.5); ABSOLUTE LYMPH COUNT 1.8 /CUMM (1.2-3.4); ABSOLUTE MONOCYTE COUNT 1.1 /CUMM (0.10-0.60); BASOPHIL % 0.8 % (0.0-2.0); EOSINOPHIL % 1.7 % (0-5); GRANULOCYTE % 55.5 % (42.2-75.2); HEMATOCRIT 35.1 % (42-52); MEAN CORPUSCULAR HGB CONC 34.3 G/DL (33.0-37.0); MEAN CORPUSCULAR VOLUME 99.2 FL (80.0-94.0); MEAN PLATELET VOLUME 8.2 FL (7.4-10.4); PLATELET COUNT 186 /CUMM (130-400); RBC DISTRIBUTION WIDTH 16.4 % (11.5-14.5); RED BLOOD CELL CT 3.53 /CUMM (4.70-6.10); WHITE BLOOD CELL COUNT 6.9 /CUMM (4.8-10.8)
[2017-05-02 08:17] VITALS: BP 134/90
[2017-05-02 08:23] LABS: PT 12.3 SEC (9.4-12.5)
--- NOTE | 2017-05-02 10:16 | PN- Housestaff ---
Subjective Follow-up For: Electrolyte abnormalities Alcohol dependence/withdrawal Pain management for chronic back pain Tele-Events Since Last Visit: Sinus tachycardia heart rate in the range of 91-106 Subjective: This morning patient is alert, awake and oriented. Vitals are stable. He is feeling improved. Review of Systems Constitutional: Reports: see HPI. Objective Last 24 Hrs of Vital Signs/I&O Vital Signs Date Time Temp Pulse Resp B/P B/P Pulse O2 O2 Flow FiO2 Mean Ox Delivery Rate 05/02 0817 99.4 100 20 134/90 96 Room Air 05/02 0800 99.4 100 20 134/90 05/02 0800 96 Room Air 05/02 0118 98.5 106 20 134/94 97 Room Air 05/01 1606 98.6 95 20 134/88 96 Room Air Intake & Output 05/02 1600 05/02 0800 05/02 0000 Intake Total 340 650 Output Total 850 750 Balance -510 -100 Intake, IV 0 0 Intake, Oral 340 650 Number 0 0 Bowel Movements Output, Urine 850 750 Physical Exam General Appearance: Alert, Oriented X3, Cooperative, No Acute Distress Neck: Supple Cardiovascular: tachy Lungs: Clear to Auscultation Abdomen: Normal Bowel Sounds, Soft, No Tenderness Extremities: No Edema Last 24 Hrs of Lab/Osorio Results Last 24 Hrs of Labs/Mics: Laboratory Tests 05/02/17 0650: Anion Gap 7, Estimated GFR > 60, BUN/Creatinine Ratio 15.0, Magnesium 1.2 L, PT 12.3, INR 1.17, CBC w Diff NO MAN DIFF REQ, RBC 3.53 L, MCV 99.2 H, MCH 34.0 H, RDW 16.4 H, MPV 8.2, Gran % 55.5, Lymphocytes % 26.2, Monocytes % 15.8 H, Eosinophils % 1.7, Basophils % 0.8, Absolute Granulocytes 3.8, Absolute Lymphocytes 1.8, Absolute Monocytes 1.1 H, Absolute Eosinophils 0.1, Absolute Basophils 0.1, PUBS MCHC 34.3 Orders CIWA Score (last 24 hrs): 4-5 Assessment/Plan Assessment: 42-year-old man with past medical history significant for brain tumor status post resection, seizures on Keppra, PE in 2013 on Coumadin, diabetes mellitus with peripheral neuropathy, anxiety and depression, chronic back pain, degenerative changes in 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 Problem list 1. Alcohol withdrawal 2. Electrolyte abnormalities (hyponatremia, hypokalemia and hypomagnesemia) 3. Pain management for chronic back pain PLAN * Monitor vitals * Monitor electrolytes daily and replete accordingly * Continue CIWA protocol. * Continue scheduled Ativan taper and IV Ativan as needed per CIWA. * Continue multivitamins/thiamine/folic acid * Continue pain management with morphine and tramadol * Bowel regimen * Continue other medications * Check INR daily and dose Coumadin accordingly Patient is full code Patient is on diabetic diet Patient is on Coumadin for DVT prophylaxis Problem List: 1. Alcohol abuse 2. Alcohol dependence Pain Ratin Pain Location: back pain Pain Goal: Pain 4 or less Pain Plan: Morphine and tramadol Tomorrow's Labs & Rationales: bep DVT/Prophylaxis: pharmacological
--- NOTE | 2017-05-02 12:02 | PN- Att Addend ---
Attending Addendum Attending Brief Note Patient this morning is awake but somewhat lethargic however answering questions appropriately. General Appearance: Alert, No Acute Distress Skin: Grossly normal HEENT: PEERLA Neck: Supple, No JVD Cardiovascular: Regular Rate, Normal S1, Normal S2, No Murmurs Lungs: Clear to Auscultation, Normal Air Movement Abdomen: Normal Bowel Sounds, Soft, No Tenderness Neurological: Normal Speech, Strength at 5/5 X4 Ext, Cranial Nerves 3-12 NL, Reflexes 2+ Extremities: No Clubbing, No Cyanosis, No Edema Vascular: Normal Pulses Assessment He is currently scoring low on CIWA. At this point we are tapering Ativan and morphine. We'll continue low-dose tramadol for pain when necessary. The lites abnormalities have mostly resolved. Sinus tachycardia likely in the setting of detox and withdrawals. Plan Continue Ativan taper Continue morphine taper Tramadol when necessary for pain Continue other medications PT evaluation Continue Coumadin Current Medications Sig/Diane Start time Last Medication Dose Route Stop Time Status Admin Cyanocobalamin/ 1 BAG DAILY 04/29 1000 DC 05/01 Thiamine/Pyridoxine IV 1137 Dextrose/Water 1,000 ML Docusate Sodium 100 MG DAILY PRN 04/29 0945 AC PO Folic Acid 1 MG DAILY 05/01 1417 AC 05/02 PO 0850 Gabapentin 300 MG TID 04/29 1000 AC 05/02 PO 0850 Levetiracetam 750 MG BID 04/29 1000 AC 05/02 PO 0850 Lorazepam 1.5 MG Q8 05/02 1400 AC PO Lorazepam 2 MG Q6 05/01 1411 DC 05/02 PO 0530 Lorazepam 1 MG Q3P PRN 05/01 1410 AC IV Lorazepam 1 MG Q1P PRN 04/29 0915 DC 05/01 IV 0904 Lorazepam 1 MG Q4P PRN 04/29 0915 DC 04/30 IV 1802 Magnesium Chloride 64 MG BID 04/29 2045 AC 05/02 PO 0902 Magnesium Sulfate 1 GM ONCE ONE 05/02 0830 AC Dextrose/Water 100 ML IV 05/02 1229 Magnesium Sulfate 1 GM ONCE ONE 05/02 0830 AC Dextrose/Water 100 ML IV 05/02 1229 Morphine Sulfate 1 MG Q4P PRN 04/29 1630 DC 05/02 IV 0801 Multivitamins 1 TAB DAILY 05/01 1415 06/17 PO 0850 Potassium Chloride 40 MEQ BID 04/29 2045 AC 05/02 PO 0850 Thiamine HCl 100 MG DAILY 05/01 1417 AC 05/02 PO 0850 Tramadol HCl 50 MG Q6P PRN 04/29 0915 AC 05/01 PO 0801 Trazodone HCl 100 MG QPM 04/29 2200 AC 05/01 PO 2331 Trimethobenzamide HCl 200 MG 4 TIMES/DAY PRN 04/29 0915 AC IM Warfarin Sodium 6 MG COUMADIN 1700 ONE 05/02 1700 AC PO 05/02 1701 Warfarin Sodium 5 MG COUMADIN 1700 ONE 05/01 1700 DC 05/01 PO 05/01 1701 1603 Laboratory Tests 05/02 0650 Chemistry Sodium (137 - 145 mmol/L) 134 L Potassium (3.5 - 5.1 mmol/L) 4.8 Chloride (98 - 107 mmol/L) 101 Carbon Dioxide (22 - 30 mmol/L) 26 Anion Gap (5 - 16) 7 BUN (9 - 20 mg/dL) 9 Creatinine (0.7 - 1.2 mg/dL) 0.6 L Estimated GFR (>60 ml/min) > 60 BUN/Creatinine Ratio (7 - 25 %) 15.0 Magnesium (1.6 - 2.3 mg/dL) 1.2 L Coagulation PT (9.4 - 12.5 SEC) 12.3 INR (0.90 - 1.17) 1.17 Hematology CBC w Diff NO MAN DIFF REQ WBC (4.8 - 10.8 /CUMM) 6.9 RBC (4.70 - 6.10 /CUMM) 3.53 L Hgb (14.0 - 18.0 G/DL) 12.0 L Hct (42 - 52 %) 35.1 L MCV (80.0 - 94.0 FL) 99.2 H MCH (27.0 - 31.0 PG) 34.0 H RDW (11.5 - 14.5 %) 16.4 H Plt Count (130 - 400 /CUMM) 186 MPV (7.4 - 10.4 FL) 8.2 Gran % (42.2 - 75.2 %) 55.5 Lymphocytes % (20.5 - 51.1 %) 26.2 Monocytes % (1.7 - 9.3 %) 15.8 H Eosinophils % (0 - 5 %) 1.7 Basophils % (0.0 - 2.0 %) 0.8 Absolute Granulocytes (1.4 - 6.5 /CUMM) 3.8 Absolute Lymphocytes (1.2 - 3.4 /CUMM) 1.8 Absolute Monocytes (0.10 - 0.60 /CUMM) 1.1 H Absolute Eosinophils (0.0 - 0.7 /CUMM) 0.1 Absolute Basophils (0.0 - 0.2 /CUMM) 0.1 PUBS MCHC (33.0 - 37.0 G/DL) 34.3 Vital Signs Date Time Temp Pulse Resp B/P B/P Pulse O2 O2 Flow FiO2 Mean Ox Delivery Rate 05/02 1000 108 05/02 0817 99.4 100 20 134/90 96 Room Air 05/02 0800 99.4 100 20 134/90 05/02 0800 96 Room Air 05/02 0118 98.5 106 20 134/94 97 Room Air 05/01 1606 98.6 95 20 134/88 96 Room Air
--- NOTE | 2017-05-02 15:58 | Patient Discharge Instructions ---
Discharge Instructions General Discharge Information You were seen/treated for: Electrolyte abnormalities Alcohol dependence/withdrawal Pain management for chronic back pain Special Instructions: Folllow up with PCP in a week after discharge Folllow up with residential or [facility] level of care for substance abuse issues after discharge Check INR in two days and adjust coumadin dose accordingly Diet Continue normal diet: Yes Activity Full Activity/No Limits: Yes Acute Coronary Syndrome Inclusion Criteria At DC or during hospital stay patient has or had the following: ACS DIAGNOSIS No Discharge Core Measures Meds if any: Prescribed or Continued at Discharge Meds if any: NOT Prescribed or Continued at Discharge Congestive Heart Failure Inclusion Criteria At DC or during hospital stay patient has or had the following: CHF DIAGNOSIS No Discharge Core Measures Meds if any: Prescribed or Continued at Discharge Meds if any: NOT Prescribed or Continued at Discharge Cerebrovascular accident Inclusion Criteria At DC or during hospital stay patient has or had the following: CVA/TIA Diagnosis No Discharge Core Measures Meds if any: Prescribed or Continued at Discharge Meds if any: NOT Prescribed or Continued at Discharge Venous thromboembolism Inclusion Criteria VTE Diagnosis No VTE Type NONE VTE Confirmed by (Test) NONE Discharge Core Measures - Per Current guidelines, there needs to be overlap - treatment for the first 5 days of Warfarin therapy. - If discharged on Warfarin prior to 5 days of - overlap therapy, the patient will need to be - assessed for post discharge needs including - *Post discharge parental anticoagulation - *Warfarin and/or parental anticoagulation education - *Follow up date to check INR post discharge At least 5 days overlap therapy as Inpatient No Meds if any: Prescribed or Continued at Discharge Note: Overlap Therapy is Warfarin and Anticoagulant Meds if any: NOT Prescribed or Continued at Discharge
[2017-05-02 16:10] VITALS: BP 142/90
[2017-05-03 00:36] VITALS: BP 126/92
[2017-05-03 07:28] LABS: PT 13.7 SEC (9.4-12.5)
[2017-05-03 08:00] VITALS: BP 120/88
--- NOTE | 2017-05-03 08:37 | PN- Att Addend ---
Attending Addendum Attending Brief Note Patient this morning is awake complains of fatigue. General Appearance: Alert, No Acute Distress Skin: Grossly normal HEENT: PEERLA Neck: Supple, No JVD Cardiovascular: Regular Rate, Normal S1, Normal S2, No Murmurs Lungs: Clear to Auscultation, Normal Air Movement Abdomen: Normal Bowel Sounds, Soft, No Tenderness Neurological: Normal Speech, Strength at 5/5 X4 Ext, Cranial Nerves 3-12 NL, Reflexes 2+ Extremities: No Clubbing, No Cyanosis, No Edema Vascular: Normal Pulses Assessment He is currently scoring low on CIWA. At this point we are tapering Ativan and off morphine. We'll continue low-dose tramadol for pain when necessary. Electrolyte abnormalities have mostly resolved. Sinus tachycardia likely in the setting of detox and withdrawals. Plan Discontinue potassium supplement Continue Ativan taper Tramadol when necessary for pain Continue other medications PT evaluation Continue Coumadin, give 8 mg today Current Medications Sig/Diane Start time Last Medication Dose Route Stop Time Status Admin Docusate Sodium 100 MG DAILY PRN 04/29 0945 PO Folic Acid 1 MG DAILY 05/01 1417 AC 05/02 PO 0850 Gabapentin 300 MG TID 04/29 1000 AC 05/02 PO 2135 Levetiracetam 750 MG BID 04/29 1000 AC 05/02 PO 2135 Lorazepam 1 MG .STK-MED ONE 05/02 2124 DC PO 05/02 2125 Lorazepam 1.5 MG Q8 05/02 1400 AC 05/03 PO 0606 Lorazepam 2 MG Q6 05/01 1411 DE 05/02 PO 0530 Lorazepam 1 MG Q3P PRN 05/01 1410 IV Magnesium Chloride 64 MG BID 04/29 2045 AC 05/02 PO 2135 Magnesium Sulfate 1 GM ONCE ONE 05/02 0830 DC 05/02 Dextrose/Water 100 ML IV 05/02 1229 1159 Magnesium Sulfate 1 GM ONCE ONE 05/02 0830 DC 05/02 Dextrose/Water 100 ML IV 05/02 1229 1431 Morphine Sulfate 1 MG Q4P PRN 04/29 1630 DC 05/02 IV 0801 Multivitamins 1 TAB DAILY 05/01 1415 AC 05/02 PO 0850 Potassium Chloride 40 MEQ BID 04/29 2045 AC 05/02 PO 2135 Thiamine HCl 100 MG DAILY 05/01 1417 06/17 PO 0850 Tramadol HCl 50 MG Q6P PRN 04/29 0915 AC 05/02 PO 2135 Trazodone HCl 100 MG QPM 04/29 2200 AC 05/02 PO 2135 Trimethobenzamide HCl 200 MG 4 TIMES/DAY PRN 04/29 0915 AC IM Warfarin Sodium 6 MG COUMADIN 1700 ONE 05/02 1700 DC 05/02 PO 05/02 1701 1650 Laboratory Tests 05/03 0625 Chemistry Sodium (137 - 145 mmol/L) 137 Potassium (3.5 - 5.1 mmol/L) 5.2 H Chloride (98 - 107 mmol/L) 101 Carbon Dioxide (22 - 30 mmol/L) 24 Anion Gap (5 - 16) 12 BUN (9 - 20 mg/dL) 9 Creatinine (0.7 - 1.2 mg/dL) 0.6 L Estimated GFR (>60 ml/min) > 60 BUN/Creatinine Ratio (7 - 25 %) 15.0 Magnesium (1.6 - 2.3 mg/dL) 1.7 Coagulation PT (9.4 - 12.5 SEC) 13.7 H INR (0.90 - 1.17) 1.31 H Vital Signs Date Time Temp Pulse Resp B/P B/P Pulse O2 O2 Flow FiO2 Mean Ox Delivery Rate 05/03 0036 99.2 90 20 126/92 94 05/02 1800 91 05/02 1610 99.1 87 16 142/90 97 Room Air 05/02 1600 85 05/02 1200 102 05/02 1000 108
[2017-05-03 09:48] VITALS: BP 120/88
--- NOTE | 2017-05-03 11:19 | PN- Housestaff ---
Subjective Follow-up For: Alcohol withdrawal Dyselectrolytemia Complaints: unable to sleep Tele-Events Since Last Visit: No Any overnight events Subjective: Patient is seen and examined at the bedside. He was not having any active complaints. he wanted something for sleep. His CIWA score is currently 2-3 Review of Systems Constitutional: Denies: no symptoms. Objective Last 24 Hrs of Vital Signs/I&O Vital Signs Date Time Temp Pulse Resp B/P B/P Pulse O2 O2 Flow FiO2 Mean Ox Delivery Rate 05/03 1543 99.0 90 16 124/70 92 Room Air 05/03 0948 99.8 92 16 120/88 93 Room Air 05/03 0800 Room Air 05/03 0800 99.8 92 16 120/88 05/03 0036 99.2 90 20 126/92 94 Intake & Output 05/03 1600 05/03 0800 05/03 0000 Intake Total 480 150 590 Output Total 1175 475 Balance 480 -1025 115 Intake, IV 0 0 Intake, Oral 480 150 590 Number 0 0 Bowel Movements Output, Urine 1175 475 Physical Exam General Appearance: Alert, Oriented X3, Cooperative, No Acute Distress Cardiovascular: Normal S1, Normal S2 Lungs: Clear to Auscultation, Normal Air Movement Abdomen: Soft, No Tenderness Extremities: No Clubbing, No Cyanosis, No Edema Vascular: Normal Pulses, Pulses Symmetrical Assessment/Plan Assessment: 42-year-old man with past medical history significant for brain tumor status post resection, seizures on Keppra, PE in 2013 on Coumadin, diabetes mellitus with peripheral neuropathy, anxiety and depression, chronic back pain, 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 Problem list 1. Alcohol withdrawal 2. Electrolyte abnormalities (hyponatremia, hypokalemia and hypomagnesemia) 3. Pain management for chronic back pain PLAN * Monitor vitals * Monitor electrolytes daily and replete accordingly * Continue CIWA protocol. * Continue scheduled Ativan taper and IV Ativan as needed per CIWA -decrease to 1.5 milligrams twice a day * Continue multivitamins/thiamine/folic acid * Continue pain management with morphine and tramadol * Bowel regimen * Continue other medications * Check INR daily and dose Coumadin accordingly -gave 8 milligram of Coumadin today * CODE STATUS-full code * Diet-diabetic diet * DVT prophylaxis-ALP S/Coumadin Problem List: 1. Alcohol withdrawal Pain Ratin Pain Location: Back Pain Goal: Remain pain free Pain Plan: Avoid NSAIDs Tomorrow's Labs & Rationales: BEP/PT/INR for follow-up DVT/Prophylaxis: mechanical, pharmacological
[2017-05-03 15:43] VITALS: BP 124/70
[2017-05-03 23:00] VITALS: BP 132/78
[2017-05-04 08:00] VITALS: BP 104/76
--- NOTE | 2017-05-04 09:10 | PN- Housestaff ---
Subjective Follow-up For: Electrolyte abnormalities Alcohol dependence/withdrawal Pain management Complaints: no complaints Subjective: Patient will be discharged today. His CIWA scores have been mostly 0 for the last 2 days. He did not complain of any chest pain or shortness of breath. Review of Systems Constitutional: Denies: chills, fever. EENTM: Denies: visual changes. Cardiovascular: Denies: chest pain, palpitations. Respiratory: Denies: cough, short of breath. Gastrointestinal: Denies: abdominal pain, nausea, vomiting. Objective Last 24 Hrs of Vital Signs/I&O Vital Signs Date Time Temp Pulse Resp B/P B/P Pulse O2 O2 Flow FiO2 Mean Ox Delivery Rate 05/04 0901 100 18 05/04 0800 98.3 88 18 104/76 94 Room Air 05/03 2300 97.4 98 16 132/78 95 Room Air 05/03 1543 99.0 90 16 124/70 92 Room Air Intake & Output 05/04 1600 05/04 0800 05/04 0000 Intake Total 250 1010 Output Total 550 650 Balance -300 360 Intake, IV 0 0 Intake, Oral 250 1010 Number 0 1 Bowel Movements Output, Urine 550 650 Physical Exam General Appearance: Alert, Oriented X3, Cooperative, No Acute Distress Skin: No Rashes HEENT: Atraumatic Neck: Supple Cardiovascular: Regular Rate, Normal S1, Normal S2 Lungs: Clear to Auscultation, Normal Air Movement Abdomen: Normal Bowel Sounds, Soft, No Tenderness Neurological: Normal Speech, Normal Tone, Sensation Intact Extremities: No Edema Vascular: Normal Pulses Current Medications: Current Medications Sig/Diane Start time Last Medication Dose Route Stop Time Status Admin Docusate Sodium 100 MG DAILY PRN 04/29 0945 AC PO Folic Acid 1 MG DAILY 05/01 1417 AC 05/04 PO 1001 Gabapentin 300 MG TID 04/29 1000 AC 05/04 PO 1001 Levetiracetam 750 MG BID 04/29 1000 AC 05/04 PO 1000 Lorazepam 1.5 MG BID 05/03 2200 AC 05/04 PO 1000 Lorazepam 1 MG Q3P PRN 05/01 1410 AC IV Magnesium Chloride 64 MG BID 04/29 2045 AC 05/04 PO 1001 Multivitamins 1 TAB DAILY 05/01 1415 AC 05/04 PO 1001 Potassium Chloride 40 MEQ BID 04/29 2045 AC 05/02 PO 2135 Thiamine HCl 100 MG DAILY 05/01 1417 AC 05/04 PO 1001 Tramadol HCl 50 MG Q6P PRN 04/29 0915 AC 05/02 PO 213 Trazodone HCl 100 MG QPM 04/29 2200 AC 05/03 PO 214 Trimethobenzamide HCl 200 MG 4 TIMES/DAY PRN 04/29 915 AC IM Warfarin Sodium 7.5 MG COUMADIN 1700 ONE 05/04 1700 AC PO 05/04 1701 Warfarin Sodium 8 MG COUMADIN 1700 ONE 05/03 1700 DC 05/03 PO 05/03 1701 1601 Last 24 Hrs of Lab/Osorio Results Last 24 Hrs of Labs/Mics: Laboratory Tests 05/04/17 0652: Anion Gap 10, Estimated GFR > 60, BUN/Creatinine Ratio 16.7, PT 16.0 H, INR 1.53 H Orders CIWA Score (last 24 hrs): 2, 2, 2, 2, 1 Lines/Diet/Fluids Fluids/Infusions: none Lines: peripheral lines Restraints: none Assessment/Plan Assessment: 42-year-old man with past medical history significant for brain tumor status post resection, seizures on Keppra, PE in 2013 on Coumadin, diabetes mellitus with peripheral neuropathy, anxiety and depression, chronic back pain, 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 Problem list 1. Alcohol withdrawal 2. Electrolyte abnormalities (hyponatremia, hypokalemia and hypomagnesemia)- Resolved 3. Pain management for chronic back pain PLAN * Monitor vitals * Monitor electrolytes daily and replete accordingly * Continue CIWA protocol. * Stop scheduled Ativan taper and IV Ativan as needed per CIWA * Continue multivitamins/thiamine/folic acid * Continue pain management with tramadol * Continue other medications * Check INR daily and dose Coumadin accordingly -gave 7.5 milligram of Coumadin today CODE STATUS-Full code Diet-diabetic diet DVT prophylaxis-Coumadin for DVT prophylaxis Problem List: 1. Alcohol dependence Pain Ratin Pain Location: NA Pain Goal: Pain 4 or less Pain Plan: Continue tramadol Tomorrow's Labs & Rationales: Not needed as patient will be discharged DVT/Prophylaxis: pharmacological
--- NOTE | 2017-05-04 11:20 | PN- Att Addend ---
Attending Addendum Attending Brief Note No major changes lab abnormalities resolved, PT cleared patient. Will start disposition plans hopefully will not start drinking again. 24 TOTALS 05/04 0000 05/03 0000 Intake Total 1640 1810 Output Total 1825 1999 Balance -185 -190 Intake, IV 0 200 Intake, Oral 1640 1610 Number 1 0 Bowel Movements Output, Urine 1825 1999 Current Medications Sig/Diane Start time Last Medication Dose Route Stop Time Status Admin Docusate Sodium 100 MG DAILY PRN 04/29 0945 AC PO Folic Acid 1 MG DAILY 05/01 1417 AC 05/04 PO 1001 Gabapentin 300 MG TID 04/29 1000 AC 05/04 PO 1001 Levetiracetam 750 MG BID 04/29 1000 AC 05/04 PO 1000 Lorazepam 1.5 MG BID 05/03 2200 AC 05/04 PO 1000 Lorazepam 1.5 MG Q8 05/02 1400 DC 05/03 PO 0606 Lorazepam 1 MG Q3P PRN 05/01 1410 AC IV Magnesium Chloride 64 MG BID 04/29 2045 AC 05/04 PO 1001 Multivitamins 1 TAB DAILY 05/01 1415 AC 05/04 PO 1001 Potassium Chloride 40 MEQ BID 04/29 2045 AC 05/02 PO 2135 Thiamine HCl 100 MG DAILY 05/01 1417 AC 05/04 PO 1001 Tramadol HCl 50 MG Q6P PRN 04/29 0915 AC 05/02 PO 2135 Trazodone HCl 100 MG QPM 04/29 2200 AC 05/03 PO 2142 Trimethobenzamide HCl 200 MG 4 TIMES/DAY PRN 04/29 0915 AC IM Warfarin Sodium 8 MG COUMADIN 1700 ONE 05/03 1700 DC 05/03 PO 05/03 1701 1601
--- NOTE | 2017-05-04 13:59 | NUR ---
HAve been monitoring patients progress. Patient without signs and symptoms of ETOH Withdrawal at this time and medical team feels as though patient is stable for discharge today. I attempted to meet with patient this morning; Shelton declined visit stating that he wished to sleep. Call received from director of casework department; patients mother in patients room now. Met with patient and his mother. Patient gives verbal permission to speak in front of mother. Mother expressing concern about discharge home, patient with inability to ambulate indepenedently, so I ask "how does he get his alcohol?" , and she reports that she buys it for him. I have encouraged her to stop purchasing alcohol; Shelton reports that he is not interested in treatment at any level (particularly IOP as described to him as 3 hours perday, 3 days per week.). Later, I received a call saying that patient will now come to IOP. Intake secured for tomorrow, ThursdayMay 05 at 11:30am. This information to be included on discharge instructions and will be written in his discharge instructions.
== END 2017-05-04 15:45 | disposition home health service (06) | DRG 897 ==
LOC: ERH 06:31 → ERHI 07:24 → 1NO 07:24 → ENRESERV 21:49 → ENTRNSPT 22:34 → 1NO 22:44 → CMPTRNSPT 04-30 08:27 → 1NO 05-04 15:45 → ENPENDDIS 05-04 15:56
PROVIDERS: Emergency Medicine; Internal Medicine; Internal Medicine Adolescent Medicine; Student in an Organized Health Care Education/Training Program; ADMIT Internal Medicine
DX: F10.239 Alcohol dependence with withdrawal, unspecified (principal); F11.23 Opioid dependence with withdrawal; E87.4 Mixed disorder of acid-base balance; D68.9 Coagulation defect, unspecified; E46 Unspecified protein-calorie malnutrition; E11.40 Type 2 diabetes mellitus with diabetic neuropathy, unspecified; E87.1 Hypo-osmolality and hyponatremia; M87.151 Osteonecrosis due to drugs, right femur; M87.152 Osteonecrosis due to drugs, left femur; E86.0 Dehydration; E87.6 Hypokalemia; Y90.0 Blood alcohol level of less than 20 mg/100 ml; R74.0 Nonspecific elevation of levels of transaminase and lactic acid dehydrogenase [LDH]; M54.9 Dorsalgia, unspecified; G89.29 Other chronic pain; T38.0X5A Adverse effect of glucocorticoids and synthetic analogues, initial encounter; Z79.84 Long term (current) use of oral hypoglycemic drugs; Z79.01 Long term (current) use of anticoagulants; Z86.711 Personal history of pulmonary embolism; Z86.718 Personal history of other venous thrombosis and embolism; F41.9 Anxiety disorder, unspecified; F32.9 Major depressive disorder, single episode, unspecified; G40.909 Epilepsy, unspecified, not intractable, without status epilepticus; E83.42 Hypomagnesemia; G47.00 Insomnia, unspecified; M48.56XD Collapsed vertebra, not elsewhere classified, lumbar region, subsequent encounter for fracture with routine healing; Z81.1 Family history of alcohol abuse and dependence; Z86.011 Personal history of benign neoplasm of the brain; Z95.828 Presence of other vascular implants and grafts; K76.0 Fatty (change of) liver, not elsewhere classified; Z87.891 Personal history of nicotine dependence; Z68.28 Body mass index [BMI] 28.0-28.9, adult; E83.39 Other disorders of phosphorus metabolism
CPT/HCPCS: 1NSP; 84133; 84300; 36415; 80307; 81001; 82436; 82570; 93005; 93010; 96365; 96375; 97116-GO; 97161-GP; 97530-GO; G0480; J1953; J2405; J2765; J3250; J3490; J7042; J7060